=== PATIENT | female | born 1960 | race Caucasian/White ===

== ENCOUNTER 2018-05-13 11:09 | Emergency (ER) | payer MEDICARE, MEDICAID, SELFPAY ==
[2018-05-13 11:11] VITALS: BP 147/84; PULSE 79; RESP 18; TEMP 36.6; O2SAT 98; BMI 27.4
--- NOTE | 2018-05-13 11:33 | NURSING ---
JAMIE, CRISIS, AWARE OF PATIENT
--- NOTE | 2018-05-13 11:34 | ED.VISSUMM ---
- ER Visit Summary Date of Service: 05/13/18 Chief Complaint: Auditory hallucinations and suicidal History of Present Illness: The patient is a 58 F no significant past psychiatric history. Does have a history of anxiety. Per her daughter reportedly over the last month patient has been hearing people that are not there. Believes the police to come and rest her. Believes people are out to get her. This has her concerned and now she is talking about being so suicidal. She has never had a prior psychiatric diagnosis or admission. She has never had a prior suicide attempt. Physical Examination: Well-appearing middle-age female. Vital signs are stable afebrile. No distress. Daughter at bedside. HEENT exam unremarkable atraumatic. Pupils round reactive light. Moist mucous membranes. No facial droop. No trauma to the face or scalp. Neck nontender. Lungs clear to auscultation bilaterally. Heart regular rhythm no murmur. Abdomen soft nontender. Normal bowel sounds. She is moving all 4 extremities. Neurovascularly intact. Normal range of motion. Nontender no deformities. No signs of trauma or track rashid. Back nontender. Neurologically she is awake and alert. She knows month, day and year. She knows where she is in who she has. Currently she is cooperative. She is not violent. She is not verbally aggressive. Test Results: [] Emergency Department Course and Treatment: Patient will undergo ED mental health evaluation Treatment Plan: [] Disposition: [] Impression: Acute auditory hallucinations New onset underlying psychiatric illness Suicidal ideation This note was generated with [employer] dictation software. It may contain incorrect words, spelling, and punctuation that were not noted in review of the chart prior to signing ED Disposition - Plan for ED Patient: Chief Complaint: Suicidal Referrals: Valentin Paige MD [Primary Care Provider] -
[2018-05-13 12:08] LABS: Absolute Neutrophil Count 4.8 X10^3/uL (2.0-7.7); Basophil# 0.01 X10^3/uL; Basophil% 0.1 % (0-1); Eosinophil# 0.04 X10^3/uL; Eosinophils% 0.6 % (0-5); Hematocrit 39.3 % (37-47); Hemoglobin 12.7 g/dl (12.0-15.0); Lymphocyte % 22.5 % (19-41); Mean Corp Hgb Conc 32.3 g/gl (32-36); Mean Corpuscular Hgb 27.7 pg (27.0-32.0); Mean Corpuscular Volume 85.6 fL (81-99); Mean Platelet Vol. 8.9 fl (6.2-12.0); Monocyte# 0.66 X10^3/uL; Monocyte% 9.3 % (0-10); Neutrophil % 67.4 % (47-70); POSITIVE COUNT NO; POSITIVE DIFFERENTIAL NO; POSITIVE MORPHOLOGY NO; Platelet Count 286 K/mm3 (150-450); RBC Distribution Width CV 13.9 % (11.6-14.6); RBC Distribution Width SD 43.1 fl (35.1-43.9); Red Blood Count 4.59 M/mm3 (4.2-5.4); White Blood Count 7.1 K/mm3 (4.4-11.0)
[2018-05-13 12:20] LABS: Anion Gap 8 (5-15); BUN 7 mg/dL (7-18); BUN/Creat Ratio 8.6 RATIO (10-20); Calcium,Total 9.2 mg/dL (8.5-10.1); Chloride 107 mmol/L (98-107); Creatinine, Serum 0.82 mg/dL (0.55-1.02); EST Glomerular Filtration Rate 76 mL/min (>60); Est Glom Filt Rate - Afr Amer 92 mL/min (>60); Estimated Creatinine Clearance 66.47 ml/min; Glucose 99 mg/dL (74-106); Potassium 3.6 mmol/L (3.5-5.1); Sodium Level 141 mmol/L (136-145)
[2018-05-13 12:27] LABS: Pregnancy, Serum, hCG Quali. NEGATIVE Negative (0-9 Nonpreg)
[2018-05-13 12:58] LABS: Alcohol, Blood (Medical)-Serum < 3.0 mg/dL
[2018-05-13 14:14] LABS: Amphetamine Urine VISTA NEGATIVE (<1000 ng/mL); Barbiturate Urine VISTA NEGATIVE (< 200 ng/mL); Benzodiazepine Urine VISTA NEGATIVE (< 200 ng/mL); Cocaine Urine VISTA NEGATIVE (< 300 ng/mL); Ecstacy Urine VISTA NEGATIVE (< 500 ng/mL); Methadone Urine VISTA NEGATIVE (< 300 ng/mL); PCP Urine VISTA NEGATIVE (< 25 ng/mL); THC Urine VISTA NEGATIVE (< 50 ng/mL); Vista UDS pH Range 6
--- NOTE | 2018-05-13 14:20 | ED.RN ---
PT RECEIVED LUNCH TRAY. FAMILY MEMBER AT BEDSIDE, DENIES FURTHER NEEDS AT THIS TIME
--- NOTE | 2018-05-13 15:35 | EKG12_ITS ---
Test Reason : MENTAL HEALTH Blood Pressure : / mmHG Vent. Rate : 071 BPM Atrial Rate : 071 BPM P-R Int : 140 ms QRS Dur : 088 ms QT Int : 460 ms P-R-T Axes : 043 -06 019 degrees QTc Int : 499 ms Normal sinus rhythm Moderate voltage criteria for LVH, may be normal variant Prolonged QT Abnormal ECG Confirmed by LOLIS VÁZQUEZ, VIPUL ([id number]), editor producer JAYDEN SELLERS ([id number]) on 05/16/2018 9:00:14 AM Referred By: RAMIRO Confirmed By:VIPUL DANIELLE MD
[2018-05-13 15:43] LABS: Bacteria 0 SEEN /hpf (None Seen); Mucous, Urine 0 SEEN /hpf (<or=2+); Red Blood Cells-Urine 0 SEEN /hpf (0-5)
[2018-05-13 15:44] VITALS: BP 131/67; PULSE 70; O2SAT 94
[2018-05-13 15:55] LABS: Color, Urine Yellow (Yellow); Glucose, Dipstick Normal (Normal); Ketone-Dipstick Negative (Negative); Leukocyte Esterase-Dipstick Negative /ul (Negative); Nitrite-Dipstick Negative (Negative); Occult Blood-Urine 25 /ul (Negative); Protein-Dipstick Negative (Negative); Specific Gravity, Urine 1.005 (1.002-1.030); Urine Bilirubin Dipstick Negative (Negative); Urine Clarity Clear (Clear); Urine Urobilinogen Normal (Normal)
[2018-05-13 16:05] LABS: Squamous Epithelial Cells - UA 0-5 SEEN /hpf (5-10); White Blood Cells 0-5 SEEN /hpf (0-5)
[2018-05-13 16:09] LABS: AST(SGOT) 16 U/L (15-37); Alanine Aminotransfer ALT/SGPT 38 U/L (13-56); Albumin, Serum 3.6 g/dL (3.2-5.0); Alkaline Phosphatase 96 U/L (45-117); Bilirubin, Direct 0.12 mg/dL (0.00-0.30); Globulin 4.2 g/dL (2.2-4.2); Protein, Total 7.8 g/dL (6.4-8.2)
--- NOTE | 2018-05-13 17:27 | NURSING ---
[facility] 6W ROOM 625B REPORT [phone]
--- NOTE | 2018-05-13 18:00 | NURSING ---
CALLED BRANDI ROMAN IS FROM [place]
[2018-05-13 18:13] VITALS: BP 131/76; PULSE 71; RESP 18; O2SAT 92
== END 2018-05-13 18:47 | disposition short-term general hospital (02) ==
PROVIDERS: Emergency Provider Emergency Medicine; Family Provider Family Medicine; PCP Family Medicine
DX: R44.0 Auditory hallucinations (principal); F99 Mental disorder, not otherwise specified; R45.851 Suicidal ideations; F41.9 Anxiety disorder, unspecified; I10 Essential (primary) hypertension; K21.9 Gastro-esophageal reflux disease without esophagitis; Z79.899 Other long term (current) drug therapy
CPT/HCPCS: 80048; 80076; 80307; 80320; 81001; 84703; 85025; 93005; 99284; G0480

== ENCOUNTER 2018-05-27 22:23 | Observation (INO) | payer MEDICARE, MEDICAID, SELFPAY ==
[2018-05-27 22:24] VITALS: BP 138/92; PULSE 67; RESP 16; TEMP 35.9; O2SAT 99; BMI 25.8
--- NOTE | 2018-05-27 22:27 | RAD_ITS ---
STUDY: X-RAY CHEST REASON FOR EXAM: Female, 58 years old. PT WITH STERNAL CHEST PAIN AND SOB, NAUSEA. RADIATING TO LEFT ARM SINCE 2029 TECHNIQUE: Single AP portable view of the chest. COMPARISON: None. FINDINGS: The lungs are clear and expanded. There is no demonstrated pleural abnormality. Normal size heart. Normal mediastinum and sandrita. Normal visualized pulmonary arteries. Normal visualized aortic arch and descending thoracic aorta. Normal visualized thoracic spine. There is a healed fracture of the right clavicle. There is no demonstrated abnormality of the visualized soft tissue structures of the upper abdomen. RAD/Chest 1 View (Portable) IMPRESSION: Normal x-ray examination of the chest. Electronically Signed: Maik Mujica MD at 23:32 EDT Tel , Service support ,
--- NOTE | 2018-05-27 22:27 | EKG12_ITS ---
Test Reason : CP Blood Pressure : / mmHG Vent. Rate : 064 BPM Atrial Rate : 064 BPM P-R Int : 120 ms QRS Dur : 084 ms QT Int : 420 ms P-R-T Axes : -02 004 053 degrees QTc Int : 433 ms Normal sinus rhythm with sinus arrhythmia Normal ECG Confirmed by LOLIS VÁZQUEZ, VIPUL ([id number]), editor in chief newspaper JAYDEN SELLERS ([id number]) on 05/28/2018 2:20:22 PM Referred By: Ariel Jimenez Confirmed By:VIPUL DANIELLE MD
[2018-05-27 23:00] LABS: Absolute Lymphocyte Count 2.31 X10^3/ul (0.83-4.51); Absolute Neutrophil Count 3.9 X10^3/uL (2.0-7.7); Basophil# 0.02 X10^3/uL; Basophil% 0.3 % (0-1); Eosinophil# 0.04 X10^3/uL; Eosinophils% 0.6 % (0-5); Hematocrit 39.1 % (37-47); Hemoglobin 12.6 g/dl (12.0-15.0); Lymphocyte # 2.31 X10^3/ul (4.0); Lymphocyte % 32.9 % (19-41); Mean Corp Hgb Conc 32.2 g/gl (32-36); Mean Corpuscular Hgb 27.7 pg (27.0-32.0); Mean Corpuscular Volume 85.9 fL (81-99); Mean Platelet Vol. 8.9 fl (6.2-12.0); Monocyte# 0.75 X10^3/uL; Monocyte% 10.7 % (0-10); Neutrophil # 3.89 X10^3/uL (2.7-7.7); Neutrophil % 55.4 % (47-70); Platelet Count 284 K/mm3 (150-450); RBC Distribution Width CV 14.2 % (11.6-14.6); RBC Distribution Width SD 43.8 fl (35.1-43.9); Red Blood Count 4.55 M/mm3 (4.2-5.4)
[2018-05-27 23:01] LABS: POSITIVE COUNT NO; POSITIVE DIFFERENTIAL NO; POSITIVE MORPHOLOGY NO
[2018-05-27 23:07] VITALS: BP 152/72; PULSE 61; RESP 16; O2SAT 98
[2018-05-27 23:16] LABS: Anion Gap 6 (5-15); BUN 9 mg/dL (7-18); Chloride 108 mmol/L (98-107); EST Glomerular Filtration Rate 60 mL/min (>60); Est Glom Filt Rate - Afr Amer 73 mL/min (>60); Estimated Creatinine Clearance 56.71 ml/min; Glucose 95 mg/dL (74-106); Potassium 3.9 mmol/L (3.5-5.1); Sodium Level 142 mmol/L (136-145)
[2018-05-27] MEDS: Aspirin 81 MG TAB.CHEW 324 MG PO (23:31)
[2018-05-27 23:43] VITALS: BP 154/77; PULSE 63
[2018-05-27 23:53] VITALS: BP 121/77; PULSE 69
[2018-05-27 23:58] VITALS: BP 129/76; PULSE 68
[2018-05-28] VITALS (12 sets, daily range): BP systolic 123–154; BP diastolic 70–87; PULSE 55–80; RESP 15–18; TEMP 36.4–36.7; O2SAT 96–100; BMI 24.2
[2018-05-28] MEDS: Mag Hydrox/Al Hydrox/Simeth 30 ML UDC PO (01:04)
--- NOTE | 2018-05-28 01:53 | ED.VISSUMM ---
- ER Visit Summary Date of Service: 05/28/18 Chief Complaint: Mid sternal heaviness with nausea and dyspnea. History of Present Illness: The patient is a 58 F who has history of hypertension, hypercholesterolemia, CVA and was a smoker of 2 packs/day. She quit 4 years ago when she was informed she has COPD. She states discomfort started at 1900. She was on the phone. She does admit she was upset. She has history of reflux and states this is not like her reflux pain. The pain is not positional. She states the pressure radiated to the left upper extremity and down the left upper extremity towards the wrist. She denied diaphoresis. She does report bruising easily. She is presently not on aspirin. She denies fever, chills or night sweats. She denies weight gain or weight loss. She denies visual, ocular auditory symptoms. She denies palpitations. She denies orthopnea or PND. She denies vomiting, diarrhea, black or maroon stool. She denies urologic symptoms. She denies neck or back pain. She denies rash. She denies headache, anesthesia, paresthesia or motor weakness. She denies polyuria, polydipsia or polyphagia. She denies urticaria or angioedema. Physical Examination: Vital signs noted and remarkable for an elevated blood pressure 152/72. Head is atraumatic normocephalic. Pupils are equal round reactive. Extraocular muscles are intact. TMs are pearly white with landmarks noted. Nares patent with no drainage. Posterior pharynx without erythema or exudate. Uvula is midline. There is no dysphonia or dysphasia. Trachea is midline. There is no stridor with auscultation of the neck. Heart is regular without murmur, gallop or rub. S1 and S2 are normal. Lungs are clear to auscultation with good movement of air bilaterally. There is no reproducible chest pain and there are no skin lesions or rash noted. Abdomen is soft and nontender with a negative Barker sign. There is no CVA tenderness noted. There is no asymmetry, swelling, discoloration, leg vein distention, palpable cords or tenderness along the distribution of the deep venous system. Distal pulses are palpable and symmetric. Neuro exam is nonfocal. Test Results: EKG was obtained and interpreted by me as normal with a ventricular rate of 64. OK interval, QRS duration and QT interval are normal. [place] is normal. There is slight respiratory variation. Portal checks x-ray reveals chronic changes unchanged from October 25, 2015. There is orthopedic hardware secondary to open reduction internal fixation of right clavicle fracture. CBC normal basic metabolic panel is unremarkable. First troponin is less than 0.015. Emergency Department Course and Treatment: To evaluate patient's chest pain EKG, chest x-ray and blood work was obtained. She received 4 baby aspirin. She did receive nitroglycerin with improvement but not resolution. Social history of reflux GI cocktail was administered with no effect. Treatment Plan: With her multiple risk factors and the fact that she has had a prior stroke which would indicate that she has atherosclerotic disease the hospitalist was contacted for observation status and further testing to evaluate cardiac versus noncardiac etiology of her chest discomfort Disposition: 23-hour observation status PCU Impression: Midsternal chest pain History of hypertension History of hypercholesterolemia History of CVA History of COPD This note was generated with [employer] dictation software. It may contain incorrect words, spelling, and punctuation that were not noted in review of the chart prior to signing ED Disposition - Plan for ED Patient: Chief Complaint: Chest Pain Referrals: Valentin Paige MD [Primary Care Provider] -
--- NOTE | 2018-05-28 01:58 | ED.DCSUM_ITS ---
- ER Visit Summary Date of Service: 05/28/18 Chief Complaint: Mid sternal heaviness with nausea and dyspnea. History of Present Illness: The patient is a 58 F who has history of hypertension, hypercholesterolemia, CVA and was a smoker of 2 packs/day. She quit 4 years ago when she was informed she has COPD. She states discomfort started at 1900. She was on the phone. She does admit she was upset. She has history of reflux and states this is not like her reflux pain. The pain is not positional. She states the pressure radiated to the left upper extremity and down the left upper extremity towards the wrist. She denied diaphoresis. She does report bruising easily. She is presently not on aspirin. She denies fever, chills or night sweats. She denies weight gain or weight loss. She denies visual, ocular auditory symptoms. She denies palpitations. She denies orthopnea or PND. She denies vomiting, diarrhea, black or maroon stool. She denies urologic symptoms. She denies neck or back pain. She denies rash. She denies headache, anesthesia, paresthesia or motor weakness. She denies polyuria, polydipsia or polyphagia. She denies urticaria or angioedema. Physical Examination: Vital signs noted and remarkable for an elevated blood pressure 152/72. Head is atraumatic normocephalic. Pupils are equal round reactive. Extraocular muscles are intact. TMs are pearly white with landmarks noted. Nares patent with no drainage. Posterior pharynx without erythema or exudate. Uvula is midline. There is no dysphonia or dysphasia. Trachea is midline. There is no stridor with auscultation of the neck. Heart is regular without murmur, gallop or rub. S1 and S2 are normal. Lungs are clear to auscultation with good movement of air bilaterally. There is no reproducible chest pain and there are no skin lesions or rash noted. Abdomen is soft and nontender with a negative Barker sign. There is no CVA tenderness noted. There is no asymmetry, swelling, discoloration, leg vein distention, palpable cords or tenderness along the distribution of the deep venous system. Distal pulses are palpable and symmetric. Neuro exam is nonfocal. Test Results: EKG was obtained and interpreted by me as normal with a ventricular rate of 64. RI interval, QRS duration and QT interval are normal. [place] is normal. There is slight respiratory variation. Portal checks x-ray reveals chronic changes unchanged from October 25, 2015. There is orthopedic hardware secondary to open reduction internal fixation of right clavicle fracture. CBC normal basic metabolic panel is unremarkable. First troponin is less than 0.015. Emergency Department Course and Treatment: To evaluate patient's chest pain EKG, chest x-ray and blood work was obtained. She received 4 baby aspirin. She did receive nitroglycerin with improvement but not resolution. Social history of reflux GI cocktail was administered with no effect. Treatment Plan: With her multiple risk factors and the fact that she has had a prior stroke which would indicate that she has atherosclerotic disease the hospitalist was contacted for observation status and further testing to evaluate cardiac versus noncardiac etiology of her chest discomfort Disposition: 23-hour observation status PCU Impression: Midsternal chest pain History of hypertension History of hypercholesterolemia History of CVA History of COPD This note was generated with [employer] dictation software. It may contain incorrect words, spelling, and punctuation that were not noted in review of the chart prio r to signing ED Disposition - Plan for ED Patient: Chief Complaint: Chest Pain Referrals: Valentin Paige MD [Primary Care Provider] -
--- NOTE | 2018-05-28 02:05 | PCM.HP.STD ---
Problem List (1) Chest pain at rest Status: Acute (2) Dyslipidemia Status: Acute (3) COPD (chronic obstructive pulmonary disease) Status: Chronic Qualifiers: COPD type: unspecified COPD Qualified Code(s): J44.9 - Chronic obstructive pulmonary disease, unspecified (4) HTN (hypertension) Status: Acute Qualifiers: Hypertension type: essential hypertension Qualified Code(s): I10 - Essential (primary) hypertension History of Present Illness Date of Admission: 05/28/18 Chief Complaint: chest Pain The patient is a 58 year old F with a significant history of radiographically identified CVA without symptoms; former smoker( quit 4 years ago after diagnosis of COPD); COPD; hypertension; hyperlipidemia; depression; anxiety; bipolar; nephrectomy (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 He reports being upset an hour before the chest pain started. She rated chest pain at a 7 out of 10. Associated with symptoms is nausea without vomiting. Patient also reports numbness in her left fingers that goes up to her left arm. She reports that her chest pain is different from her symptoms of GERD. At emergency department she was given GI cocktail that did not really help her. She admits some improvement with nitroglycerin brought her pain from a 7 to a 5. In the past patient had a chemical stress test. She reports unable to do a treadmill stress test due to probable arthritis. Patient reports that an echocardiogram at [facility] was that showed a valvular disease. Chest pain Admit to a monitored bed on PCU CXR independently reviewed confirms no acute cardiopulmonary process. EKG independently reviewed confirms sinus rhythm without any T wave or ST abnormalities. Obtain patient records from [facility]. Received aspirin 324 mg at emergency department. ASA 81 mg p.o. daily SL NTG 0.4 mg prn as needed for chest pain Serial cardiac enzymes Stat EKG as needed for chest pain Home beta-michael and lisinopril continued. Statin escalated to high intensity statins. Chemical stress test in the AM if the cardiac enzymes are negative Hypertension Blood pressure fairly controlled at admission Amlodipine and metoprolol continue GERD Protonix continued COPD/Asthma Stable on admission Albuterol and tiotropium continued Anxiety/Depression/Bipolar Effexor and Abilify continued DVT prophylaxis ordered. Past Medical History Past Medical History (Chronic Problems): Chronic Problems (Last Reviewed 05/28/18 @ 03:41 by Ariel Jimenez MD) COPD (chronic obstructive pulmonary disease) (Chronic) Medical History: Medical History (Last Reviewed 05/28/18 @ 03:41 by Ariel Jimenez MD) Anxiety (Acute) F41.9 Cardiac murmur (Acute) R01.1 Asthma (Acute) J45.909 Hemorrhoid (Acute) K64.9 GERD (gastroesophageal reflux disease) (Acute) K21.9 Personal history of colonic polyps (Acute) Z86.010 Dyslipidemia (Acute) E78.5 Bilateral carotid artery stenosis without cerebral infarction (Acute) I65.23 Non-rheumatic aortic sclerosis (Acute) I70.0 Aortic valve stenosis (Acute) I35.0 COPD (chronic obstructive pulmonary disease) (Chronic) J44.9 HTN (hypertension) (Acute) I10 Allergies No Known Allergies Allergy (Verified 05/13/18 11:14) Home Medications: Ambulatory Orders Medication Instructions Recorded amlodipine 10 mg tablet 10 mg PO QDAY 04/03/18 atorvastatin 10 mg tablet 10 mg PO QDAY 04/03/18 benzonatate 100 mg capsule 100 mg PO TID PRN 04/03/18 escitalopram 5 mg tablet 5 mg PO QDAY 04/03/18 lisinopril 20 mg tablet 40 mg PO BID tab 04/03/18 lorazepam 0.5 mg tablet 0.5 mg PO QHS PRN 04/03/18 metoprolol tartrate 25 mg tablet 50 mg PO BID tab 04/03/18 omeprazole 40 mg capsule,delayed 40 mg PO BID cap 04/03/18 release tiotropium bromide 2.5 2 puff INHALATION QDAY 04/03/18 mcg/actuation mist for inhalation Albuterol IH (ProAir) [Proair Hfa 2 puff INHALATION Q4H PRN PRN 05/13/18 (SP)Vent Pts] Fluticasone/Vilanterol [Breo 1 each IH DAILY 05/13/18 Ellipta Inhaler] Loperamide [Imodium] 2 mg PO Q6H PRN PRN 05/13/18 Aripiprazole [Abilify] 10 mg PO DAILY 05/27/18 Venlafaxine XR [Effexor Xr] 37.5 mg PO DAILY 05/27/18 Surgical History: Surgical History (Last Reviewed 05/28/18 @ 03:41 by Ariel Jimenez MD) History of colonoscopy Onset Date: ~2014 Z98.890 History of kidney donation Z90.5 History of tubal ligation Z98.51 Surgical History: angioplasty, - - cardiac catheterization 1 yr ago, L nephrectomy, R shoulder surgery Psychiatric History: Anxiety [employer] WORK[employer] History: 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 Denies: Palpitations Respiratory: Denies: Cough, Shortness of breath at rest, Sputum production Gastrointestinal: Reports: Nausea. Denies: Abdominal Pain, Vomiting Genitourinary: Denies: Dysuria Musculoskeletal: Denies: Joint Pain, Joint Tenderness Skin: Denies: Rash, Wounds Neurological: Reports: Numbness - From left fingers extending to left arm.. Denies: Focal weakness, Tingling Psychiatric: Denies: Anxiety, Depression, Homicidal Ideations, Suicidal Ideations Hematologic/ Lymphatic: Denies: Easy Bruising, Easy Bleeding VTE Information - Inpt Only VTE Present on Admission: No VTE Mechan Device Prophylaxis: None VTE Pharm Prophylaxis ordered?: Yes Patient Problems: Active and Suspected Problems (Last Reviewed 05/28/18 @ 03:41 by Ariel Jimenez MD) Chest pain at rest (Acute) - Physical Exam General: Alert, Oriented x3, Cooperative HEENT: Atraumatic, PERRLA, EOMI, Normocephalic Neck: Supple, No JVD, Negative Carotid Bruits Lungs: Clear to auscultation, Normal air movement Cardiovascular: Regular rate, No murmurs Abdomen: Bowel Sounds Present, Soft, Non Tender Extremities: No edema, Capillary Refill Less than 3 Seconds Skin: No rashes, No breakdown Musculoskeletal: No Tenderness to Palpation of Joints or Extremities Neurological: Cranial nerves II-XII grossly intact Psych/Mental Status: Normal Affect, Appropriate Vital Signs Temp Pulse Resp BP Pulse Ox 96.7 F L 59 L 16 141/74 H 97 05/27/18 22:24 05/28/18 02:04 05/28/18 02:04 05/28/18 02:04 05/28/18 02:04 Oxygen Flow Rate (L/min) 2 Oxygen Delivery Method Nasal Cannula Weight: 72.575 kg Body Mass Index (BMI) 25.8 Laboratory Tests Past 24 Hrs 05/27/18 05/27/18 22:50 22:50 WBC 7.0 RBC 4.55 Hgb 12.6 Hct 39.1 MCV 85.9 MCH 27.7 MCHC 32.2 RDW 14.2 RDW Differential 43.8 Plt Count 284 MPV 8.9 Immature Gran % (Auto) 0.100 Neut % (Auto) 55.4 Lymph % (Auto) 32.9 [place] % (Auto) 10.7 H Eos % (Auto) 0.6 Baso % (Auto) 0.3 Absolute Neuts (auto) 3.9 Absolute Lymphs (auto) 2.31 Total Counted Not Reportable Sodium 142 Potassium 3.9 Chloride 108 H Carbon Dioxide 28.0 Anion Gap 6 BUN 9 Creatinine 1.00 Estim Creat Clear Calc 56.71 Est GFR (MDRD) Af Amer 73 Est GFR (MDRD) Non-Af 60 BUN/Creatinine Ratio 9.0 L Glucose 95 Calcium 9.0 Troponin I < 0.015 Assessment/Plan All Active Problems (Last Reviewed 05/28/18 @ 03:41 by Ariel Jimenez MD) Chest pain at rest (Acute) Anxiety (Acute) Cardiac murmur (Acute) Asthma (Acute) Hemorrhoid (Acute) GERD (gastroesophageal reflux disease) (Acute) Personal history of colonic polyps (Acute) Dyslipidemia (Acute) Bilateral carotid artery stenosis without cerebral infarction (Acute) Non-rheumatic aortic sclerosis (Acute) Aortic valve stenosis (Acute) HTN (hypertension) (Acute) Chest pain in adult (Acute) The patient is a 58 year old F with a significant history of radiographically identified CVA without symptoms; former smoker( quit 4 years ago after diagnosis of COPD);COPD; hypertension; hyperlipidemia; depression; anxiety; bipolar; nephrectomy (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 Chest pain Admit to a monitored bed on PCU CXR independently reviewed confirms no acute cardiopulmonary process. EKG independently reviewed confirms sinus rhythm without any T wave or ST abnormalities. Obtain patient records from [facility]. Received aspirin 324 mg at emergency department. ASA 81 mg p.o. daily SL NTG 0.4 mg prn as needed for chest pain Morphine as needed for chest pain Serial cardiac enzymes. Troponin negative so far. Stat EKG as needed for chest pain Home beta-michael and lisinopril continued. Statin escalated to high intensity statins. Chemical stress test in the AM if the cardiac enzymes are negative. N.p.o. Trend BMP. Hypertension Blood pressure fairly controlled at admission Amlodipine and metoprolol continue GERD Protonix continued COPD/Asthma Stable on admission Albuterol and tiotropium continued Anxiety/Depression/Bipolar Effexor and Abilify continued DVT prophylaxis Subcutaneous Lovenox. Code Visit OBSV E&M: 17100 Initial observation care L3
--- NOTE | 2018-05-28 03:11 | EKG12_ITS ---
Test Reason : ADM EKG Blood Pressure : / mmHG Vent. Rate : 064 BPM Atrial Rate : 064 BPM P-R Int : 128 ms QRS Dur : 090 ms QT Int : 426 ms P-R-T Axes : 013 002 041 degrees QTc Int : 439 ms Normal sinus rhythm Normal ECG When compared with ECG of 27-MAY-2018 22:25, MANUAL COMPARISON REQUIRED, DATA IS UNCONFIRMED Confirmed by LOLIS VÁZQUEZ, VIPUL ([id number]), photo editor JAYDEN SELLERS ([id number]) on 05/30/2018 3:37:04 PM Referred By: Ariel Jimenez Confirmed By:VIPUL DANIELLE MD
[2018-05-28] MEDS: Morphine 2 MG/ML Syringe IV (04:35)
[2018-05-28] MEDS: Atorvastatin Calcium 80 MG Tablet PO (04:36)
[2018-05-28] MEDS: Lisinopril 40 MG Tablet PO (04:36)
[2018-05-28] MEDS: 0.9% NaCl Peripheral Flush Adult/Peds IV (04:39)
[2018-05-28 06:01] LABS: Absolute Lymphocyte Count 1.86 X10^3/ul (0.83-4.51); Absolute Neutrophil Count 2.6 X10^3/uL (2.0-7.7); Basophil# 0.02 X10^3/uL; Basophil% 0.4 % (0-1); Eosinophil# 0.07 X10^3/uL; Eosinophils% 1.4 % (0-5); Hematocrit 36.5 % (37-47); Hemoglobin 11.6 g/dl (12.0-15.0); Lymphocyte # 1.86 X10^3/ul (4.0); Lymphocyte % 37.5 % (19-41); Mean Corp Hgb Conc 31.8 g/gl (32-36); Mean Corpuscular Hgb 27.5 pg (27.0-32.0); Mean Corpuscular Volume 86.5 fL (81-99); Mean Platelet Vol. 8.8 fl (6.2-12.0); Monocyte# 0.41 X10^3/uL; Monocyte% 8.3 % (0-10); Neutrophil % 52.4 % (47-70); Platelet Count 245 K/mm3 (150-450); RBC Distribution Width CV 14.2 % (11.6-14.6); RBC Distribution Width SD 43.9 fl (35.1-43.9); Red Blood Count 4.22 M/mm3 (4.2-5.4)
[2018-05-28 06:08] LABS: International Normalized Ratio 1.1
[2018-05-28 06:09] LABS: POSITIVE COUNT NO; POSITIVE DIFFERENTIAL NO; POSITIVE MORPHOLOGY NO; Partial Thromboplast Time 27.5 Seconds (24.1-36.2)
[2018-05-28 06:25] LABS: Anion Gap 6 (5-15); BUN 9 mg/dL (7-18); BUN/Creat Ratio 10.7 RATIO (10-20); Calcium,Total 8.5 mg/dL (8.5-10.1); Chloride 107 mmol/L (98-107); Creatinine, Serum 0.84 mg/dL (0.55-1.02); EST Glomerular Filtration Rate 73 mL/min (>60); Est Glom Filt Rate - Afr Amer 89 mL/min (>60); Estimated Creatinine Clearance 67.51 ml/min; Glucose 96 mg/dL (74-106); Potassium 3.9 mmol/L (3.5-5.1); Sodium Level 143 mmol/L (136-145)
[2018-05-28] MEDS: Ipratropium/Albuterol Sulfate 3 ML AMPUL.NEB INHALATION (06:52)
[2018-05-28] MEDS: Budesonide Respules 0.5 MG/2 ML AMPUL.NEB. INHALATION (06:53)
[2018-05-28] MEDS: amLODIPine 10 MG Tablet PO (10:29)
[2018-05-28] MEDS: Escitalopram Oxalate 10 MG Tablet 5 MG PO (10:29)
[2018-05-28] MEDS: Aspirin E.C. 81 MG Tablet PO (10:29)
[2018-05-28] MEDS: Venlafaxine XR 37.5 MG Capsule PO (10:29)
[2018-05-28] MEDS: Metoprolol Tartrate 50 MG Tablet PO (10:29)
[2018-05-28] MEDS: Pantoprazole Sodium 40 MG Tablet PO (10:29)
[2018-05-28] MEDS: ARIPiprazole 10 MG Tablet PO (10:29)
--- NOTE | 2018-05-28 10:42 | STRESSREP ---
Stress Test Report Pharmacologic myocardial perfusion stress test. 58-year-old lady with a history of chest pain. Stress protocol: Resting EKG demonstrates normal sinus rhythm with a rate of 60 bpm normal intervals and noted resting blood pressure 136/82 mmHg. 0.4 mg of regadenoson was infused per usual protocol followed by rapid intravenous saline flush injection continuous EKG monitoring was performed. At rest there were no ST or T wave changes noted suggest abnormal flow reserve peak infusion no ST or T wave changes were noted suggest abnormal flow reserve. The maximum heart rate attained was 77 bpm which was 47% of maximum predicted heart rate the maximum workload was 1 metabolic equivalent. Myocardial perfusion protocol. 12.0 mCi of technetium 99m sestamibi was injected at rest. 0.4 mg of regadenoson was infused per usual protocol peak infusion 36.4 mCi of technetium 99m sestamibi was injected stress images were obtained stress and rest images were reconstructed and compared in the short axis vertical long horizontal long axis. Gated images were also obtained Perfusion SPECT analysis: Review of the stress images demonstrate normal uptake of tracer noted in all areas of the myocardium. The resting images similarly demonstrate normal uptake of tracer noted in all areas of the myocardium. There is anterior breast attenuation artifact noted. No obvious ischemia is noted. Gated SPECT analysis: The gated ejection fraction is noted to be 51%. Conclusion: Normal pharmacologic myocardial perfusion stress test. Preserved ejection fraction.
--- NOTE | 2018-05-28 11:59 | DCINST_ITS ---
- Discharge Diagnoses Current Active Problems: Current Active and Chronic Problems (Last Reviewed 05/28/18 @ 03:41 by Ariel Jimenez MD) Chest pain at rest (Acute) You will use the following diet at home:: No restrictions Your food should be the consistency of: Regular Your liquids should be the consistency of: Regular/Thin Discharge Activity: Return to Normal Activity Weight Bearing Status: Full weight bearing Allergies/Adverse Reactions: Allergies No Known Allergies Allergy (Verified 05/13/18 11:14) Medications to take at Discharge amlodipine 10 mg tablet 10 mg PO QDAY 04/03/18 atorvastatin 10 mg tablet 10 mg PO QDAY 04/03/18 benzonatate 100 mg capsule 100 mg PO TID PRN 04/03/18 escitalopram 5 mg tablet 5 mg PO QDAY 04/03/18 lisinopril 20 mg tablet 40 mg PO BID tab 04/03/18 metoprolol tartrate 25 mg tablet 50 mg PO BID tab 04/03/18 omeprazole 40 mg capsule,delayed release 40 mg PO BID cap 04/03/18 tiotropium bromide 2.5 mcg/actuation mist for inhalation 2 puff INHALATION QDAY 04/03/18 Albuterol IH (ProAir) [Proair Hfa] 2 puff INHALATION Q4H PRN PRN 05/13/18 Fluticasone/Vilanterol [Breo Ellipta 100-25 Mcg INH] 1 each IH DAILY 05/13/18 Loperamide [Imodium] 2 mg PO Q6H PRN PRN 05/13/18 Aripiprazole [Abilify] 10 mg PO DAILY 05/27/18 Venlafaxine XR [Effexor Xr] 37.5 mg PO DAILY 05/27/18 Tramadol HCl [Ultram] 50 mg PO 4X/DAY PRN PRN #30 tab 05/28/18 The following prescriptions were given: Tramadol HCl [Ultram] 50 mg PO 4X/DAY PRN PRN #30 tab PRN Reason: Pain Primary Care Physician: Valentin Paige MD [Primary Care Provider] - Please follow up with your Primary Care Physician in: in 7-10 days Test Results: Test results from this visit will be discussed in further detail at your follow- up appointment, if applicable.
--- NOTE | 2018-05-28 12:22 | PHA.DC.MR ---
Pharmacy Service has performed discharge medication reconciliation for this patient. The patient's discharge medication list was reviewed for discrepancies and discrepancies were resolved.
--- NOTE | 2018-05-31 06:44 | DS.PCM_ITS ---
Discharge Date and Diagnosis Date of Admission: 05/28/18 Date of Discharge: 05/28/18 - Primary Discharge Diagnosis #1 musculoskeletal chest pain #2 hypertension #3 cerebrovascular disease #4 COPD - Secondary Discharge Diagnosis Chronic Problems (Last Reviewed 05/28/18 @ 03:41 by Ariel Jimenez MD) COPD (chronic obstructive pulmonary disease) (Chronic) Hospital Course and Treatment Operations: None Procedures: Nuclear stress test Summary of Care Provided: The patient is a 58 year old F who was seen in the emergency room at [facility] with chief complaint of precordial chest pain. Workup in the emergency room included an EKG which showed a normal sinus rhythm at 64 without evidence of ischemic changes. Chest x-ray revealed chronic changes unchanged from October 25, 2015, troponin was less than 0.015, CBC was normal. Patient was given nitroglycerin in the emergency room with improvement of her chest discomfort, reflux GI cocktail was administered with no effect. Hospitalist service was called to place patient in observation status on PCU, enzymes were cycled and remained negative, patient underwent a nuclear stress test on 05/28/18 which was negative for reversible ischemia. On 05/28/18, patient was seen and examined: On examination she appeared in good health and spirits. Vital signs as documented. Skin warm and dry and without overt rashes. Neck without JVD. Lungs clear. Heart exam notable for regular rhythm, normal sounds and absence of murmurs, rubs or gallops. Abdomen unremarkable and without evidence of organomegaly, masses, or abdominal aortic enlargement. Extremities nonedematous. Neuro: Cranial nerves II through XII are intact, no focal neuro deficits were noted. Psych: Patient was alert and oriented x3 and she was appropriate. Patient did not appear anxious or depressed. On 05/28/18, patient was seen and examined felt to be in stable condition for discharge home - Physical Exam Vital Signs Temp Pulse Resp BP Pulse Ox 98.1 F 80 16 143/81 H 98 05/28/18 10:20 05/28/18 11:01 05/28/18 10:20 05/28/18 10:29 05/28/18 10:20 Oxygen Flow Rate (L/min) 4 Oxygen Delivery Method Room Air Weight: 68.4 kg Body Mass Index (BMI) 24.2 Discharge Activity: Return to Normal Activity Weight Bearing Status: Full weight bearing Home Medications: Medications to take at Discharge amlodipine 10 mg tablet 10 mg PO QDAY 04/03/18 atorvastatin 10 mg tablet 10 mg PO QDAY 04/03/18 benzonatate 100 mg capsule 100 mg PO TID PRN 04/03/18 escitalopram 5 mg tablet 5 mg PO QDAY 04/03/18 lisinopril 20 mg tablet 40 mg PO BID tab 04/03/18 metoprolol tartrate 25 mg tablet 50 mg PO BID tab 04/03/18 omeprazole 40 mg capsule,delayed release 40 mg PO BID cap 04/03/18 tiotropium bromide 2.5 mcg/actuation mist for inhalation 2 puff INHALATION QDAY 04/03/18 Albuterol IH (ProAir) [Proair Hfa] 2 puff INHALATION Q4H PRN PRN 05/13/18 Fluticasone/Vilanterol [Breo Ellipta 100-25 Mcg INH] 1 each IH DAILY 05/13/18 Loperamide [Imodium] 2 mg PO Q6H PRN PRN 05/13/18 Aripiprazole [Abilify] 10 mg PO DAILY 05/27/18 Venlafaxine XR [Effexor Xr] 37.5 mg PO DAILY 05/27/18 Tramadol HCl [Ultram] 50 mg PO 4X/DAY PRN PRN #30 tab 05/28/18 Following Prescrptions Were Given to Patient: Tramadol HCl [Ultram] 50 mg PO 4X/DAY PRN PRN #30 tab PRN Reason: Pain Primary Care Physician: Valentin Paige MD [Primary Care Provider] - Please follow up with your Primary Care Physician in: in 7-10 days Disposition: Home Minutes spent on discharge:: 30 Patient Condition:: Stable Medical Necessity - Tobacco Use Smoking Status: Former smoker Meaningful Use Info Meaningful Use Diagnoses (Choose all that apply): None applicable Code Visit OBSV E&M: 51713 Observ/hosp same date L3
== END 2018-05-28 11:59 | disposition home or self-care (01) ==
LOC: ED 23:54 → PCU 05-28 02:20
PROVIDERS: Admitting Provider Hospitalist; Emergency Provider Emergency Medicine; Family Provider Family Medicine; PCP Family Medicine; Referring Provider Hospitalist; Visit Provider Internal Medicine
DX: R07.89 Other chest pain (principal); I10 Essential (primary) hypertension; J44.9 Chronic obstructive pulmonary disease, unspecified; K21.9 Gastro-esophageal reflux disease without esophagitis; E78.5 Hyperlipidemia, unspecified; F41.9 Anxiety disorder, unspecified; F31.9 Bipolar disorder, unspecified; Z86.73 Personal history of transient ischemic attack (TIA), and cerebral infarction without residual deficits; Z87.891 Personal history of nicotine dependence; Z79.51 Long term (current) use of inhaled steroids; Z79.899 Other long term (current) drug therapy; Z90.5 Acquired absence of kidney
CPT/HCPCS: 36415; 71045; 78452; 80048; 84484; 85025; 85610; 85730; 93005; 93017; 94640; 96374; 97162; 97165; 99218; 99284; A9500; A4216; G0378; J2785

== ENCOUNTER 2018-05-31 10:19 | Emergency (ER) | payer MEDICARE, MEDICAID, SELFPAY ==
[2018-05-31] VITALS (9 sets, daily range): BP systolic 131–160; BP diastolic 71–90; PULSE 60–76; RESP 14–16; TEMP 36.6; O2SAT 95–98; BMI 24.5
--- NOTE | 2018-05-31 10:53 | EKG12_ITS ---
Test Reason : [facility] [place] Blood Pressure : / mmHG Vent. Rate : 061 BPM Atrial Rate : 061 BPM P-R Int : 144 ms QRS Dur : 084 ms QT Int : 432 ms P-R-T Axes : 043 -05 028 degrees QTc Int : 434 ms Normal sinus rhythm Voltage criteria for left ventricular hypertrophy Abnormal ECG Confirmed by LOLIS VÁZQUEZ, VIPUL ([id number]), movie editor JAYDEN SELLERS ([id number]) on 06/04/2018 3:04:43 PM Referred By: GUMARO Confirmed By:VIPUL DANIELLE MD
[2018-05-31 11:08] LABS: Amphetamine Urine VISTA NEGATIVE (<1000 ng/mL); Barbiturate Urine VISTA NEGATIVE (< 200 ng/mL); Benzodiazepine Urine VISTA NEGATIVE (< 200 ng/mL); Cocaine Urine VISTA NEGATIVE (< 300 ng/mL); Ecstacy Urine VISTA NEGATIVE (< 500 ng/mL); Methadone Urine VISTA NEGATIVE (< 300 ng/mL); PCP Urine VISTA NEGATIVE (< 25 ng/mL); THC Urine VISTA NEGATIVE (< 50 ng/mL); Vista UDS pH Range 6
[2018-05-31 11:14] LABS: Absolute Lymphocyte Count 1.66 X10^3/ul (0.83-4.51); Absolute Neutrophil Count 3.3 X10^3/uL (2.0-7.7); Basophil# 0.01 X10^3/uL; Basophil% 0.2 % (0-1); Eosinophil# 0.09 X10^3/uL; Eosinophils% 1.6 % (0-5); Hematocrit 38.6 % (37-47); Hemoglobin 12.5 g/dl (12.0-15.0); Lymphocyte # 1.66 X10^3/ul (4.0); Lymphocyte % 29.6 % (19-41); Mean Corp Hgb Conc 32.4 g/gl (32-36); Mean Corpuscular Hgb 27.8 pg (27.0-32.0); Mean Platelet Vol. 9.1 fl (6.2-12.0); Monocyte# 0.57 X10^3/uL; Monocyte% 10.2 % (0-10); Neutrophil # 3.27 X10^3/uL (2.7-7.7); Neutrophil % 58.2 % (47-70); POSITIVE COUNT NO; POSITIVE DIFFERENTIAL NO; POSITIVE MORPHOLOGY NO; Platelet Count 303 K/mm3 (150-450); RBC Distribution Width CV 14.2 % (11.6-14.6); RBC Distribution Width SD 44.2 fl (35.1-43.9); Red Blood Count 4.49 M/mm3 (4.2-5.4); White Blood Count 5.6 K/mm3 (4.4-11.0)
[2018-05-31 11:27] LABS: AST(SGOT) 12 U/L (15-37); Alanine Aminotransfer ALT/SGPT 36 U/L (13-56); Albumin, Serum 3.7 g/dL (3.2-5.0); Alkaline Phosphatase 78 U/L (45-117); Anion Gap 5 (5-15); BUN 10 mg/dL (7-18); BUN/Creat Ratio 11.3 RATIO (10-20); Chloride 110 mmol/L (98-107); Creatinine, Serum 0.89 mg/dL (0.55-1.02); EST Glomerular Filtration Rate 69 mL/min (>60); Est Glom Filt Rate - Afr Amer 84 mL/min (>60); Estimated Creatinine Clearance 63.71 ml/min; Globulin 3.8 g/dL (2.2-4.2); Glucose 85 mg/dL (74-106); Potassium 4.1 mmol/L (3.5-5.1); Protein, Total 7.5 g/dL (6.4-8.2); Sodium Level 142 mmol/L (136-145)
[2018-05-31 11:30] LABS: Pregnancy, Serum, hCG Quali. NEGATIVE Negative (0-9 Nonpreg)
--- NOTE | 2018-05-31 11:56 | ED.DCSUM_ITS ---
- ER Visit Summary Date of Service: 05/31/18 Chief Complaint: Suicidal ideation History of Present Illness: The patient is a 58 F who states she has a history of bipolar disorder. She states that one month ago she was hospitalized in a psychiatric institution for suicidal thoughts. She states that she had followed up with a psychiatrist though she does not remember who and has not yet met her counselor. She states that she has been taking her medications as prescribed. She states that last night she began to hear voices and was crying and feeling rather depressed. This morning she had thoughts about taking all of her medications to kill herself. She states she talked to her daughter who recomm ended she come to the emergency department. She denies any recent ingestion or self-harm. Physical Examination: Afebrile vital signs are stable Gen: Well-nourished well-developed Head: Normocephalic atraumatic Eyes: Perrl EOMI ENT: TMs clear no rhinorrhea moist mucous membranes Neck: Supple no lymphadenopathy no JVD nontender CVS: Regular rate rhythm no murmurs normal S1-S2 Respiratory: No distress clear to auscultation bilaterally chest nontender Abdomen: Soft nontender nondistended normal bowel sounds no masses Back: Nontender Extremity: Nontender no edema Skin: Normal color no rash Neuro: alert orientated ?3 CN II-XII intact normal strength sensation reflexes gait cerebellar Psych: Depressed affect occasionally tearful. Patient at times is smiling laughing and talking on her cell phone. Admits to suicidal thoughts. Test Results: Psychiatric screening labs were obtained and were negative. Emergency Department Course and Treatment: Patient was medically cleared for crisis evaluation. Impression: 1. Bipolar disorder This note was generated with Leyou software dictation software. It may contain incorrect words, spelling, and punctuation that were not noted in review of the chart prior to signing ED Disposition - Plan for ED Patient: Chief Complaint: Suicidal Referrals: Valentin Paige MD [Primary Care Provider] -
--- NOTE | 2018-05-31 12:09 | NURSING ---
MIKHAIL, CRISIS, CALLED. SOMEONE WILL BE HERE TO SEE PATIENT
--- NOTE | 2018-05-31 12:17 | ED.RN ---
CALLED DIETARY FOR MEAL TRAY.
[2018-05-31 13:56] LABS: Bacteria 0 SEEN /hpf (None Seen); Color, Urine Straw (Yellow); Glucose, Dipstick Normal (Normal); Ketone-Dipstick Negative (Negative); Leukocyte Esterase-Dipstick Negative /ul (Negative); Mucous, Urine 0 SEEN /hpf (<or=2+); Nitrite-Dipstick Negative (Negative); Occult Blood-Urine Negative /ul (Negative); Protein-Dipstick Negative (Negative); Red Blood Cells-Urine 0 SEEN /hpf (0-5); Specific Gravity, Urine 1.005 (1.002-1.030); Squamous Epithelial Cells - UA 0 SEEN /hpf (5-10); Urine Bilirubin Dipstick Negative (Negative); Urine Clarity Clear (Clear); Urine Urobilinogen Normal (Normal); White Blood Cells 0 SEEN /hpf (0-5)
--- NOTE | 2018-05-31 18:07 | NURSING ---
CRISIS IN ROOM
[2018-06-01] VITALS (10 sets, daily range): BP systolic 137–160; BP diastolic 71–90; PULSE 62–76; RESP 15–18; O2SAT 96–100
[2018-06-01] MEDS: MELATONIN 10 MG TABLET PO (01:50)
[2018-06-01] MEDS: ARIPiprazole 10 MG Tablet PO (07:35)
[2018-06-01] MEDS: Venlafaxine XR 37.5 MG Capsule PO (07:35)
[2018-06-01] MEDS: amLODIPine 10 MG Tablet PO (07:35)
[2018-06-01] MEDS: Pantoprazole Sodium 40 MG Tablet PO (07:36)
[2018-06-01] MEDS: Metoprolol Tartrate 25 MG Tablet PO (07:36)
[2018-06-01] MEDS: Lisinopril 20 MG Tablet PO (07:36)
--- NOTE | 2018-06-01 08:02 | ED.RN ---
[facility] PRESENT FOR TRANSPORT TO FACILITY.
== END 2018-06-01 08:02 ==
PROVIDERS: Emergency Medicine; Emergency Provider Emergency Medicine; Family Provider Family Medicine; PCP Family Medicine
DX: F31.9 Bipolar disorder, unspecified (principal); J45.909 Unspecified asthma, uncomplicated; K21.9 Gastro-esophageal reflux disease without esophagitis; I35.0 Nonrheumatic aortic (valve) stenosis; I10 Essential (primary) hypertension; E78.00 Pure hypercholesterolemia, unspecified; Z79.899 Other long term (current) drug therapy
CPT/HCPCS: 80053; 80307; 80320; 81001; 84703; 85025; 93005; 99285; G0480

== ENCOUNTER 2019-05-20 15:00 | Inpatient (IN) | payer MEDICARE, MEDICAID, SELFPAY ==
[2019-04-15 10:50] VITALS: BMI 30.2
--- NOTE | 2019-05-14 21:39 | HP.PCM_ITS ---
History and Physical Date of Admission: 05/20/19 HISTORY AND PHYSICAL - COLON RESECTION FOR HEPATIC FLEXURE COLON CANCER Lissette Dubon 1960 May 14, 2019 REFERRING PHYSICIAN: Yisel Solomon MD CHIEF COMPLAINT: Hepatic colon cancer HPI: The patient is a 59 year old female with a previous history of colon polyps. The patient underwent colonoscopy on May 07, 2019 which demonstrated a 1/5 circumference: Mass in the hepatic flexure. Multiple biopsies were obtained this was marked with Judith ink. There were 2 lesions in the left colon one was larger and more polypoid the other smaller. Pathology returned as FINAL DIAGNOSIS: A) COLONIC BIOPSY (HEPATIC FLEXURE) - INVASIVE ADENOCARCINOMA. COMMENT: Specimen A was also reviewed by Dr. Raymon Bailey who agrees with the diagnosis. B) BIOPSY OF PROXIMAL LEFT COLON - VILLOUS ADENOMA. C) BIOPSY OF DISTAL LEFT COLON - SCANT FRAGMENT OF BENIGN COLONIC MUCOSA AND SUBMUCOSA WITH OBSCURING CAUTERY, AND FEATURES SUGGESTIVE OF A HYPERPLASTIC POLYP. The patient was referred for laparoscopic sigmoid resection. The patient underwent a CEA level which returned as elevated at 5.2. She is currently scheduled for CT scan of the abdomen and pelvis. She had a recent abdomen only CAT scan which demonstrates no suspicious liver lesions. She has a history of aortic regurgitation list is 2+. She echocardiogram in 2014 which demonstrated a 59% ejection fraction and no other regurgitant or other valvular abnormalities. She quit smoking in 2011. She donated her left kidney to her brother in the The patient is being seen by me today at the request of Dr. Solomon for my opinion and advice regarding upper scalp and right hemicolectomy. PAST MEDICAL HISTORY PAST SURGICAL HISTORY CURRENT MEDICATIONS ALLERGIES: Norvasc [Amlodipine]; Prozac [Fluoxetine] PERSONAL HISTORY: SOCIAL HISTORY FAMILY HISTORY: FAMILY HISTORY REVIEW OF SYMPTOMS: The review of systems data was entered by the nurse and reviewed by me Nursing Notes: Ariel Crump LPN 05/14/2019 2:04 PM Signed REVIEW OF SYSTEMS: General: The patient denies fatigue, denies weight loss, denies weight gain, denies feeling hot, and denies feelings of cold. Eyes: The patient denies glaucoma, denies eye injury/surgery, wears glasses or contacts. Ear/Nose/Throat: The patient denies allergies, denies hayfever, denies ear infections, and denies bloody noses. Cardiovascular: The patient NOTES chest pain, NOTES heart disease, NOTES high blood pressure,denies cardiac stent, denies prior heart attack, denies irregular heart beat, denies high cholesterol, denies poor circulation, denies heart failure, other cardiac issues, denies claudication, denies cold feet, denies peripheral arterial stent. Respiratory: The patient denies tuberculosis, denies pneumonia, denies frequent cough, denies pulmonary embolism, denies shortness of breath, and denies coughing up blood. Gastrointestinal: The patient denies difficulty swallowing, denies acid reflux, denies ulcers, denies vomiting, denies jaundice/hepatitis, denies gallbladder problems, denies black or tarry stools, denies hemorrhoids, denies bleeding from rectum, denies diverticulitis, denies constipation, denies diarrhea, denies loss of stool control, and denies hernias. Kidney/Bladder: The patient denies kidney stones, denies urine infections, and denies bloody urine. Skin: The patient denies a history of skin cancer, denies bleeding/changing moles, and denies a history of skin rash. Neurologic: The patient denies a history of epilepsy/convulsions, denies headaches, denies head/spinal injuries, and denies stroke/TIA. Psychiatric: The patient denies psychiatric medications, NOTES depression, and NOTES voices, denies substance abuse. Endocrine: The patient denies thyroid disorders, denies diabetes, and denies hormonal problems. Hematologic: The patient denies a history of bruising, denies bleeding, and denies anemia, denies blood clots. Infections: The patient denies a history of measles and mumps, denies rheumatic fever, and denies sexually transmitted diseases. Musculoskeletal: The patient denies back pain/injury, NOTES back problems, denies sciatica, denies knee/foot trouble, denies arthritis, or denies gout. PHYSICAL EXAMINATION: General: The patient is 59 year old female, well nourished, well hydrated in no acute distress. The patient is oriented to time, place, and person. VITALS: BP 118/68 Pulse 86 Temp 36.6 ?C (97.8 ?F) Wt 80.7 kg (178 lb) SpO2 97% BMI 28.73 kg/m? Body mass index is 28.73 kg/m?. HEENT: Normal cephalic, ataumatic, pupils are equally round, sclera are anicteric, mucous membranes are moist, oropharynx is clear. Neck has no masses, asymmetry or lymphadenopathy. Thyroid is unremarkable. Respiratory: Clear to auscultation and percussion. Normal respiratory excursion and pattern. Cardiac: Examination is regular rate and rhythm. Abdominal exam: Soft, nontender, with no palpable masses. No hepatosplenomegaly. No palpable hernias. Well-healed left flank incision Rectal exam: exam deferred Extremities: no clubbing, cyanosis or edema. No adenopathy. LABORATORY VALUES: As Noted RADIOLOGIC STUDIES: As Noted Assessment IMPRESSION: Hepatic flexure colon cancer PLAN: We extensively discussed the diagnosis and discussed the surgical options. The patient has elected to undergo colon resection I plan to perform a Laparoscopic colectomy partial right hemicolectomy- [id number]. The planned surgical procedure was discussed extensively with the patient. The risks, benefits, anticipated outcomes and possible complications and alternatives were discussed. My staff has also explained the procedure in understandable terms and the patient was given the option to take printed material concerning the planned procedure. The patient had the opportunity to ask questions concerning the planned procedure. The patient freely consents to the planned procedure. I will plan for outpatient bowel preparation including mechanical and antibiotic preparation including Neomycin and Flagyl 1gm each at 6,8, and 10pm the night before surgery. Diagnoses: (C18.3) Cancer of hepatic flexure (HCC) (primary encounter diagnosis) My findings have been communicated to Dr. Solomon via shared medical record. This note will be forwarded to Dr. Valentin Paige MD. Return to Clinic: The patient is instructed to follow-up with me 1 week post operatively. Chas Monae MD
[2019-05-15 15:26] VITALS: BP 105/70; PULSE 66; RESP 16; TEMP 36.1; O2SAT 96; BMI 28.9
[2019-05-15 17:09] LABS: Hematocrit 37.9 % (37-47); Hemoglobin 11.8 g/dL (12.0-15.0); Mean Corp Hgb Conc 31.1 g/dL (32-36); Mean Corpuscular Hgb 28.4 pg (27.0-32.0); Mean Corpuscular Volume 91.3 fL (81-99); Mean Platelet Vol. 9.1 fl (6.2-12.0); Platelet Count 297 K/mm3 (150-450); RBC Distribution Width CV 14.3 % (11.6-14.6); RBC Distribution Width SD 47.8 fl (35.1-43.9); Red Blood Count 4.15 M/mm3 (4.2-5.4)
[2019-05-15 17:34] LABS: Prothrombin Time (Protime)PT. 13.1 SECONDS (11.7-14.9)
[2019-05-15 17:35] LABS: Partial Thromboplast Time 27.8 Seconds (24.1-36.2)
[2019-05-15 17:41] LABS: AST(SGOT) 21 U/L (15-37); Alanine Aminotransfer ALT/SGPT 58 U/L (13-56); Albumin, Serum 3.4 g/dL (3.2-5.0); Alkaline Phosphatase 94 U/L (45-117); Anion Gap 6 (5-15); BUN 17 mg/dL (7-18); BUN/Creat Ratio 17.6 RATIO (10-20); Bilirubin, Direct < 0.05 mg/dL (0.00-0.30); Calcium,Total 9.2 mg/dL (8.5-10.1); Chloride 104 mmol/L (98-107); Creatinine, Serum 0.97 mg/dL (0.55-1.02); EST Glomerular Filtration Rate 62 mL/min (>60); Est Glom Filt Rate - Afr Amer 76 mL/min (>60); Estimated Creatinine Clearance 57.74 ml/min; Globulin 4.1 g/dL (2.2-4.2); Glucose 102 mg/dL (74-106); Potassium 3.9 mmol/L (3.5-5.1); Protein, Total 7.5 g/dL (6.4-8.2); Sodium Level 139 mmol/L (136-145)
[2019-05-20] VITALS (23 sets, daily range): BP systolic 85–118; BP diastolic 41–77; PULSE 56–89; RESP 14–18; TEMP 36.1–36.4; O2SAT 93–100; BMI 28.9
--- NOTE | 2019-05-20 | IMM_PTH ---
PATIENT: BETH CARSON LOC: MS3 U#:[id number] AGE/SX: 59/F ROOM: AZ312 RE05/20/[address]: Dr. Chas Monae MD : 1960 BED: 1 DIS: 05/24/2019 SPEC #: [id number] RECD: 05/22/19 12:50 STATUS: MAYA REQ #: [id number] EPHRAIM: 05/20/19 00:[address]: Chas Monae DEPT: IMMUNOHISTOCHEMISTRY RECD BY: Stephanie Mccray ENTERED: 05/22/19 12:52 SP TYPE: IMMUNO OTHR DR: Dr. Valentin Paige MD Tissues: Right colon Procedures: MSH2 (add) MLH-1 (add) MSH6 (add) Anti-PMS2 (add) AGUILAR-2 (add) HER2 JACKSON (add) P53 (add) KI-67 (initial) PHYSICIAN & INSTITUTION [place] [id number] SPECIMEN INFORMATION: Tissue Source: Right colon Clinical Info: Hepatic flexure colon cancer Specimen Number: [id number] #4 CPT code: 06575, 06007 x7 METHODOLOGY: Deparaffinized sections of prefer/formalin-fixed tissue or PAP/DQ stained slides are incubated with monoclonal/polyclonal antibodies/oligonucleotide probes. Localization is made via biotin free immunoperoxidase method. Appropriate controls are performed and reacted as expected. Results on target cell population are indicated in the following table: RESULTS: ANTIBODY / CLONE RESULT Ki-67 (30-9) positive, moderate P53 (DO-7) positive AGUILAR-2 (SP21) positive MLH-1 (M1) positive MSH2 (25D12) positive MSH6 (44) positive PMS2 (NCF3286) positive Her-2neu (CB11) positive These tests were developed and their performance characteristics determined by [facility]. They may not have been cleared or approved by the U.S. Food and Drug Administration. The FDA has determined that such clearance or approval is not necessary. The above immunohistochemical/dualISH markers are ordered and reviewed by the pathologist. INTERPRETATION: Right colon, hemicolectomy: Invasive adenocarcinoma. Result of Microsatellite Instability Study: Negative (no loss of mismatch protein; no microsatellite instability detected). AM:jackson 05/23/19
[2019-05-20 05:56] LABS: Bedside Glucose 141 mg/dL (70-110)
[2019-05-20] MEDS: Lactated Ringers 1,000 ML 40 ML IV ×2 (06:19→08:15)
[2019-05-20] MEDS: Magnesium Sulfate 4gm/100mL 4 GM/100 ML IV.SOLN. IV (06:19)
[2019-05-20] MEDS: Acetaminophen 500 MG Tablet 1000 MG PO ×2 (06:54→17:30)
[2019-05-20] MEDS: Lactated Ringers 1,000 ML 100 ML IV (06:55)
[2019-05-20] MEDS: Gabapentin 300 MG Capsule PO (07:00)
[2019-05-20] MEDS: Lidocaine/D5W 2,000 MG/250 ML IV.SOLN 24.4 MG IV (07:15)
--- NOTE | 2019-05-20 07:15 | COL._PTH ---
PATIENT: BETH CARSON LOC: MS3 U#:[id number] AGE/SX: 59/F ROOM: MS312 RE05/20/[address]: Dr. Chas Monae MD : 1960 BED: 1 DIS: 05/24/2019 SPEC #: [id number] RECD: 05/20/19 10:27 STATUS: MAYA REJessica #: [id number] EPHRAIM: 05/20/19 07:[address]: Chas Monae DEPT: SURGICAL PATHOLOGY RECD BY: Timoteo Palomo ENTERED: 05/20/19 11:42 SP TYPE: COLON OTHR DR: Dr. Valentin Paige MD Tissues: Colon, NOS Procedures: Surgery Specimen Level HEADER OPERATION: ERAS, laparoscopic hemicolectomy PRE-OP DIAGNOSIS: Hepatic flexure colon cancer TISSUE SUBMITTED: Right colon MICROSCOPIC DIAGNOSIS Right colon, hemicolectomy: Invasive adenocarcinoma. See cancer checklist below. AM:jackson 05/22/19 COMMENT COLON CANCER SUMMARY: Specimen - right colon Procedure - right hemicolectomy Tumor site - right colon Tumor size - 2.6 x 2 x 0.7 cm Macroscopic tumor perforation - not identified Histologic type - adenocarcinoma Histologic grade - low grade (well to moderately differentiated) Macroscopic tumor extension - tumor invades the submucosa Margins: Proximal margin (closest mucosal) - uninvolved by invasive carcinoma; 14cms Distal margin - uninvolved by invasive carcinoma Circumferential margin - uninvolved by invasive carcinoma Treatment effect - unknown Lymph-Vascular invasion - not identified Perineural invasion - not identified Tumor deposits - not present Other findings - lipomatous polyp Lymph nodes: Number of lymph nodes examined - 14 Number of lymph nodes involved - 0 Ancillary studies: See microsatellite instability study by IHC ([id number]) for complete details. Negative (no loss of mismatch protein; no microsatellite instability detected). PATHOLOGIC STAGE: pT1 N0 Mx The above summary is in compliance with [employer] (CAP) Cancer Protocols Checklist and [place] Joint Committee on Cancer (AJCC), Staging Manual, 8th Ed. Case has been reviewed in consultation with Dr. Najera who concurs with the above diagnosis. IDC:SJ MICROSCOPIC DESCRIPTION Slides are reviewed. GROSS DESCRIPTION Received in fixative is one container labeled with the patient's name and designated right colon. The specimen consists of an open segment of large bowel measuring 34 cm in length with attached 6 cm of terminal ileum and attached 8 cm of appendix that has an average diameter of 0.6 cm. Located 7 cm distal to the ileocecal valve is a firm, hinkle-white focally ulcerated lesion measuring 2.6 x 2 x 0.7 cm. Located approximately 12.2 cm from the distal margin of resection is a yellow-hinkle elevated polypoid lesion in the bowel measuring 3 x 3 x 1 cm. The small bowel mucosa is thrown into normal folds and is free of mass lesions. The remainder of the large bowel segment is thrown into normal folds and is also free of mass lesions. Also focally attached to the large bowel segment is a fragment of omentum measuring 30 x 17 x 2 cm. The serosa in the area of mass is inked. Serial sections of the omentum do not reveal mass lesions. The specimen is left for additional fixation. / AM:jackson 05/20/19 After fixation, serial sections through the mass does not reveal extension of mass through bowel wall. Serial sections of the yellow-hinkle elevated lesion reveals fatty cut surfaces. The attached fibrofatty tissue contains a number of nodules resembling lymph nodes. Clinical Research Scientist sections are submitted as follows: 1 - mucosal margins of excision, 2 - appendix, 3-6 - tumor, totally submitted, 7 - yellow elevated polypoid lesions, 9-12 - multiple lymph nodes in each cassette. / AM:jackson 05/21/19 TC: 0 CPT: 12656
[2019-05-20] MEDS: Bupivacaine 0.25% 30 ML Vial (07:45)
[2019-05-20] MEDS: Lidocaine/D5W 2,000 MG/250 ML IV.SOLN 2000 MG (07:52)
[2019-05-20] MEDS: BUPIVACAINE LIPOSOME/PF 20 ML VIAL OPERA.SITE (08:45)
--- NOTE | 2019-05-20 10:18 | PCM.OPRPT ---
Report of Operation Date of Procedure: 05/20/19 Pre-Operative Diagnosis: hepatic flexure cancer Post-Operative Diagnosis: hepatic flexure cancer, second judith ink susi - mid transverse colon Surgery/Procedure Performed:: laparoscopic extended right hemicolectomy medical claims examiner: Mekhi Grijalva Type of Anesthesia:: General Anesthesiologist: Adrián Dai - asa3 Specimen's removed: extended right colon Drains: none Estimated Blood Loss (mL): 250 Fluids Replaced: 1300 Description of Procedure: The patient was brought to the operating suite. Sign in was performed verifying patient, site, procedure, position, and DVT prophylaxis with SCDs. Patient 2 g of cefotetan. Preoperative bowel prep of mechanical and antibiotic comprised of GoLYTELY and then neomycin and Flagyl 1 g 3 doses evening before was given. Following induction of general anesthetic. The patient?s abdomen was prepped and draped in the usual fashion. Timeout was performed verifying patient, site, position. Local anesthetic was injected below the umbilicus. Incision made and dissection carried down to the umbilical root fascia. 2 stay sutures were placed. Incision made in the fascia, the peritoneum entered under direct visualization. A 10 mm Pleitez trocar was inserted and secured with the stay sutures. Pneumoperitoneum to 15 mmHg was insufflated. Visual inspection revealed Judith ink tattooing at the hepatic flexure and no liver abnormalities. 2 5mm ports were placed in the standard midline position and an additional foam was placed in the left upper quadrant. A third was placed in the RLQ later in the case for retraction Mobilization the avascular plane was undertaken from the base of the cecum up and around the hepatic flexure. Division of the lesser sac from the midline to the hepatic flexure was undertaken. When this was fully mobilized, the duodenum was visualized from the right flank region. Following this, division of the gastrocolic omentum was undertaken starting to the left of the tumor site and progressing from that left upper quadrant area across the midline, connecting finally to the mobilization at the site of the hepatic flexure. Care was taken to avoid injury of the middle colic vessel, the stomach, and the gastroduodenal vessels Next, the terminal ileum area was brought up and a cleavage point noted in the mesentery. Harmonic Scalpel was used to create a window in the terminal ileal mesentery and division was taken down to the ileocolic root. Next the transverse colon was grasped and the vasculature coming from the middle colic vessel was identified. A window was made in the bare area proximal to the middle colic vessels just overlying the duodenal sweep. This was also fully divided. Dissection was then carried out at the ileal colic vessel root. The artery and vein were identified and doubly clipped proximally and doubly clipped distally with Hem-o-donald clips. A second Judith ink injection was noted in the mid transverse colon was noted to be just beyond the abdominal midline to the left of midline. I spoke with Dr. Solomon and this was felt to be the left sided polypectomy site and the proximal transverse colon was quite redundant. There was noted to be a branch of the middle colic vessel which seemed takeoff directly towards the splenic flexure. This branch was protected. Dissection was continued, dividing the transverse mesocolon at the planned point of colonic transection down to the branches of the middle colic going to the middle transverse colon at the site of the tumor. Again, connecting all the way to the previous dissected area towards the ileocolic branch. Vessels were doubly clipped proximally and singly clipped distally with Hem-o-donald clips. With full dissection of the mesentery and full mobilization the colon, the upper midline incision was extended. There was some venous bleeding deep to the middle colic seeming to communicate to the previously controlled ileocolic root. This was identified and controlled with a figure of 8 suture. following this a wound protector placed. The terminal ileum and cecum ascending colon and extended transverse colon were delivered through the wound protector. Complete division of the mesentery to the bowel was undertaken at both sites. The bowel was transected with an intestinal load echelon stapler. Following this a functional stapled end-to-end anastomosis was performed between the ileum and transverse colon with an echelon stapler. The staple line was checked for hemostasis and following this the anastomosis closed with a TA stapler creating a wide triangle opening that was easily palpable. A 3-0 silk suture was used to take tension off the apex of the staple line and Betadine painted on the TA staple line. At this point, the specimen was opened on the back table. There was noted to be tumor in the expected location. Gown and gloves were changed. Pneumoperitoneum was reestablished. There was good anatomic positioning of the small bowel. It was good hemostasis along the incisions. Pneumoperitoneum was released. The midline/supraumbilical fascial defect was closed with a running 0 PDS suture. field block was performed with Exparil. Pneumoperitoneum was reestablished. The 5mm ports were removed under direct visualization with no signs of bleeding. Pneumoperitoneum was released. Skin was closed with interrupted 4-0 Monocryl subcuticular sutures. Steri-Strips and bandages were applied. The patient was brought to recovery room in stable condition. - Admit VTE Documentation VTE Present on Admission: No VTE Mechan Device Prophylaxis: SCD's VTE Pharm Prophylaxis ordered?: Yes
--- NOTE | 2019-05-20 11:30 | SUR.PHASEI ---
1123: bp 73/52 repostitioned bp cuff, stopped lidocaine, layed bed flat, rechecked bp at 1125 it was 91/46
--- NOTE | 2019-05-20 14:55 | CASEMGMT ---
Case Management Progress Note: To bedside earlier today, Attempted CM assessment and patient was not at bedside, In surgery. Cm to follow for DC Assessment and needs. Thomas Fritz RNCM
[2019-05-20] MEDS: oxyCODONE 5 MG Tablet PO (17:29)
[2019-05-20] MEDS: Ipratropium/Albuterol Sulfate 3 ML AMPUL.NEB INHALATION (19:41)
[2019-05-20] MEDS: Budesonide Respules 0.5 MG/2 ML AMPUL.NEB. INHALATION (19:41)
[2019-05-20] MEDS: Morphine 2 MG/ML Syringe IV (20:37)
[2019-05-20] MEDS: Atorvastatin Calcium 10 MG Tablet PO (21:53)
[2019-05-20] MEDS: OLANZapine 2.5 MG Tablet 7.5 MG PO (21:54)
[2019-05-20] MEDS: Docusate Sodium 100 MG Capsule PO (21:55)
[2019-05-20] MEDS: Metoprolol Tartrate 50 MG Tablet PO (21:55)
[2019-05-21] VITALS (10 sets, daily range): BP systolic 80–104; BP diastolic 42–58; PULSE 63–84; RESP 16–18; TEMP 36.2–36.7; O2SAT 92–95
[2019-05-21] MEDS: Acetaminophen 500 MG Tablet 1000 MG PO ×4 (00:11→19:06)
[2019-05-21] MEDS: oxyCODONE 5 MG Tablet PO ×4 (00:14→21:24)
[2019-05-21] MEDS: Morphine 2 MG/ML Syringe IV (03:25)
[2019-05-21] MEDS: Gabapentin 300 MG Capsule PO (05:55)
[2019-05-21 06:15] LABS: Hematocrit 31.9 % (37-47); Hemoglobin 9.8 g/dL (12.0-15.0); Mean Corp Hgb Conc 30.7 g/dL (32-36); Mean Corpuscular Hgb 28.7 pg (27.0-32.0); Mean Corpuscular Volume 93.5 fL (81-99); Mean Platelet Vol. 9.1 fl (6.2-12.0); Platelet Count 319 K/mm3 (150-450); RBC Distribution Width CV 14.8 % (11.6-14.6); RBC Distribution Width SD 50.7 fl (35.1-43.9); Red Blood Count 3.41 M/mm3 (4.2-5.4); White Blood Count 15.2 K/mm3 (4.4-11.0)
[2019-05-21 06:37] LABS: Anion Gap 7 (5-15); BUN 10 mg/dL (7-18); BUN/Creat Ratio 9.3 RATIO (10-20); Calcium,Total 8.2 mg/dL (8.5-10.1); Chloride 103 mmol/L (98-107); Creatinine, Serum 1.08 mg/dL (0.55-1.02); EST Glomerular Filtration Rate 55 mL/min (>60); Est Glom Filt Rate - Afr Amer 67 mL/min (>60); Estimated Creatinine Clearance 51.86 ml/min; Glucose 137 mg/dL (74-106); Potassium 4.7 mmol/L (3.5-5.1); Sodium Level 140 mmol/L (136-145)
--- NOTE | 2019-05-21 06:56 | PCM.PN.SRG ---
Subjective: POD # 1 - incisional pain significant - Physical Exam General: Alert, Oriented x3, Cooperative Lungs: Clear to auscultation, Normal air movement Cardiovascular: Regular rate, No murmurs Abdomen: Soft, Hypoactive Bowel Sounds, Tender - along incision Vital Signs Temp Pulse Resp BP Pulse Ox 97.1 F L 84 18 103/56 L 95 05/21/19 03:29 05/21/19 03:29 05/21/19 03:29 05/21/19 03:29 05/21/19 03:29 Oxygen Flow Rate (L/min) 2 Oxygen Delivery Method Room Air Weight: 81.4 kg Body Mass Index (BMI) 28.9 Intake and Output for Last 24 Hours 05/19/19 05/20/19 05/21/19 23:59 23:59 23:59 Intake Total 2389.8 / 2389.8 220 / 220 Output Total 0 / 0 600 / 600 Balance 2389.8 / 2389.8 -380 / -380 Laboratory Tests Past 24 Hrs 05/21/19 05/21/19 05:56 05:56 WBC 15.2 H RBC 3.41 L Hgb 9.8 L Hct 31.9 L MCV 93.5 MCH 28.7 MCHC 30.7 L RDW Std Deviation 50.7 H RDW Coeff of Ryan 14.8 H Plt Count 319 MPV 9.1 Sodium 140 Potassium 4.7 Chloride 103 Carbon Dioxide 30.0 Anion Gap 7 BUN 10 Creatinine 1.08 H Estim Creat Clear Calc 51.86 Est GFR (MDRD) Af Amer 67 Est GFR (MDRD) Non-Af 55 L BUN/Creatinine Ratio 9.3 L Glucose 137 H Calcium 8.2 L Medical Necessity - Tobacco Use Smoking Status: Former smoker Assessment/Plan All Active Problems (Last Reviewed 04/15/19 @ 11:50 by Jose Miguel Ann MD) Edema (Acute) Aortic insufficiency (Acute) Dizziness (Acute) Chest pain at rest (Resolved) Chest pain in adult (Resolved) POD # 1 s/p laparoscopic extended right hemicolectomy Hgb slight decreased - as expected given IV Fluids and estimated 250cc blood loss. few bowel sounds - will watch orals, instructed to slow down if distending Encourage ambulation and IS. Lovenox and SCDs
[2019-05-21] MEDS: Budesonide Respules 0.5 MG/2 ML AMPUL.NEB. INHALATION ×2 (07:08→19:33)
[2019-05-21] MEDS: Ipratropium/Albuterol Sulfate 3 ML AMPUL.NEB INHALATION ×2 (07:08→19:33)
[2019-05-21] MEDS: Enoxaparin 40 MG/0.4 ML Syringe SC (10:53)
[2019-05-21] MEDS: Metoprolol Tartrate 50 MG Tablet PO ×2 (10:53→21:22)
[2019-05-21] MEDS: Lactated Ringers 1,000 ML 30 ML IV (13:29)
[2019-05-21] MEDS: Ensure Clear 120 ML Liquid PO ×2 (13:31→19:06)
--- NOTE | 2019-05-21 13:45 | CASEMGMT ---
RN CM CITY COLLECTOR CM to room to meet with patient for initial transition planning/care coordination assessment. RN JYOTSNA introduced self and role at [facility]. Pt voices understanding and consents to assessment at this time. Pt resting in bed in no distress at this time. Pt is A/O at this time and answers all questions appropriately. Care providers, pharmacy, and demographics verified/updated at this time. PCP: [facility]: [facility]. sees a psychiatrist in [place] but does not remember her name Preferred Pharmacy: [facility] Insurance: [employer] Prescription Benefit: Yes Living Will/HPOA: [facility] does not have LW or HCPOA . Interested in more information but does not want to talk with SW at this time to complete paperwork. Provided information on advanced directives and given Social Service rac card with number to call if chooses in the future to utilize [facility] social work for advanced directive completion. Educated patient that, if patient so chooses, can come back to [facility] and meet with a SW as an outpatient to complete health care advanced directives. Patient expresses understanding. LNOK: 2 sons and a daughter: Jeanmarie Gay, Nirmal Dubon, and Irasema Dubon Living Arrangements: Lives alone in a one-story home with one step to enter. is independent with ADL's and home mgmt tasks. States her 3 adult children are supportive. Transportation: Daughter or free transportation through [employer] DME: Denies using any DME and denies needs. States has the following DME: Pt states no need for further DME at this time. HHC/SNF: No history of either, denies needs, and no needs identified. Pt wishes to return home and states has no concerns with going home at time of discharge. PCM to follow for any discharge planning/needs. Pt voices no further concerns/needs at this time. Advised pt to ask for CM if any further questions/concerns/needs arise. Voices understanding. PLAN: Home w/family support and discharge plans in place. Galdino THAKKAR RN, CM
[2019-05-21] MEDS: OLANZapine 2.5 MG Tablet 7.5 MG PO (21:22)
[2019-05-21] MEDS: Atorvastatin Calcium 10 MG Tablet PO (21:22)
[2019-05-22] VITALS (10 sets, daily range): BP systolic 100–109; BP diastolic 49–57; PULSE 69–86; RESP 16–20; TEMP 36.6–37.4; O2SAT 92–99
[2019-05-22] MEDS: Acetaminophen 500 MG Tablet 1000 MG PO ×4 (00:12→20:08)
--- NOTE | 2019-05-22 00:58 | NURSING ---
Minimal red emesis to gown. Pt reports having red jello early during the day. Patient instructed to slow down on liquids and no more red liquids.
[2019-05-22] MEDS: Ipratropium/Albuterol Sulfate 3 ML AMPUL.NEB INHALATION ×3 (05:49→19:24)
[2019-05-22] MEDS: Budesonide Respules 0.5 MG/2 ML AMPUL.NEB. INHALATION ×2 (05:49→19:24)
[2019-05-22 05:53] LABS: Basophil# 0.01 X10^3/uL; Basophil% 0.1 % (0-1); Eosinophil# 0.04 X10^3/uL; Eosinophils% 0.5 % (0-5); Hematocrit 29.6 % (37-47); Hemoglobin 9.4 g/dL (12.0-15.0); Lymphocyte % 19.1 % (19-41); Mean Corp Hgb Conc 31.8 g/dL (32-36); Mean Corpuscular Hgb 28.7 pg (27.0-32.0); Mean Corpuscular Volume 90.5 fL (81-99); Mean Platelet Vol. 8.9 fl (6.2-12.0); Monocyte# 0.64 X10^3/uL; Monocyte% 7.6 % (0-10); NRBC Flagged by Analyzer 0 % (0-5); Neutrophil # 6.04 X10^3/uL (2.7-7.7); Neutrophil % 72.2 % (47-70); Platelet Count 243 K/mm3 (150-450); RBC Distribution Width CV 14.6 % (11.6-14.6); RBC Distribution Width SD 48.1 fl (35.1-43.9); Red Blood Count 3.27 M/mm3 (4.2-5.4); White Blood Count 8.4 K/mm3 (4.4-11.0)
[2019-05-22] MEDS: oxyCODONE 5 MG Tablet PO ×2 (06:03→20:08)
[2019-05-22 06:16] LABS: ALB/GLOB Ratio 0.8 RATIO (0.9-2.4); AST(SGOT) 16 U/L (15-37); Alanine Aminotransfer ALT/SGPT 34 U/L (13-56); Albumin, Serum 2.6 g/dL (3.2-5.0); Alkaline Phosphatase 77 U/L (45-117); Anion Gap 6 (5-15); BUN 9 mg/dL (7-18); BUN/Creat Ratio 10.9 RATIO (10-20); Chloride 98 mmol/L (98-107); Creatinine, Serum 0.82 mg/dL (0.55-1.02); EST Glomerular Filtration Rate 75 mL/min (>60); Est Glom Filt Rate - Afr Amer 91 mL/min (>60); Globulin 3.4 g/dL (2.2-4.2); Glucose 107 mg/dL (74-106); Potassium 4.1 mmol/L (3.5-5.1); Sodium Level 134 mmol/L (136-145)
[2019-05-22] MEDS: Gabapentin 300 MG Capsule PO (10:33)
[2019-05-22] MEDS: Enoxaparin 40 MG/0.4 ML Syringe SC (10:33)
[2019-05-22] MEDS: hydroCHLOROthiazide 12.5mg 12.5 MG PO (10:33)
[2019-05-22] MEDS: Metoprolol Tartrate 50 MG Tablet PO ×2 (10:34→23:26)
[2019-05-22] MEDS: Lisinopril 40 MG Tablet PO (10:34)
[2019-05-22] MEDS: Ensure Clear 120 ML Liquid PO ×2 (10:36→23:26)
--- NOTE | 2019-05-22 11:47 | PCM.PN.SRG ---
Subjective: Patient complaint of abdominal pain, hasn't ambulated much demonstrated to me incentive spirometry which showed a poor effort - Physical Exam General: Alert, Oriented x3 Oral: Moist Mucosa Neck: Supple Lungs: Normal air movement Abdomen: Soft - generalized tenderness, dressings are intact, no seepage noted Vital Signs Temp Pulse Resp BP Pulse Ox 98.1 F 69 16 109/57 L 99 05/22/19 08:34 05/22/19 10:34 05/22/19 08:34 05/22/19 08:34 05/22/19 08:34 Oxygen Flow Rate (L/min) 2 Oxygen Delivery Method Nasal Cannula Weight: 81.4 kg Body Mass Index (BMI) 28.9 Intake and Output for Last 24 Hours 05/20/19 05/21/19 05/22/19 23:59 23:59 23:59 Intake Total 2389.8 / 2389.8 1920 / 1920 Output Total 0 / 0 1000 / 1000 700 / 700 Balance 2389.8 / 2389.8 920 / 920 -700 / -700 Laboratory Tests Past 24 Hrs 05/22/19 05/22/19 05:30 05:30 WBC 8.4 RBC 3.27 L Hgb 9.4 L Hct 29.6 L MCV 90.5 MCH 28.7 MCHC 31.8 L RDW Std Deviation 48.1 H RDW Coeff of Ryan 14.6 Plt Count 243 MPV 8.9 Immature Gran % (Auto) 0.500 Neut % (Auto) 72.2 H Lymph % (Auto) 19.1 [place] % (Auto) 7.6 Eos % (Auto) 0.5 Baso % (Auto) 0.1 Absolute Neuts (auto) 6.0 Absolute Lymphs (auto) 1.60 Nucleated RBC % 0 Sodium 134 L Potassium 4.1 Chloride 98 Carbon Dioxide 30.0 Anion Gap 6 BUN 9 Creatinine 0.82 Estim Creat Clear Calc 68.30 Est GFR (MDRD) Af Amer 91 Est GFR (MDRD) Non-Af 75 BUN/Creatinine Ratio 10.9 Glucose 107 H Calcium 8.0 L Total Bilirubin 0.40 AST 16 ALT 34 Alkaline Phosphatase 77 Total Protein 6.0 L Albumin 2.6 L Globulin 3.4 Albumin/Globulin Ratio 0.8 L Medical Necessity - Tobacco Use Smoking Status: Former smoker Assessment/Plan All Active Problems (Last Reviewed 04/15/19 @ 11:50 by Jose Miguel Ann MD) Edema (Acute) Aortic insufficiency (Acute) Dizziness (Acute) Chest pain at rest (Resolved) Chest pain in adult (Resolved) POD#2 laparoscopic right hemicolectomy Discussion/Plan: I have encouraged patient to ambulated when instructed also encouraged her to do incentive spirometry continue present therapy
[2019-05-22] MEDS: Atorvastatin Calcium 10 MG Tablet PO (23:25)
[2019-05-22] MEDS: OLANZapine 2.5 MG Tablet 7.5 MG PO (23:25)
[2019-05-22] MEDS: Lactated Ringers 1,000 ML 30 ML IV (23:27)
[2019-05-23] VITALS (9 sets, daily range): BP systolic 92–125; BP diastolic 50–72; PULSE 65–100; RESP 16–20; TEMP 36.6–37.3; O2SAT 93–96
[2019-05-23] MEDS: Acetaminophen 500 MG Tablet 1000 MG PO ×3 (00:51→17:04)
[2019-05-23] MEDS: oxyCODONE 5 MG Tablet PO ×3 (03:26→20:53)
[2019-05-23] MEDS: Ipratropium/Albuterol Sulfate 3 ML AMPUL.NEB INHALATION ×2 (07:07→19:47)
[2019-05-23] MEDS: Budesonide Respules 0.5 MG/2 ML AMPUL.NEB. INHALATION ×2 (07:07→19:47)
--- NOTE | 2019-05-23 07:15 | PCM.PN.SRG ---
Subjective: passing flatus and small bowel movement, significant incisional pain - Physical Exam General: Alert, Oriented x3, Cooperative Lungs: Clear to auscultation, Normal air movement Cardiovascular: Regular rate, No murmurs Abdomen: Bowel Sounds Present, Soft, Tender - along upper midline incision, no lateral abdominal tenderness Vital Signs Temp Pulse Resp BP Pulse Ox 98 F 65 18 92/50 L 94 05/23/19 02:16 05/23/19 02:16 05/23/19 02:16 05/23/19 02:16 05/23/19 02:16 Oxygen Flow Rate (L/min) 2 Oxygen Delivery Method Room Air Weight: 81.4 kg Body Mass Index (BMI) 28.9 Intake and Output for Last 24 Hours 05/21/19 05/22/19 05/23/19 23:59 23:59 23:59 Intake Total 1920 / 1920 1000 / 1400 600 / 600 Output Total 1000 / 1000 700 / 1300 900 / 900 Balance 920 / 920 300 / 100 -300 / -300 Medical Necessity - Tobacco Use Smoking Status: Former smoker Assessment/Plan All Active Problems (Last Reviewed 04/15/19 @ 11:50 by Jose Miguel Ann MD) Edema (Acute) Aortic insufficiency (Acute) Dizziness (Acute) Chest pain at rest (Resolved) Chest pain in adult (Resolved) POD # 3 s/p laparoscopic extended right hemicolectomy Hgb slight decreased - as expected given IV Fluids and estimated 250cc blood loss. normoactive bowel sounds, passing flatus and small bowel movement. Will advance to soft diet Encourage ambulation and IS. - will try alternating oxycodone and Motrin Lovenox and SCDs
[2019-05-23] MEDS: Ensure Clear 120 ML Liquid PO ×2 (11:42→14:00)
[2019-05-23] MEDS: Metoprolol Tartrate 50 MG Tablet PO ×2 (11:48→22:13)
[2019-05-23] MEDS: hydroCHLOROthiazide 12.5mg 12.5 MG PO (11:48)
[2019-05-23] MEDS: Enoxaparin 40 MG/0.4 ML Syringe SC (11:49)
[2019-05-23] MEDS: Gabapentin 300 MG Capsule PO (11:50)
[2019-05-23] MEDS: Lisinopril 40 MG Tablet PO (11:51)
[2019-05-23] MEDS: Atorvastatin Calcium 10 MG Tablet PO (22:13)
[2019-05-23] MEDS: OLANZapine 2.5 MG Tablet 7.5 MG PO (22:13)
[2019-05-24] MEDS: Acetaminophen 500 MG Tablet 1000 MG PO ×2 (00:32→05:39)
[2019-05-24 02:59] VITALS: BP 116/41; PULSE 67; RESP 16; TEMP 37; O2SAT 96
[2019-05-24] MEDS: Lactated Ringers 1,000 ML 30 ML IV (05:39)
--- NOTE | 2019-05-24 05:54 | DCINST_ITS ---
Discharge Diet: Light diet - advance as tolerated Discharge Activity: Return to Normal Activity, May Not Drive - while taking narcotic pain medications. Additional Activity Instructions:: Do not drive or work with heavy equipment or sign legal documents for 24 hours. Be aware that pain medications may cause na usea. You should typically eat light foods as you take your pain medications. Pain medications may also cause constipation, if you have difficulty with this please discuss with your doctor. Call your doctor if your incision/area has: Continuous Slow Oozing, Foul Smelling Discharge Call your doctor if you observe: Fever of 101 or Higher, Coldness, Increased Pain, Numbness or Tingling Cleanse incision/area with: Soap & Water Additional Dressing/Incision Instructions:: May remove the operative bandages. Allergies/Adverse Reactions: Allergies amlodipine [From Norvasc] Allergy (Intermediate, Verified 05/20/19 05:55) Swelling fluoxetine [From Prozac] Allergy (Intermediate, Verified 05/20/19 05:55) mental status change aspirin Allergy (Verified 05/20/19 05:55) Other ONLY HAS 1 KIDNEY NSAIDS (Non-Steroidal Anti-Inflamma Allergy (Verified 05/20/19 05:55) Other HAS ONLY 1 KIDNEY Medications to take at Discharge atorvastatin 10 mg tablet 10 mg PO QDAY 04/03/18 omeprazole 40 mg capsule,delayed release 40 mg PO BID cap 04/03/18 tiotropium bromide 2.5 mcg/actuation mist for inhalation 2 puff INHALATION QDAY 04/03/18 albuterol sulfate HFA 90 mcg/actuation aerosol inhaler 2 puff INHALATION Q6H PRN g 04/09/19 fluticasone furoate 200 mcg-vilanterol 25 mcg/dose inhalation powder 1 inh INHALATION DAILY 04/09/19 gabapentin 300 mg capsule 300 mg PO .COMPLEX 04/09/19 lisinopril 40 mg tablet 40 mg PO DAILY tab 04/09/19 metoprolol tartrate 50 mg tablet 50 mg PO BID 04/09/19 furosemide 20 mg tablet 20 mg PO DAILY PRN #30 tab 04/15/19 olanzapine 7.5 mg tablet 7.5 mg PO QHS 04/15/19 Hydrochlorothiazide 12.5 mg PO DAILY 05/15/19 Budesonide Aerosol [Pulmicort Respules] 0.5 mg INHALATION Q12H.RT ampul.neb. 05/24/19 Ibuprofen [Motrin] 400 mg PO Q4H PRN PRN tab 05/24/19 Oxycodone [Oxyir] 5 - 10 mg PO Q4H PRN PRN 4 Days #10 tab 05/24/19 The following prescriptions were given: Oxycodone [Oxyir] 5 - 10 mg PO Q4H PRN PRN 4 Days #10 tab PRN Reason: Pain Score 4-10/10 Prescription Printed Primary Care Physician: Valentin Paige MD [Primary Care Provider] - Test Results: Test results from this visit will be discussed in further detail at your follow- up appointment, if applicable. Please Follow Up With: Chas Monae MD - [phone] When: Plan to have a follow up approximately 7 days.
[2019-05-24 07:47] VITALS: PULSE 80; RESP 18; O2SAT 95
[2019-05-24] MEDS: Budesonide Respules 0.5 MG/2 ML AMPUL.NEB. INHALATION (07:47)
[2019-05-24] MEDS: Ipratropium/Albuterol Sulfate 3 ML AMPUL.NEB INHALATION (07:47)
[2019-05-24 08:12] VITALS: BP 108/58; PULSE 73; RESP 18; TEMP 36.9; O2SAT 93
[2019-05-24 08:20] VITALS: BP 108/58; PULSE 73
[2019-05-24] MEDS: Lisinopril 40 MG Tablet PO (08:20)
[2019-05-24] MEDS: hydroCHLOROthiazide 12.5mg 12.5 MG PO (08:20)
[2019-05-24] MEDS: Metoprolol Tartrate 50 MG Tablet PO (08:20)
[2019-05-24] MEDS: Gabapentin 300 MG Capsule PO (08:21)
[2019-05-24] MEDS: oxyCODONE 5 MG Tablet PO (08:24)
[2019-05-24 10:05] VITALS: BP 108/58; PULSE 73; RESP 18; TEMP 36.9; O2SAT 93
--- NOTE | 2019-05-27 15:54 | CASEMGMT ---
EDOUARD GOYAL Discharge Follow-up Phone Call: CORTES: Adenike Strata: 3 Call Date: 05/27/19 Discharge Date: 05/24/19 Time of Call: 1555 Duration: 3 min Admitting Diagnosis: ERAS Lap Right Hemicolectomy EDOUARD GOYAL completed follow-up phone call after recent hospitalization. Patient states she is doing ok but is still having pain. Patient states that she is out of her pain medication and has follow-up appt with Dov on 05/30. EDOUARD GOYAL instructed patient to call Dr. Monae's office to updated him on her continued pain and to inquire about pain medication. Patient denies further questions at this time.
--- NOTE | 2019-06-02 11:47 | PCM.DC.SUM ---
Discharge Date and Diagnosis Date of Admission: 05/20/19 Date of Discharge: 05/24/19 - Primary Discharge Diagnosis hepatic flexure colon cancer - Secondary Discharge Diagnosis Chronic Problems (Last Reviewed 04/15/19 @ 11:50 by Jose Miguel Ann MD) Non-rheumatic aortic stenosis (Chronic) 2d echo Bicuspid aortic valve (Chronic) Essential hypertension (Chronic) Asthma (Chronic) GERD (gastroesophageal reflux disease) (Chronic) Dyslipidemia (Chronic) Bilateral carotid artery stenosis without cerebral infarction (Chronic) Non-rheumatic aortic sclerosis (Chronic) Hospital Course and Treatment Operations: None, colectomy Summary of Care Provided: The patient is a 59 year old F with a diagnosis of a hepatic flexure colon cancer who presented for laparoscopic standard right hemicolectomy was performed on May 20, 2019. The patient had incisional pain postoperatively but she had return of bowel functions able to be discharged home on postoperative day 4 - Physical Exam General: Alert, Oriented x3, Cooperative Lungs: Clear to auscultation, Normal air movement Cardiovascular: Regular rate, No murmurs Abdomen: Bowel Sounds Present - except the incisions, Soft, Non Tender Vital Signs Temp Pulse Resp BP Pulse Ox 98.5 F 73 18 108/58 L 93 05/24/19 10:05 05/24/19 10:05 05/24/19 10:05 05/24/19 10:05 05/24/19 10:05 Oxygen Flow Rate (L/min) 2 Oxygen Delivery Method Room Air Weight: 81.4 kg Body Mass Index (BMI) 28.9 Discharge Diet: Light diet - advance as tolerated Discharge Activity: Return to Normal Activity, May Not Drive - while taking narcotic pain medications. Additional Activity Instructions:: Do not drive or work with heavy equipment or sign legal documents for 24 hours. Be aware that pain medications may cause nausea. You should typically eat light foods as you take your pain medications. Pain medications may also cause constipation, if you have difficulty with this please discuss with your doctor. Call your doctor if your incision/area has: Continuous Slow Oozing, Foul Smelling Discharge Call your doctor if you observe: Fever of 101 or Higher, Coldness, Increased Pain, Numbness or Tingling Cleanse incision/area with: Soap & Water Additional Dressing/Incision Instructions:: May remove the operative bandages. Home Medications: Medications to take at Discharge atorvastatin 10 mg tablet 10 mg PO QDAY 04/03/18 omeprazole 40 mg capsule,delayed release 40 mg PO BID cap 04/03/18 tiotropium bromide 2.5 mcg/actuation mist for inhalation 2 puff INHALATION QDAY 04/03/18 albuterol sulfate HFA 90 mcg/actuation aerosol inhaler 2 puff INHALATION Q6H PRN g 04/09/19 fluticasone furoate 200 mcg-vilanterol 25 mcg/dose inhalation powder 1 inh INHALATION DAILY 04/09/19 gabapentin 300 mg capsule 300 mg PO .COMPLEX 04/09/19 lisinopril 40 mg tablet 40 mg PO DAILY tab 04/09/19 metoprolol tartrate 50 mg tablet 50 mg PO BID 04/09/19 furosemide 20 mg tablet 20 mg PO DAILY PRN #30 tab 04/15/19 olanzapine 7.5 mg tablet 7.5 mg PO QHS 04/15/19 Hydrochlorothiazide 12.5 mg PO DAILY 05/15/19 Budesonide Aerosol [Pulmicort Respules] 0.5 mg INHALATION Q12H.RT ampul.neb. 05/24/19 Ibuprofen [Motrin] 400 mg PO Q4H PRN PRN tab 05/24/19 Primary Care Physician: Valentin Paige MD [Primary Care Provider] - Please Follow Up With: Chas Monae MD - [phone] When: Plan to have a follow up approximately 7 days. Medical Necessity - Tobacco Use Smoking Status: Former smoker Meaningful Use Info Meaningful Use Diagnoses (Choose all that apply): None applicable
== END 2019-05-24 10:10 | disposition home or self-care (01) | DRG 331 ==
LOC: ACINP 05-21 11:20 → MS3 05-21 11:20
PROVIDERS: Anesthesiology; Admitting Provider Surgery; Family Provider Family Medicine; PCP Family Medicine; Referring Provider Surgery; Visit Provider Surgery
PROC: 0DTF4ZZ Resection of Right Large Intestine, Percutaneous Endoscopic Approach (ICD-10-PCS; CPT 44205; principal; 2019-05-20 06:55)
DX: C18.3 Malignant neoplasm of hepatic flexure (principal); Z86.010 Personal history of colon polyps; Z90.5 Acquired absence of kidney
CPT/HCPCS: 36415; 80048; 80053; 80076; 82962; 85025; 85027; 85610; 85730; 88309; 88341; 88342; 94640; 99406; J7050; J7120; A4216; J2405

== ENCOUNTER 2022-04-08 16:52 | Emergency (ER) | payer MEDICARE, MEDICAID, SELFPAY ==
[2022-04-08] VITALS (7 sets, daily range): BP systolic 122–197; BP diastolic 65–106; PULSE 64–75; RESP 16–22; TEMP 36.8; O2SAT 93–98; BMI 32.1
--- NOTE | 2022-04-08 17:20 | EKG12_ITS ---
Test Reason : Blood Pressure : / mmHG Vent. Rate : 065 BPM Atrial Rate : 065 BPM P-R Int : 138 ms QRS Dur : 084 ms QT Int : 454 ms P-R-T Axes : 035 -06 042 degrees QTc Int : 472 ms Normal sinus rhythm Minimal voltage criteria for LVH, may be normal variant ( R in aVL ) Borderline ECG Confirmed by NE VÁZQUEZ, DAMIEN ([id number]), food expeditor RICK DUNNE ([id number]) on 04/12/2022 11:47:51 AM Referred By: KENDALL Confirmed By:DAMIEN OLIVIA MD
--- NOTE | 2022-04-08 17:20 | RAD_ITS ---
STUDY: XR Chest 1 View 04/08/2022 5:23 PM REASON FOR EXAM: Female, 62 years old. CHEST PAIN chest pain COMPARISON: 05/27/2018 TECHNIQUE: XR Chest 1 View FINDINGS: There is no demonstrated pleural abnormality. There is a metal sideplate transfixing the right clavicle. There are cortical screws holding the plate in place. Normal heart size. Normal mediastinum. Normal sandrita. Prominent appearing increased interstitial lung markings. Normal visualized pulmonary arteries. There is atherosclerotic calcification of the aortic arch with tortuosity. There are diffuse degenerative changes of the visualized thoracic spine. There is degenerative osteoarthritis of the bilateral shoulders. There is no demonstrated abnormality of the visualized soft tissue structures of the upper abdomen. RAD/Chest 1 View (Portable) IMPRESSION: There are no acute findings. Electronically Signed: Alberto Hunt MD at 18:01 EDT ,
[2022-04-08 17:47] LABS: Absolute Lymphocyte Count 2.57 X10^3/uL (0.83-4.51); Absolute Neutrophil Count 2.8 X10^3/uL (2.0-7.7); Basophil# 0.03 X10^3/uL; Basophil% 0.5 % (0-1); Eosinophil# 0.08 X10^3/uL; Eosinophils% 1.3 % (0-5); Hematocrit 41.1 % (37-47); Hemoglobin 13.2 g/dL (12.0-15.0); Lymphocyte # 2.57 X10^3/ul (0.83-4.51); Lymphocyte % 42.2 % (19-41); Mean Corp Hgb Conc 32.1 g/dL (32-36); Mean Corpuscular Hgb 27.9 pg (27.0-32.0); Mean Corpuscular Volume 86.9 fL (81-99); Mean Platelet Vol. 9.4 fl (6.2-12.0); Monocyte# 0.58 X10^3/uL; Monocyte% 9.5 % (0-10); NRBC Flagged by Analyzer 0 % (0-5); Neutrophil # 2.82 X10^3/uL (2.7-7.7); Neutrophil % 46.3 % (47-70); Platelet Count 275 K/mm3 (150-450); RBC Distribution Width CV 13.8 % (11.6-14.6); RBC Distribution Width SD 43.7 fl (35.1-43.9); Red Blood Count 4.73 M/mm3 (4.2-5.4); White Blood Count 6.1 K/mm3 (4.4-11.0)
--- NOTE | 2022-04-08 17:53 | EDS_ITS ---
HPI History of Present Illness Chief Complaint: Chest Pain Informant: patient Onset/Context/Timing Onset: Today Activity at onset: activity on onset, light activity and exertion Timing: Intermittent Quality: Positive for Pressure Location: Substernal (Without radiation) Current Severity: Gone Maximum Severity: Moderate Worsened By: Exertion; Not Worsened By Breathing or Coughing Relieved By: Rest Associated Symptoms: Positive for Dyspnea and Cough; Negative for Nausea, Vomiting, Diaphoresis, Fever, Lightheadedness or Palpitations Narrative Narrative: Patient states she has felt like her COPD is flared up over the last several days, starting this morning over 12 hours ago she started having intermittent episodes of chest pressure that would last for a relatively short period of time, resolving when she ever she would rest, getting them whenever she would walk or get around. No leg pain or swelling. Nothing pleuritic. No palpitations or lightheadedness, near-syncope or syncope. States he has a history of heart disease but cannot member what kind, she appears to have some valvular disorders in her EMR with a history of some palpitations. She denies any contact with ill persons that she knows of recently. No fevers or chills but has felt malaised with some myalgias. [facility] Medical History Anxiety Asthma Bicuspid aortic valve Bilateral carotid artery stenosis without cerebral infarction Bipolar disorder COPD (chronic obstructive pulmonary disease) Dyslipidemia Essential hypertension GERD (gastroesophageal reflux disease) Hemorrhoid Non-rheumatic aortic sclerosis Non-rheumatic aortic stenosis Nonrheumatic aortic (valve) insufficiency Personal history of colonic polyps Home Medications atorvastatin 10 mg tablet (Lipitor) 10 mg PO QDAY CHOLESTEROL 04/03/18 [History Last Taken 05/20/19 03:30] omeprazole 40 mg capsule,delayed release 40 mg PO BID GERD 04/03/18 [History Last Taken 05/20/19 03:30] tiotropium bromide 2.5 mcg/actuation mist for inhalation (Spiriva Respimat) 2 puff inhalation QDAY COPD 04/03/18 [History Last Taken 05/20/19 03:30] albuterol sulfate 90 mcg/actuation aerosol inhaler 2 puff inhalation Q6H PRN Sob &/Or Wheezing 04/09/19 [History Last Taken 05/20/19 03:30] fluticasone furoate 200 mcg-vilanterol 25 mcg/dose inhalation powder 1 inh inhalation DAILY COPD 04/09/19 [History Last Taken 05/20/19 03:30] gabapentin 300 mg capsule 300 mg PO .COMPLEX PAIN 04/09/19 [History Last Taken 05/20/19 03:30] lisinopril 40 mg tablet 40 mg PO DAILY BP 04/09/19 [History Last Taken 05/20/19 03:30] metoprolol tartrate 50 mg tablet 50 mg PO BID BP 04/09/19 [History Last Taken Unknown] olanzapine 7.5 mg tablet 7.5 mg PO QHS BIPOLAR 04/15/19 [History Last Taken Unknown] hydrochlorothiazide 12.5 mg capsule 12.5 mg PO DAILY BP 05/15/19 [History Last Taken Unknown] budesonide 0.5 mg/2 mL suspension for nebulization 0.5 mg (2 mL) inhalation Q12H.RT 05/24/19 [Rx Last Taken Unknown] ibuprofen 400 mg tablet 400 mg PO Q4H PRN PRN Pain Score 1-3/10 05/24/19 [Rx Last Taken Unknown] omega-3 fatty acids 1,000 mg capsule 1,000 mg PO BID 07/08/21 [History Last Taken Unknown] furosemide 20 mg tablet 20 mg PO DAILY PRN edema #30 tabs 01/07/22 [Rx Last Taken Unknown] doxycycline monohydrate 100 mg capsule 100 mg PO BID #14 CAPSULES 04/08/22 [Rx Last Taken Unknown] prednisone 20 mg tablet 40 mg PO DAILY #10 TABLETS 04/08/22 [Rx Last Taken Unknown] Allergy/AdvReac Type Severity Reaction Status Date / Time amlodipine [From Norvasc] Allergy Intermediate Swelling Verified 07/08/21 08:26 fluoxetine [From Prozac] Allergy Intermediate mental Verified 07/08/21 08:26 status change Family History Mother Diabetes Heart disease Hypertension CHF (congestive heart failure) Father Heart disease Diabetes Hypertension Ulcer CHF (congestive heart failure) Brother Kidney disease Sister Cancer Surgical History History of colonoscopy (~2014) History of fracture of clavicle History of kidney donation History of shoulder surgery History of tubal ligation Social History Smoking Status: Former smoker how long ago did patient quit smokin years ago alcohol intake: current alcohol intake frequency: holidays/special occasions only Alcohol type: wine substance use type: does not use caffeine: Yes Type: carbonated beverages Number of servings: 1, coffee Number of servings: 2 and tea Number of servings: 2 ROS ROS ED Constitutional Constitutional ED: Reports body ache(s) and malaise; Denies chills or fever(s) Eyes Eyes: Denies change in vision or diplopia ENT ENT ED: Denies rhinorrhea or sore throat Cardiovascular Cardiovascular: Reports chest pain; Denies orthopnea or palpitations Respiratory/Chest Respiratory/Chest: Reports cough, dyspnea, sputum and wheezing; Denies orthopnea Gastrointestinal Gastrointestinal: Denies abdominal pain, diarrhea, nausea or vomiting Genitourinary Genitourinary ED: Denies dysuria or hematuria Musculoskeletal Musculoskeletal: Reports myalgias; Denies back pain or neck pain Integumentary Denies abscess or rash Neurologic Neurologic: Denies headache(s), paresthesias or weakness Psychiatric Psychiatric: Denies anxiety or suicidal thoughts EXAM Physical Exam Const Vital Signs: 04/08/22 16:53 04/08/22 16:56 04/08/22 17:07 Temperature 98.3 F Temperature Source Oral Pulse Rate 64 Pulse Rate [Lying] Pulse Rate [Sitting (for 1 minute prior to obtaining)] Pulse Rate [Standing (for 1 minute prior to obtaining)] Respiratory Rate 17 Respiratory Effort Normal Blood Pressure 170/93 H Blood Pressure [Lying] Blood Pressure [Sitting (for 1 minute prior to obtaining)] Blood Pressure [Standing (for 1 minute prior to obtaining)] Blood Pressure Mean 118 Blood Pressure Mean [Lying] Blood Pressure Mean [Sitting (for 1 minute prior to obtaining)] Blood Pressure Mean [Standing (for 1 minute prior to obtaining)] Pulse Ox 98 Oxygen Delivery Method Room Air 04/08/22 17:27 04/08/22 18:54 04/08/22 20:30 Temperature Temperature Source Pulse Rate 65 Pulse Rate [Lying] Pulse Rate [Sitting (for 1 minute prior to obtaining)] Pulse Rate [Standing (for 1 minute prior to obtaining)] Respiratory Rate 16 19 H Respiratory Effort Blood Pressure 122/106 H 196/76 H Blood Pressure [Lying] Blood Pressure [Sitting (for 1 minute prior to obtaining)] Blood Pressure [Standing (for 1 minute prior to obtaining)] Blood Pressure Mean 111 116 Blood Pressure Mean [Lying] Blood Pressure Mean [Sitting (for 1 minute prior to obtaining)] Blood Pressure Mean [Standing (for 1 minute prior to obtaining)] Pulse Ox 93 98 96 Oxygen Delivery Method Room Air Room Air Room Air 04/08/22 21:42 Temperature Temperature Source Pulse Rate Pulse Rate [Lying] 65 Pulse Rate [Sitting (for 1 minute prior to obtaining)] 69 Pulse Rate [Standing (for 1 minute prior to obtaining)] 75 Respiratory Rate Respiratory Effort Blood Pressure Blood Pressure [Lying] 178/74 H Blood Pressure [Sitting (for 1 minute prior to obtaining)] 193/80 H Blood Pressure [Standing (for 1 minute prior to obtaining)] 164/91 H Blood Pressure Mean Blood Pressure Mean [Lying] 108 Blood Pressure Mean [Sitting (for 1 minute prior to obtaining)] 117 Blood Pressure Mean [Standing (for 1 minute prior to obtaining)] 115 Pulse Ox Oxygen Delivery Method Positive well nourished, well developed and obese General Appearance ED: well developed and NAD Nutritional Appearance: obese HEENT Reports moist mucous membranes normocephalic and atraumatic Eyes PERRL and EOMs intact bilaterally Neck full ROM, supple and no JVD Resp normal respiratory effort, no retractions, no use of accessory muscles and clear to auscultation bilaterally Effort and Inspection: able to speak in complete sentences Cardio regular rate and regular rhythm Cardio Narrative: Systolic ejection murmur 2/6 right second intercostal space most prominent GI non-tender and non-distended Auscultation: normoactive bowel sounds Palpation: soft Back/Spine no CVA tenderness General Back: other FROM Extremity normal to inspection, no calf tenderness and no pedal edema General Extremety ED: Negative for edema, pulses abnormal or tenderness General Extremity: Negative for edema or pulses abnormal Neuro oriented x3, CN's II-XII intact bilaterally and no sensory deficits noted Sensorium / Orientation: awake and alert Motor Exam: strength 5/5 throughout Psych mental status grossly normal Skin no rashes or lesions noted and no wounds Heart Score History: Moderately Suspicious ECG: Normal Age: >/= 65 years Risk Factors: 1 or 2 Risk Factors Troponin: </= Normal Limit Score: 4 MDM MDM MDM Narrative Medical decision making narrative: Enzymes are negative. Chest x-ray 1 view on my interpretation negative for any acute. Radiology in agreement. Her EKG and troponin are unremarkable, I am doing a 2-hour delta since her symptoms of been intermittent, she prefers to go home. She had a negative stress test in 2018, as well as earlier this year. It was done and is negative (initial troponin 11, second is 12), she is fine with going home. We will treat her with steroids and close outpatient follow-up for her chest discomfort. Her COVID is negative. She was concerned about getting dizzy sometimes when she stood up, so we did orthostatics. They are negative, she did not get dizzy, but her blood pressure has been in the 190s on multiple checks here. She has not taken her nighttime blood pressure medication yet, which is past due. She does not have any ischemic EKG changes or other signs that are dangerous of this, and she is currently having no chest discomfort. I am going to give her a clonidine 0.1 mg prior to discharge, and she can go home and take her usual which appears to be metoprolol tartrate 50 mg. She is comfortable with that plan. Lab Data Attestation: I reviewed the patient's lab results. Labs: Laboratory Results - last 24 hr 04/08/22 04/08/22 04/08/22 17:03 17:03 17:03 WBC 6.1 RBC 4.73 Hgb 13.2 Hct 41.1 MCV 86.9 MCH 27.9 MCHC 32.1 RDW Std Deviation 43.7 RDW Coeff of Ryan 13.8 Plt Count 275 MPV 9.4 Immature Gran % (Auto) 0.200 Neut % (Auto) 46.3 L Lymph % (Auto) 42.2 H Florence % (Auto) 9.5 Eos % (Auto) 1.3 Baso % (Auto) 0.5 Absolute Neuts (auto) 2.8 Absolute Lymphs (auto) 2.57 Nucleated RBC % 0 Sodium 143 Potassium 3.7 Chloride 106 Carbon Dioxide 32.0 Anion Gap 5 BUN 8 Creatinine 0.92 Estim Creat Clear Calc 54.05 Est GFR (MDRD) Af Amer 80 Est GFR (MDRD) Non-Af 66 BUN/Creatinine Ratio 8.7 L Glucose 88 Calcium 9.3 Troponin I High Sens 11 B-Natriuretic Peptide 48.7 04/08/22 20:27 WBC RBC Hgb Hct MCV MCH MCHC RDW Std Deviation RDW Coeff of Ryan Plt Count MPV Immature Gran % (Auto) Neut % (Auto) Lymph % (Auto) Florence % (Auto) Eos % (Auto) Baso % (Auto) Absolute Neuts (auto) Absolute Lymphs (auto) Nucleated RBC % Sodium Potassium Chloride Carbon Dioxide Anion Gap BUN Creatinine Estim Creat Clear Calc Est GFR (MDRD) Af Amer Est GFR (MDRD) Non-Af BUN/Creatinine Ratio Glucose Calcium Troponin I High Sens 12 B-Natriuretic Peptide Radiography Diagnostic Testing: Clinical Impression(s) from Imaging Studies Chest X-Ray 04/08/22 17:20 IMPRESSION: There are no acute findings. Electronically Signed: Alberto Hunt MD at 18:01 EDT , Rhythm Strip Rhythm Strip: Sinus Rhythm Rate: 65 Ectopy: None EKG Initial EKG: Attestation: I personally reviewed and interpreted this EKG as follows: Interpretation: Sinus Rhythm and No Acute Injury Pattern Comments: No ST segment deviations, no inverted T waves Prior EKG tracings: available for review Prior: Unchanged Discharge Plan Triage Chief Complaint: Chest Pain ED Provider: Mars Ordoñez Dx/Rx/DC Orders Clinical Impression: Intermittent chest pain, COPD exacerbation, Accelerated hypertension Instructions: ED COPD Flare, ED Chest Pain, Uncertain Cause Prescriptions: New prednisone 20 mg tablet 40 mg PO DAILY Qty: 10 0RF doxycycline monohydrate 100 mg capsule 100 mg PO BID Qty: 14 0RF No Action atorvastatin [Lipitor] 10 mg tablet 10 mg PO QDAY tiotropium bromide [Spiriva Respimat] 2.5 mcg/actuation mist 2 puff INHALATION QDAY omeprazole 40 mg capsule,delayed release(DR/EC) 40 mg PO BID olanzapine 7.5 mg tablet 7.5 mg PO QHS metoprolol tartrate 50 mg tablet 50 mg PO BID fluticasone furoate-vilanterol 200-25 mcg/dose blister with device 1 inh INHALATION DAILY gabapentin 300 mg capsule 300 mg PO .COMPLEX Rx Instructions: 300 mg PO QAM and 900 mg PO QPM; lisinopril 40 mg tablet 40 mg PO DAILY omega-3 fatty acids 1,000 mg capsule 1,000 mg PO BID albuterol sulfate 90 mcg/actuation HFA aerosol inhaler 2 puff inhalation Q6H PRN (Reason: Sob &/Or Wheezing) hydrochlorothiazide 12.5 MG capsule 12.5 mg PO DAILY Hold Instructions: dizziness ibuprofen 400 MG tablet 400 mg PO Q4H PRN PRN (Reason: Pain Score 1-3/10) 0RF budesonide 0.5 MG/2 ML suspension for nebulization 0.5 mg inhalation Q12H.RT 0RF furosemide 20 mg tablet 20 mg PO DAILY PRN (Reason: edema) Qty: 30 3RF Primary Care Provider: Valentin Paige Referrals: Valentin Paige MD [Primary Care Provider] - (after the weekend -- call for appt) Disposition Disposition: Home, Self Care
[2022-04-08 18:12] LABS: Anion Gap 5 (5-15); BUN 8 mg/dL (7-18); BUN/Creat Ratio 8.7 RATIO (10-20); Calcium,Total 9.3 mg/dL (8.5-10.1); Chloride 106 mmol/L (98-107); Creatinine, Serum 0.92 mg/dL (0.55-1.02); EST Glomerular Filtration Rate 66 mL/min (>60); Est Glom Filt Rate - Afr Amer 80 mL/min (>60); Estimated Creatinine Clearance 54.05 ml/min; Glucose 88 mg/dL (74-106); Potassium 3.7 mmol/L (3.5-5.1); Sodium Level 143 mmol/L (136-145); Troponin-I HS 11 pg/mL (3.0-54.0)
[2022-04-08 18:25] LABS: BNP,B-Type NATRIURETIC PEPTIDE 48.7 pg/mL (0-100)
[2022-04-08] MEDS: MethylPREDNISolone 125 MG/2 ML Vial IV (20:26)
[2022-04-08 20:53] LABS: Troponin-I HS 12 pg/mL (3.0-54.0)
[2022-04-08] MEDS: cloNIDine HCl 0.1 MG Tablet PO (22:03)
== END 2022-04-08 23:01 | disposition home or self-care (01) ==
PROVIDERS: Emergency Medicine; Emergency Provider Emergency Medicine; PCP Family Medicine; Visit Provider Emergency Medicine
DX: J44.1 Chronic obstructive pulmonary disease with (acute) exacerbation (principal); F31.9 Bipolar disorder, unspecified; Z87.891 Personal history of nicotine dependence; I10 Essential (primary) hypertension; E78.5 Hyperlipidemia, unspecified; K21.9 Gastro-esophageal reflux disease without esophagitis; I35.0 Nonrheumatic aortic (valve) stenosis; Z86.010 Personal history of colon polyps; Q23.1 Congenital insufficiency of aortic valve; F41.9 Anxiety disorder, unspecified; Z79.899 Other long term (current) drug therapy; E66.9 Obesity, unspecified; R06.00 Dyspnea, unspecified; Z68.32 Body mass index [BMI] 32.0-32.9, adult
CPT/HCPCS: 71045; 80048; 83880; 84484; 85025; 87428; 93005; 96361; 96374; 99285; J7030; A4216

== ENCOUNTER 2022-04-15 14:38 | Emergency (ER) | payer MEDICARE, MEDICAID, SELFPAY ==
[2022-04-15] VITALS (12 sets, daily range): BP systolic 155–242; BP diastolic 70–160; PULSE 60–82; RESP 18–25; TEMP 37.1–37.3; O2SAT 87–96; BMI 31.7
--- NOTE | 2022-04-15 15:23 | EKG12_ITS ---
Test Reason : CP Blood Pressure : / mmHG Vent. Rate : 066 BPM Atrial Rate : 066 BPM P-R Int : 134 ms QRS Dur : 080 ms QT Int : 402 ms P-R-T Axes : 041 -02 035 degrees QTc Int : 421 ms Normal sinus rhythm Moderate voltage criteria for LVH, may be normal variant ( R in aVL , Sokolow-Soliz ) Borderline ECG Confirmed by COURTNEY VÁZQUEZ, MAR ([id number]), sound editor RICK DUNNE ([id number]) on 04/18/2022 9:40:25 AM Referred By: QUENTIN Confirmed By:MARLON VALDEZ MD
--- NOTE | 2022-04-15 15:40 | RAD_ITS ---
STUDY: X-RAY CHEST REASON FOR EXAM: Female, 62 years old. Dyspnea on exertion, history of COPD TECHNIQUE: PA and lateral COMPARISON: 04/08/2022. FINDINGS: The lungs are clear and expanded. There is no demonstrated pleural abnormality. Normal size heart. Normal mediastinum and sandrita. Normal visualized pulmonary arteries. Mildly calcified aortic arch and descending thoracic aorta. Normal visualized thoracic spine. Normal visualized ribs, and shoulders. Status post open reduction internal fixation right clavicular fracture There is no demonstrated abnormality of the visualized soft tissue structures of the upper abdomen. RAD/Chest PA and Lateral IMPRESSION: No acute cardiopulmonary pathology Electronically Signed: Valentin Patiño MD at 16:54 EDT ,
[2022-04-15 15:49] LABS: Absolute Lymphocyte Count 1.62 X10^3/uL (0.83-4.51); Absolute Neutrophil Count 5.9 X10^3/uL (2.0-7.7); Basophil# 0.03 X10^3/uL; Basophil% 0.4 % (0-1); Eosinophil# 0.01 X10^3/uL; Eosinophils% 0.1 % (0-5); Hematocrit 41.5 % (37-47); Lymphocyte # 1.62 X10^3/ul (0.83-4.51); Lymphocyte % 20.6 % (19-41); Mean Corp Hgb Conc 31.3 g/dL (32-36); Mean Corpuscular Hgb 27.7 pg (27.0-32.0); Mean Corpuscular Volume 88.3 fL (81-99); Mean Platelet Vol. 9.9 fl (6.2-12.0); Monocyte# 0.28 X10^3/uL; Monocyte% 3.6 % (0-10); NRBC Flagged by Analyzer 0 % (0-5); Neutrophil # 5.89 X10^3/uL (2.7-7.7); Neutrophil % 74.7 % (47-70); Platelet Count 303 K/mm3 (150-450); RBC Distribution Width CV 13.9 % (11.6-14.6); RBC Distribution Width SD 45.2 fl (35.1-43.9); White Blood Count 7.9 K/mm3 (4.4-11.0)
[2022-04-15 16:01] LABS: Anion Gap 7 (5-15); BUN 9 mg/dL (7-18); BUN/Creat Ratio 10.1 RATIO (10-20); Calcium,Total 9.6 mg/dL (8.5-10.1); Chloride 109 mmol/L (98-107); Creatinine, Serum 0.89 mg/dL (0.55-1.02); EST Glomerular Filtration Rate 68 mL/min (>60); Est Glom Filt Rate - Afr Amer 83 mL/min (>60); Estimated Creatinine Clearance 55.87 ml/min; Glucose 120 mg/dL (74-106); Sodium Level 145 mmol/L (136-145)
--- NOTE | 2022-04-15 17:45 | EDS_ITS ---
HPI History of Present Illness Chief Complaint: Weakness Informant: patient Onset/Context/Timing Onset: Days (If not longer) Context: Gradual Onset Quality: Generalized weakness, dyspnea on exertion Location: Not applicable and respiratory Current Severity: Mild Maximum Severity: Moderate Worsened by: Dyspnea on exertion and reported hypoxia Relieved by: Rest Associated Symptoms Associated Symptoms: Chronic cough Narrative Narrative: Patient is a 62-year-old woman with history of COPD, hypertension, nonrheumatic valvular heart disease, essential hypertension tension and dyslipidemia who pres ents with dyspnea on exertion. She was sent in for oxygen therapy. She also complains of generalized weakness. She denies fever, chills night sweats. She denies headache, visual, ocular auditory symptoms. Denies trouble speech or swallowing. She denies chest pain or pressure. She denies nausea, vomiting. She had diarrhea this morning x2. There is no blood or mucus. She denies urologic symptoms. She denies paresthesia, anesthesia medics. She denies problems with coordination or balance. She denies difficulty using her arms or legs. Apparently she desaturated when she walked. PCP called prior to arrival. Prior similar symptoms: Yes Recent Illness/Hospitalization: No [facility] Medical History Anxiety Asthma Bicuspid aortic valve Bilateral carotid artery stenosis without cerebral infarction Bipolar disorder COPD (chronic obstructive pulmonary disease) Dyslipidemia Essential hypertension GERD (gastroesophageal reflux disease) Hemorrhoid Non-rheumatic aortic sclerosis Non-rheumatic aortic stenosis Nonrheumatic aortic (valve) insufficiency Personal history of colonic polyps Home Medications atorvastatin 10 mg tablet (Lipitor) 10 mg PO QDAY CHOLESTEROL 04/03/18 [History Last Taken 05/20/19 03:30] omeprazole 40 mg capsule,delayed release 40 mg PO BID GERD 04/03/18 [History Last Taken 05/20/19 03:30] tiotropium bromide 2.5 mcg/actuation mist for inhalation (Spiriva Respimat) 2 puff inhalation QDAY COPD 04/03/18 [History Last Taken 05/20/19 03:30] albuterol sulfate 90 mcg/actuation aerosol inhaler 2 puff inhalation Q6H PRN Sob &/Or Wheezing 04/09/19 [History Last Taken 05/20/19 03:30] fluticasone furoate 200 mcg-vilanterol 25 mcg/dose inhalation powder 1 inh inhalation DAILY COPD 04/09/19 [History Last Taken 05/20/19 03:30] lisinopril 40 mg tablet 40 mg PO DAILY BP 04/09/19 [History Last Taken 05/20/19 03:30] metoprolol tartrate 50 mg tablet 50 mg PO BID BP 04/09/19 [History Last Taken Unknown] olanzapine 7.5 mg tablet 7.5 mg PO QHS BIPOLAR 04/15/19 [History Last Taken Unknown] hydrochlorothiazide 12.5 mg capsule 12.5 mg PO DAILY BP 05/15/19 [History Last Taken Unknown] budesonide 0.5 mg/2 mL suspension for nebulization 0.5 mg (2 mL) inhalation Q12H.RT 05/24/19 [Rx Last Taken Unknown] ibuprofen 400 mg tablet 400 mg PO Q4H PRN PRN Pain Score 1-10/2805/24/19 [Rx Last Taken Unknown] omega-3 fatty acids 1,000 mg capsule 1,000 mg PO BID 07/08/21 [History Last Taken Unknown] doxycycline monohydrate 100 mg capsule 100 mg PO BID #14 CAPSULES 04/08/22 [Rx Last Taken Unknown] prednisone 20 mg tablet 40 mg PO DAILY #10 TABLETS 04/08/22 [Rx Last Taken Unknown] Allergy/AdvReac Type Severity Reaction Status Date / Time amlodipine [From Norvasc] Allergy Intermediate Swelling Verified 07/08/21 08:26 fluoxetine [From Prozac] Allergy Intermediate mental Verified 07/08/21 08:26 status change Family History Mother Diabetes Heart disease Hypertension CHF (congestive heart failure) Father Heart disease Diabetes Hypertension Ulcer CHF (congestive heart failure) Brother Kidney disease Sister Cancer Surgical History History of colonoscopy (~2014) History of fracture of clavicle History of kidney donation History of shoulder surgery History of tubal ligation Social History Smoking Status: Former smoker how long ago did patient quit smokin years ago alcohol intake: current alcohol intake frequency: holidays/special occasions only Alcohol type: wine substance use type: does not use caffeine: Yes Type: carbonated beverages Number of servings: 1, coffee Number of servings: 2 and tea Number of servings: 2 ROS ROS ED Constitutional Constitutional ED: Denies chills, fever(s), subjective, sweats or weight loss Eyes Eyes: Denies blurry vision, change in vision or diplopia ENT ENT ED: Denies ear pain, rhinorrhea or sore throat Cardiovascular Cardiovascular: Denies chest pain, orthopnea, palpitations, paroxysmal nocturnal dyspnea or racing heartbeat Respiratory/Chest Respiratory/Chest: Reports cough, dyspnea and dyspnea on exertion; Denies orthopnea or paroxysmal nocturnal dyspnea Gastrointestinal Gastrointestinal: Reports diarrhea; Denies abdominal pain, melena, nausea or vomiting Genitourinary Genitourinary ED: Denies dysuria, hematuria or urinary frequency Musculoskeletal Musculoskeletal: Denies arthralgias, back pain, myalgias or neck pain Integumentary Denies abscess, Abrasions or rash Neurologic Neurologic: Reports headache(s) and weakness; Denies paresthesias Psychiatric Psychiatric: Denies anxiety or depression Endocrine Endocrinology: Denies cold intolerance Hematologic/Lymphatic Hematologic/Lymphatic: Reports systems reviewed and no addt'l complaints, except as documented Allergic/Immunologic Allergic/Immunologic ED: Denies mouth swelling, tongue swelling or urticaria EXAM Physical Exam Const Vital Signs: 04/15/22 14:39 04/15/22 14:44 04/15/22 14:51 Temperature 99.1 F 99.1 F Temperature Source Oral Oral Pulse Rate 67 67 Respiratory Rate 25 H 22 H Respiratory Effort Normal Non-Labored Respiratory Pattern Blood Pressure 169/132 H 169/132 H Blood Pressure Mean 144 144 Pulse Ox 94 94 Oxygen Delivery Method Room Air Room Air 04/15/22 14:51 04/15/22 15:54 04/15/22 16:46 Temperature 98.8 F 98.9 F Temperature Source Oral Oral Pulse Rate 77 66 Respiratory Rate 25 H 20 H Respiratory Effort Normal Non-Labored Respiratory Pattern Normal Blood Pressure 188/85 H 186/78 H Blood Pressure Mean 119 114 Pulse Ox 92 93 Oxygen Delivery Method Room Air Room Air 04/15/22 16:46 04/15/22 17:25 04/15/22 18:16 Temperature 98.9 F 98.9 F 99.1 F Temperature Source Oral Oral Oral Pulse Rate 62 60 66 Respiratory Rate 21 H 21 H 24 H Respiratory Effort Respiratory Pattern Blood Pressure 186/78 H 191/70 H 193/80 H Blood Pressure Mean 114 110 117 Pulse Ox 94 94 93 Oxygen Delivery Method Room Air Room Air Room Air 04/15/22 18:16 04/15/22 19:21 Temperature 99.1 F Temperature Source Oral Pulse Rate 66 Respiratory Rate 22 H Respiratory Effort Respiratory Pattern Blood Pressure 193/80 H 205/92 H Blood Pressure Mean 117 129 Pulse Ox 94 Oxygen Delivery Method Room Air Positive well nourished, well developed, obese and unkempt General Appearance ED: unkempt, well developed and NAD; Negative for cyanotic, diaphoretic or pallor Nutritional Appearance: obese HEENT Reports moist mucous membranes HEENT Narrative: Ears normal. TMs normal. Nares patent. Uvula midline. No deviation of tongue or protrusion. No erythema to the posterior pharynx. No evidence of angioedema. Eyes PERRL and EOMs intact bilaterally General Eye ED: Negative for pale conjunctiva or scleral icterus Neck no lymphadenopathy, supple and no JVD Chest Wall inspection of chest normal and palpation of chest normal Resp normal respiratory effort and clear to auscultation bilaterally Auscultation: diminished lung sounds bilateral Cardio regular rate, regular rhythm, S1 normal heart sound, S2 normal heart sound and no murmurs GI normal to inspection, nondistended, normoactive bowel sounds, non-tender, non- distended and no masses; Negative for hepatosplenomegaly Auscultation: hypoactive bowel sounds Palpation: soft Back/Spine no CVA tenderness Cervical Spine: Negative for cervical spine tenderness Thoracic Spine / Upper Back: Negative for thoracic spinal tenderness Lumbar Spine / Lower Back: Negative for lumbar spinal tenderness Extremity normal to inspection General Extremety ED: Negative for edema or tenderness General Extremity: Negative for edema Neuro oriented x3, CN's II-XII intact bilaterally and no sensory deficits noted Sensorium / Orientation: alert Motor Exam: strength 5/5 throughout Psych Appearance: unkempt Skin no rashes or lesions noted, no wounds and skin turgor normal General Skin Exam: Negative for jaundice or pallor MDM MDM MDM Narrative Medical decision making narrative: In light of patient consolation symptoms will rule out pneumonia, COPD, congestive heart failure, and perform amatory pulse ox. Patient did desaturate. Patient will qualify for outpatient oxygen. Case management, Jazmín is helping with paperwork to facilitate discharge to home with oxygen since she desaturated 86% with walking. Patient has no end organ injury. Therefore blood pressure will be lowered slowly. She is to follow-up with her doctor with regards to her hypertension. Lab Data Attestation: I reviewed the patient's lab results. Lab results narrative: CBC, basic metabolic panel and UA are unremarkable. Labs: Laboratory Results - last 24 hr 04/15/22 04/15/22 04/15/22 14:30 14:30 18:29 WBC 7.9 RBC 4.70 Hgb 13.0 Hct 41.5 MCV 88.3 MCH 27.7 MCHC 31.3 L RDW Std Deviation 45.2 H RDW Coeff of Ryan 13.9 Plt Count 303 MPV 9.9 Immature Gran % (Auto) 0.600 Neut % (Auto) 74.7 H Lymph % (Auto) 20.6 [place] % (Auto) 3.6 Eos % (Auto) 0.1 Baso % (Auto) 0.4 Absolute Neuts (auto) 5.9 Absolute Lymphs (auto) 1.62 Nucleated RBC % 0 Sodium 145 Potassium 4.0 Chloride 109 H Carbon Dioxide 29.0 Anion Gap 7 BUN 9 Creatinine 0.89 Estim Creat Clear Calc 55.87 Est GFR (MDRD) Af Amer 83 Est GFR (MDRD) Non-Af 68 BUN/Creatinine Ratio 10.1 Glucose 120 H Calcium 9.6 Urine Color Straw Urine Clarity Clear Urine pH 6.5 Ur Specific [place] 1.005 Urine Protein Negative Urine Glucose (UA) Normal Urine Ketones Negative Urine Occult Blood Negative Urine Nitrite Negative Urine Bilirubin Negative Urine Urobilinogen Normal Ur Leukocyte Esterase Negative Urine RBC 0 SEEN Urine WBC 0 SEEN Ur Squamous Epith Cells 0 SEEN Urine Bacteria 0 SEEN Urine Mucus 0 SEEN Radiography Chest X-Ray - ED: Read by ED Physician (Chest x-ray reveals no acute process. There is chronic changes noted. Cardiac silhouette and size unremarkable. Perihilar region unremarkable. Osseous trucks unremarkable. Independently reviewed by me at [id number].) Diagnostic Testing: Clinical Impression(s) from Imaging Studies Chest X-Ray 04/15/22 15:40 IMPRESSION: No acute cardiopulmonary pathology Electronically Signed: Valentin Patiño MD at 16:54 EDT Reading Location ID and State: [facility]– [place] / [place] , Service support , EKG Initial EKG: Attestation: I personally reviewed and interpreted this EKG as follows: Interpretation: Sinus Rhythm (Rate is 96. VT interval 216 ms per cures duration 110 ms. QT durations are 74 ms. [place] the left. There is evidence of LVH. 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.) Discharge Plan Triage Chief Complaint: Weakness Other Complaint: Shortness of Breath ED Provider: Marlo Knapp Dx/Rx/DC Orders Clinical Impression: Hypoxia, Non-rheumatic aortic stenosis, History of COPD, Accelerated essential hypertension Instructions: Diagnosing COPD, ED Hypertension, Established Prescriptions: No Action atorvastatin [Lipitor] 10 mg tablet 10 mg PO QDAY tiotropium bromide [Spiriva Respimat] 2.5 mcg/actuation mist 2 puff INHALATION QDAY omeprazole 40 mg capsule,delayed release(DR/EC) 40 mg PO BID olanzapine 7.5 mg tablet 7.5 mg PO QHS metoprolol tartrate 50 mg tablet 50 mg PO BID fluticasone furoate-vilanterol 200-25 mcg/dose blister with device 1 inh INHALATION DAILY lisinopril 40 mg tablet 40 mg PO DAILY omega-3 fatty acids 1,000 mg capsule 1,000 mg PO BID albuterol sulfate 90 mcg/actuation HFA aerosol inhaler 2 puff inhalation Q6H PRN (Reason: Sob &/Or Wheezing) hydrochlorothiazide 12.5 MG capsule 12.5 mg PO DAILY Hold Instructions: dizziness ibuprofen 400 MG tablet 400 mg PO Q4H PRN PRN (Reason: Pain Score 1-3/10) 0RF budesonide 0.5 MG/2 ML suspension for nebulization 0.5 mg inhalation Q12H.RT 0RF prednisone 20 mg tablet 40 mg PO DAILY Qty: 10 0RF doxycycline monohydrate 100 mg capsule 100 mg PO BID Qty: 14 0RF Primary Care Provider: Valentin Paige Referrals: Valentin Paige MD [Primary Care Provider] - 5-7 Days Activity Restrictions/Additional Instructions: 1. You will need to follow-up with Dr. Paige for blood pressure check in 1 to 2 weeks. 2. You will need to follow-up with physician assistant Jones for oxygen therapy at home. Disposition Disposition: Home, Self Care
[2022-04-15 18:33] LABS: Bacteria 0 SEEN /hpf (None Seen); Mucous, Urine 0 SEEN /hpf (<or=2+); Red Blood Cells-Urine 0 SEEN /hpf (0-5); Squamous Epithelial Cells - UA 0 SEEN /hpf (5-10); White Blood Cells 0 SEEN /hpf (0-5)
[2022-04-15 18:34] LABS: Color, Urine Straw (Yellow); Glucose, Dipstick Normal (Normal); Ketone-Dipstick Negative (Negative); Leukocyte Esterase-Dipstick Negative /ul (Negative); Nitrite-Dipstick Negative (Negative); Occult Blood-Urine Negative /ul (Negative); Protein-Dipstick Negative (Negative); Specific Gravity, Urine 1.005 (1.002-1.030); Urine Bilirubin Dipstick Negative (Negative); Urine Clarity Clear (Clear); Urine Urobilinogen Normal (Normal); Urine pH 6.5 (5.0 - 8.0)
--- NOTE | 2022-04-15 19:58 | CM.ED ---
Social Work Note Reason for Referral: MD Knapp states pt needs home Oxygen. SW entered Home Qualification test. SW updated RN that test needs completed for pt to qualify for home Oxygen. SW in to speak with pt. SW spoke with pt about Home Oxygen. Pt agreeable to using [facility]. SW explained that if pt qualifies, pt can get tank from ED and then can discharge home. SW informed pt that once she is home she will need to call number on [facility]'s tank and let them know pt is home. Pt states understanding. SW to complete Oxygen script. Jazmín Brennan [employer], APPLIANCE ADJUSTER
[2022-04-15] MEDS: Enalaprilat 1.25 MG/ML Vial 0.625 MG IV (20:07)
[2022-04-15] MEDS: cloNIDine HCl 0.2 MG Tablet PO (20:45)
--- NOTE | 2022-04-15 22:37 | CM.ED ---
Addendum entered by Jazmín Brennan 04/15/22 22:43: Faxed confirmation received that [facility] received fax. Original Note: Social Work Note Home Oxygen qualification test completed. [place] [facility] [place] [facility] 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
== END 2022-04-15 23:00 | disposition home or self-care (01) ==
PROVIDERS: Emergency Provider Emergency Medicine; PCP Family Medicine; Visit Provider Emergency Medicine
DX: R09.02 Hypoxemia (principal); J44.9 Chronic obstructive pulmonary disease, unspecified; F31.9 Bipolar disorder, unspecified; I10 Essential (primary) hypertension; E78.5 Hyperlipidemia, unspecified; F41.9 Anxiety disorder, unspecified; K21.9 Gastro-esophageal reflux disease without esophagitis; I35.0 Nonrheumatic aortic (valve) stenosis; I35.1 Nonrheumatic aortic (valve) insufficiency; Q23.1 Congenital insufficiency of aortic valve; Z79.899 Other long term (current) drug therapy; Z87.891 Personal history of nicotine dependence; E66.9 Obesity, unspecified; Z68.31 Body mass index [BMI] 31.0-31.9, adult
CPT/HCPCS: 71046; 80048; 81001; 85025; 87086; 93005; 96374; 99285; A4216

== ENCOUNTER 2023-12-19 14:19 | Inpatient (IN) | payer MEDICARE, SELFPAY ==
[2023-12-19] VITALS (12 sets, daily range): BP systolic 121–145; BP diastolic 53–68; PULSE 62–87; RESP 16–27; TEMP 36.1–36.9; O2SAT 93–98; BMI 25.0; BMI 24.8
--- NOTE | 2023-12-19 14:54 | EKG12_ITS ---
Test Reason : SOB Blood Pressure : / mmHG Vent. Rate : 061 BPM Atrial Rate : 061 BPM P-R Int : 130 ms QRS Dur : 086 ms QT Int : 480 ms P-R-T Axes : 003 -05 -09 degrees QTc Int : 483 ms Normal sinus rhythm Minimal voltage criteria for LVH, may be normal variant ( R in aVL ) Borderline ECG Confirmed by LOLIS VÁZQUEZ, VIPUL ([id number]), subeditor RICK DUNNE ([id number]) on 12/21/2023 11:39:35 AM Referred By: Confirmed By:VIPUL DANIELLE MD
[2023-12-19] MEDS: Ipratropium/Albuterol Sulfate 3 ML AMPUL.NEB INHALATION (15:03)
[2023-12-19 15:11] LABS: Absolute Neutrophil Count 5.9 X10^3/uL (2.0-7.7); Basophil# 0.04 X10^3/uL; Basophil% 0.4 % (0-1); Eosinophil# 0.06 X10^3/uL; Eosinophils% 0.6 % (0-5); Hematocrit 38.2 % (37-47); Hemoglobin 13.3 g/dL (12.0-15.0); Lymphocyte % 27.5 % (19-41); Mean Corp Hgb Conc 34.8 g/dL (32-36); Mean Corpuscular Hgb 28.2 pg (27.0-32.0); Mean Corpuscular Volume 80.9 fL (81-99); Mean Platelet Vol. 8.7 fl (6.2-12.0); Monocyte# 1.05 X10^3/uL; Monocyte% 10.7 % (0-10); NRBC Flagged by Analyzer 0 % (0-5); Neutrophil % 60.1 % (47-70); Platelet Count 473 K/mm3 (150-450); RBC Distribution Width CV 13.1 % (11.6-14.6); RBC Distribution Width SD 38.5 fl (35.1-43.9); Red Blood Count 4.72 M/mm3 (4.2-5.4); White Blood Count 9.8 K/mm3 (4.4-11.0)
[2023-12-19 15:12] LABS: POSITIVE COUNT NO; POSITIVE DIFFERENTIAL NO; POSITIVE MORPHOLOGY NO
[2023-12-19] MEDS: Albuterol 2.5 MG/3 ML VIAL.NEB. INHALATION ×3 (15:13→18:39)
--- NOTE | 2023-12-19 15:40 | RAD_ITS ---
STUDY: X-RAY CHEST REASON FOR EXAM: Female, 63 years old. Cough, wheezing, history of COPD TECHNIQUE: PA and lateral COMPARISON: April 15, 2022 FINDINGS: The lungs are clear and expanded. Chronic pleural-parenchymal scarring in the right apex Normal size heart. Normal mediastinum and sandrita. Normal visualized pulmonary arteries. Normal visualized aortic arch and descending thoracic aorta. Normal visualized thoracic spine. Normal visualized ribs, left clavicle and shoulders. Postsurgical changes of the right shoulder Postsurgical changes of the upper abdomen. No significant change since prior study RAD/Chest PA and Lateral IMPRESSION: No acute cardiopulmonary pathology Electronically Signed: Valentin Patiño MD at 16:53 EDT ,
[2023-12-19 15:41] LABS: Anion Gap 7 (5-15); BUN 10 mg/dL (7-18); BUN/Creat Ratio 10.5 RATIO (10-20); Calcium,Total 9.6 mg/dL (8.5-10.1); Chloride 83 mmol/L (98-107); Creatinine, Serum 0.96 mg/dL (0.55-1.02); EST Glomerular Filtration Rate 62 mL/min (>60); Est Glom Filt Rate - Afr Amer 76 mL/min (>60); Estimated Creatinine Clearance 53.27 ml/min; Glucose 124 mg/dL (74-106); Potassium 2.6 mmol/L (3.5-5.1); Sodium Level 126 mmol/L (136-145); Troponin-I HS 10 pg/mL (3.0-54.0)
[2023-12-19 15:43] LABS: Lactic Acid 1.3 mmol/L (0.4-1.9)
--- NOTE | 2023-12-19 16:01 | EDS_ITS ---
HPI History of Present Illness Chief Complaint: Shortness of Breath Detail of Chief Complaint: Shortness of breath without oxygen Informant: patient Onset/Context/Timing Onset: Days Context: - (Unable to determine because patient and son are poor informant) Timing: Continuous Quality: Positive for Dyspnea on exertion Current Severity: Mild Maximum Severity: Severe Worsened by: Exertion, Coughing and - (Not wearing her oxygen) Relieved by: Nothing Associated Symptoms cough and rhinorrhea; Negative for post nasal drip, ear pain, fever, sore throat, subjective, chills or sweats Chest Pain: Positive for None Narrative Narrative: Patient is a 63-year-old woman. She is a former smoker. She has history of COPD. She has been on oxygen in the past. Has not been on oxygen recently. She has recently started to use her oxygen machine 2-1/2 days ago. When she went into see her doctor without oxygen her pulse ox is 83%. She denies fever, chills night sweats. Denies headache, visual, ocular auditory symptoms. She denies ear pain. She does endorse nasal congestion. She has a cough. She states unable to cough up the sputum. She does endorse wheezing, dyspnea with activity compared to normal. She denies orthopnea or PND. She was unaware that her legs are slightly swollen. She denies history of congestive heart failure. Will need to review old records since she is a poor informant. There was no call from the PCP even though her pulse ox was 83% on room air. PE Risk Factors: Negative for Cancer, OCP + Smoking + > 35, Prior DVT or PE, Recent immobilization, Recent surgery or Recent travel Prior similar symptoms: Yes Recent Illness/Hospitalization: No PFSH PFSH Medical History Anxiety Asthma Bicuspid aortic valve Bilateral carotid artery stenosis without cerebral infarction Bipolar disorder COPD (chronic obstructive pulmonary disease) Dyslipidemia Essential hypertension GERD (gastroesophageal reflux disease) Hemorrhoid Non-rheumatic aortic sclerosis Nonrheumatic aortic (valve) insufficiency Personal history of colonic polyps Home Medications atorvastatin 10 mg tablet (Lipitor) 10 mg PO QDAY CHOLESTEROL 04/03/18 [History Last Taken 12/19/23] omeprazole 40 mg capsule,delayed release 40 mg PO BID GERD 04/03/18 [History Last Taken 12/19/23] tiotropium bromide 2.5 mcg/actuation mist for inhalation (Spiriva Respimat) 2 puff inhalation QDAY COPD 04/03/18 [History Last Taken 12/19/23] albuterol sulfate 90 mcg/actuation aerosol inhaler 2 puff inhalation Q6H PRN Sob &/Or Wheezing 04/09/19 [History Last Taken 05/20/19 03:30] fluticasone furoate 200 mcg-vilanterol 25 mcg/dose inhalation powder 1 inh inhalation DAILY COPD 04/09/19 [History Last Taken 12/19/23] lisinopril 40 mg tablet 40 mg PO DAILY BP 04/09/19 [History Last Taken 12/19/23] metoprolol tartrate 50 mg tablet 50 mg PO BID BP 04/09/19 [History Last Taken 12/19/23] olanzapine 7.5 mg tablet 7.5 mg PO QHS BIPOLAR 04/15/19 [History Last Taken 12/19/23] budesonide 0.5 mg/2 mL suspension for nebulization 0.5 mg (2 mL) inhalation Q12H.RT 05/24/19 [Rx Last Taken 12/19/23] omega-3 fatty acids 1,000 mg capsule 1,000 mg PO BID 07/08/21 [History Last Taken 12/19/23] doxycycline monohydrate 100 mg capsule 100 mg PO BID #14 CAPSULES 04/08/22 [Rx Last Taken 12/19/23] furosemide 20 mg tablet 20 mg PO DAILY PRN swelling in legs, shortness of breath #30 tabs 03/28/23 [Rx Last Taken 12/19/23] azithromycin 250 mg tablet 250 mg PO DAILY 12/19/23 [History Last Taken Unknown] buspirone 10 mg tablet 10 mg PO BID 12/19/23 [History Last Taken 12/19/23] hydrochlorothiazide 12.5 mg capsule 12.5 mg PO DAILY 12/19/23 [History Last Taken 12/19/23] prednisone 10 mg tablet 10 mg PO DAILY 12/19/23 [History Last Taken 12/19/23] valbenazine 80 mg capsule (Ingrezza) 80 mg PO DAILY 12/19/23 [History Last Taken 12/19/23] Allergy/AdvReac Type Severity Reaction Status Date / Time amlodipine [From Norvasc] Allergy Intermediate Swelling Verified 07/12/22 15:13 fluoxetine [From Prozac] Allergy Intermediate mental Verified 07/12/22 15:13 status change Family History Mother Diabetes Heart disease Hypertension CHF (congestive heart failure) Father Heart disease Diabetes Hypertension Ulcer CHF (congestive heart failure) Brother Kidney disease Sister Cancer Surgical History History of colonoscopy (~2014) History of fracture of clavicle History of kidney donation History of shoulder surgery History of tubal ligation Social History (Updated 12/19/23 @ 16:[address] Marlo Knapp MD) household members: family Smoking Status: Former smoker how long ago did patient quit smokin years ago alcohol intake: current alcohol intake frequency: holidays/special occasions only Alcohol type: wine substance use type: does not use caffeine: Yes Type: carbonated beverages Number of servings: 1, coffee Number of servings: 2 and tea Number of servings: 2 ROS ROS ED Constitutional Constitutional ED: Denies chills, fever(s), sweats or weight loss Eyes Eyes: Denies blurry vision or change in vision ENT ENT ED: Reports rhinorrhea; Denies ear pain or sore throat Cardiovascular Cardiovascular: Denies chest pain, orthopnea, palpitations or paroxysmal nocturnal dyspnea Respiratory/Chest Respiratory/Chest: Reports cough, dyspnea and dyspnea on exertion; Denies orthopnea, paroxysmal nocturnal dyspnea or sputum Gastrointestinal Gastrointestinal: Denies abdominal pain, diarrhea, nausea or vomiting Genitourinary Genitourinary ED: Denies dysuria, hematuria or urinary frequency Musculoskeletal Musculoskeletal: Denies arthralgias or myalgias Integumentary Denies rash Neurologic Neurologic: Reports weakness; Denies headache(s) or paresthesias Endocrine Endocrinology: Denies cold intolerance or heat intolerance Hematologic/Lymphatic Hematologic/Lymphatic: Denies easy bleeding or easy bruising EXAM Physical Exam Const Vital Signs: 12/19/23 14:20 12/19/23 14:26 12/19/23 14:31 Temperature 97 F L 97.4 F L Temperature Source Temporal Temporal Pulse Rate 64 62 Respiratory Rate 24 H 18 Respiratory Effort Short of Breath Respiratory Depth Normal Respiratory Pattern Hyperpnea Blood Pressure 142/62 H 142/62 H Blood Pressure Mean 88 88 Pulse Ox 93 95 Oxygen Delivery Method Nasal Cannula Nasal Cannula Nasal Cannula Oxygen Flow Rate (L/min) 2 2 2 12/19/23 15:14 12/19/23 15:14 12/19/23 16:17 Temperature Temperature Source Pulse Rate 65 71 Respiratory Rate 23 H 16 Respiratory Effort Respiratory Depth Respiratory Pattern Blood Pressure Blood Pressure Mean Pulse Ox 95 Oxygen Delivery Method Nasal Cannula Oxygen Flow Rate (L/min) 2 12/19/23 16:57 12/19/23 17:50 12/19/23 18:25 Temperature 98.4 F Temperature Source Oral Pulse Rate 67 77 78 Respiratory Rate 20 H 27 H 20 H Respiratory Effort Respiratory Depth Respiratory Pattern Normal Blood Pressure 127/53 H Blood Pressure Mean 77 Pulse Ox 95 95 Oxygen Delivery Method Nasal Cannula Nasal Cannula Oxygen Flow Rate (L/min) 2 2 Positive well nourished and well developed Constitutional Narrative: Patient is tachypneic. There is no use of accessory muscles. Patient is not hypoxic on 2 L which she is been on for the last 2-1/2 days. General Appearance ED: well developed and pallor HEENT Reports dry mucous membranes HEENT Narrative: Ears normal. TMs normal. Nares patent with slight clear drainage. Posterior pharynx is normal. atraumatic and trauma Mouth ED: Yes dry mucous membranes Mouth: dry mucous membranes Eyes PERRL and EOMs intact bilaterally General Eye ED: Negative for pale conjunctiva or scleral icterus Neck no lymphadenopathy, supple, no meningeal signs and no JVD Neck Narrative: Trachea is midline. There is no stridor. Resp normal respiratory effort and No clear to auscultation bilaterally Resp Narrative: There is high pitched wheezes no did with forced expiration. There is increased expiratory phase. There are rales at both bases. Effort and Inspection: Negative for pain with movement Auscultation: diminished lung sounds diffuse Cardio regular rate, regular rhythm, S1 normal heart sound, S2 normal heart sound and no murmurs GI non-tender, non-distended and no masses Auscultation: normoactive bowel sounds Palpation: soft Back/Spine no CVA tenderness Extremity normal to inspection General Extremety ED: Yes edema; Negative for tenderness General Extremity: edema Neuro oriented x3 and CN's II-XII intact bilaterally [place] Coma Scale: document GCS findings Spontaneous Obeys Commands Oriented 15 Sensorium / Orientation: alert Psych mental status grossly normal Skin no wounds and No skin turgor normal General Skin Exam: pallor; Negative for jaundice Rashes: no rashes MDM MDM MDM Narrative Medical decision making narrative: Patient is tachypneic. She is not hypoxic on oxygen. Since she is wheezing has history of COPD with abnormal auscultative findings will obtain chest x-ray to assess for pneumonia. Doubt pneumothorax. Clinically there is no concern for heart failure. EKG was obtained to assess for ischemia since she was hypoxic with 83% saturation. CBC to assess white count and rule out anemia since she appears pale even though her conjunctive is not pale. BMP to assess renal function as well as look for endorgan dysfunction if she has pneumonia on the x- ray. Since patient has gastric COPD prednisone was ordered as well as Atrovent and albuterol aerosol treatments. History & Record Review Additional record(s) reviewed:: Prior ED visit and Prior labs Lab Data Attestation: I reviewed the patient's lab results. Lab results narrative: CBC is unremarkable. Electrolyte panel however is abnormal with evidence of hyponatremia sodium 126 and chloride 83. If patient is not on diuretic will obtain urine and serum osmolarity. Potassium is 2.6 which would suggest she is on a diuretic. Glucose is 124 with an elevated CO2 and normal anion gap. CO2 is elevated compared to a year and a half ago. Lactate is normal. Labs: Laboratory Results - last 24 hr 12/19/23 12/19/23 12/19/23 14:12 14:50 15:09 WBC 9.8 RBC 4.72 Hgb 13.3 Hct 38.2 MCV 80.9 L MCH 28.2 MCHC 34.8 RDW Std Deviation 38.5 RDW Coeff of Ryan 13.1 Plt Count 473 H MPV 8.7 Immature Gran % (Auto) 0.700 Neut % (Auto) 60.1 Lymph % (Auto) 27.5 [place] % (Auto) 10.7 H Eos % (Auto) 0.6 Baso % (Auto) 0.4 Absolute Neuts (auto) 5.9 Absolute Lymphs (auto) 2.70 Nucleated RBC % 0 Sodium 126 L Potassium 2.6 L* Chloride 83 L Carbon Dioxide 36.0 H Anion Gap 7 BUN 10 Creatinine 0.96 Estim Creat Clear Calc 53.27 Est GFR (MDRD) Af Amer 76 Est GFR (MDRD) Non-Af 62 BUN/Creatinine Ratio 10.5 Glucose 124 H Lactic Acid 1.3 Calcium 9.6 Troponin I High Sens 10 ABG Data Attestation: I personally reviewed and interpreted this ABG as follows: Interpretation: VBG reveals alkalemia consistent with her tachypnea. She has an elevated bicarb and CO2. This is chronic. ABG results: ABG 12/19/23 17:23 Specimen Type RACHEL Sample Site Not entered O2 % 2.0 VBG pH 7.53 H VBG pO2 30 VBG HCO3 35 H VBG Total CO2 36 H VBG O2 Sat (Calc) 64 VBG Base Excess 12 H POC Mix VBG pCO2 Pt Tmp 41.9 O2 Delivery Device Not entered Radiography Chest X-Ray - ED: 2 View and Read by ED Physician (Hyperaeration with chronic changes. Cardiac silhouette size normal. [place] is normal. Osseous trucks unremarkable. There is instantly reviewed interpreted by me at 1610.) Diagnostic Testing: Clinical Impression(s) from Imaging Studies Chest X-Ray 12/19/23 15:40 IMPRESSION: No acute cardiopulmonary pathology Electronically Signed: Valentin Patiño MD at 16:53 EDT , EKG Initial EKG: Attestation: I personally reviewed and interpreted this EKG as follows: Interpretation: Sinus Rhythm (Rate is 61. There is LVH by voltage criteria. OR interval is 130 ms. Cures duration 86 ms. QT duration 480 ms. [place] is normal.) Management Discussion w/another healthcare provider: Hospitalist (Hospitalist was paged for admission.) Treatment and Re-Evaluation :: Patient is on a loop diuretic. Suspect this is the cause of her hyponatremia and hypochloremia as well as hypokalemia. Will treat hypokalemia with p.o. potassium. Patient was reassessed at 1809. Patient is still wheezing. She still has decreased air movement with increased expiratory phase. She is still tachypneic . Will call hospitalist for admission since she failed outpatient therapy i.e. p.o. steroids and antibiotics. Discharge Plan Dx/Rx/DC Orders Clinical Impression: Acute exacerbation of chronic obstructive pulmonary disease, Essential hypertension, Dyslipidemia, Acute bronchospasm, Acute hypoxic respiratory fail ure, Failure of outpatient treatment, Hyponatremia, Acute hypokalemia Disposition Disposition: Acute Care Hospital [facility]
[2023-12-19] MEDS: Potassium Chloride Oral Soln 20 MEQ/15 ML UDC 40 MEQ PO ×2 (17:07→17:09)
[2023-12-19 17:27] LABS: Blood Gas Specimen Type VEN; O2 Delivery Device Not entered; SITE Not entered; VBG BASE EXCESS 12 mmol/L (-1.0-3.5); VBG Bicarbonate 35 mmol/L (22-26); VBG PO2 30 mmHg (25-40); VBG SO2 64 % (50-70); VBG TCO2 36 mmol/L (23-33); VBG pCO2 41.9 mmHg (41-51); VBG pH 7.53 (7.32-7.42)
--- NOTE | 2023-12-19 19:22 | HP.PCM.HOS_ITS ---
HPI - General General Date of Admission: 12/19/23 Date of Service: 12/19/23 Chief Complaint: Dyspnea, wheezing, cough, congestion/rhinorrhea. HPI Narrative The patient is a 63 y/o F w/ PMHx: Anxiety and Depression/Bipolar disorder, Asthma/COPD, Former tobacco use, Valvular Heart Disease, HTN, HLD, GERD, Carotid disease who presents to the [facility] ED on 12/09/23 with history of dyspnea, worse with exertion with recent dry nonproductive cough, congestion and rhinorrhea with no fevers or chills with notable wheezing ongoing for 4-5 days prior with history of being on oxygen in the past but not recently but given her worsening dyspnea recently she started using her machine approximately 2 and half days prior with evaluation per PCP with administration of azithromycin/prednisone however upon re-evaluation off oxygen with noted 83% on room air prompting ED referral. She denies any recent ill contacts. She does notes stopping smoking 10 years prior but smoked 2 ppd since she was a teen until she quit. Patient in the ED denies any orthopnea or PND but does have very mild lower extremity swelling with no history of heart failure. Workup in the ED included T97, heart rate 64, BP 142/62, respiratory 24, initially 93% on 2 L nasal cannula with most recent repeat vital signs heart rate 78, BP 127/53, respiratory rate 27, 95% on 2 L, CBC with WC 9.8, human 13.3, MCV 80.9, platelet 473 without marked shift, VBG with pH 7.53, bicarb 35, pO2 30, VBG O2 64%, BMP with sodium 126, potassium 2.6, chloride 83, carbon oxide 36, glucose 124, lactic acid 1.3, troponin 10, chest x-ray with no acute cardiopulmonary finding, EKG with sinus rhythm with no acute evidence of ischemia. In the ED patient ministered potassium chloride 40 mill equivalent p.o. x 2, DuoNeb therapy as well as prednisone 60 mg p.o. x 1. [facility]LY [facility] Medical History (Updated 12/19/23 @ 19:[address] Shayla Dubon MD) Anxiety and depression Asthma Bicuspid aortic valve Bilateral carotid artery stenosis without cerebral infarction Bipolar disorder COPD (chronic obstructive pulmonary disease) Dyslipidemia Essential hypertension GERD (gastroesophageal reflux disease) Hemorrhoid Non-rheumatic aortic sclerosis Nonrheumatic aortic (valve) insufficiency Personal history of colonic polyps Home Medications atorvastatin 10 mg tablet (Lipitor) 10 mg PO QDAY CHOLESTEROL 04/03/18 [History Last Taken 12/19/23] omeprazole 40 mg capsule,delayed release 40 mg PO BID GERD 04/03/18 [History Last Taken 12/19/23] tiotropium bromide 2.5 mcg/actuation mist for inhalation (Spiriva Respimat) 2 puff inhalation QDAY COPD 04/03/18 [History Last Taken 12/19/23] albuterol sulfate 90 mcg/actuation aerosol inhaler 2 puff inhalation Q6H PRN Sob &/Or Wheezing 04/09/19 [History Last Taken 05/20/19 03:30] fluticasone furoate 200 mcg-vilanterol 25 mcg/dose inhalation powder 1 inh inhalation DAILY COPD 04/09/19 [History Last Taken 12/19/23] lisinopril 40 mg tablet 40 mg PO DAILY BP 04/09/19 [History Last Taken 12/19/23] metoprolol tartrate 50 mg tablet 50 mg PO BID BP 04/09/19 [History Last Taken 12/19/23] olanzapine 7.5 mg tablet 7.5 mg PO QHS BIPOLAR 04/15/19 [History Last Taken 0 12/19/23] budesonide 0.5 mg/2 mL suspension for nebulization 0.5 mg (2 mL) inhalation Q12H.RT 05/24/19 [Rx Last Taken 12/19/23] omega-3 fatty acids 1,000 mg capsule 1,000 mg PO BID 07/08/21 [History Last Taken 12/19/23] doxycycline monohydrate 100 mg capsule 100 mg PO BID #14 CAPSULES 04/08/22 [Rx Last Taken 12/19/23] furosemide 20 mg tablet 20 mg PO DAILY PRN swelling in legs, shortness of breath #30 tabs 03/28/23 [Rx Last Taken 12/19/23] azithromycin 250 mg tablet 250 mg PO DAILY 12/19/23 [History Last Taken Unknown] buspirone 10 mg tablet 10 mg PO BID 12/19/23 [History Last Taken 12/19/23] hydrochlorothiazide 12.5 mg capsule 12.5 mg PO DAILY 12/19/23 [History Last Taken 12/19/23] prednisone 10 mg tablet 10 mg PO DAILY 12/19/23 [History Last Taken 12/19/23] valbenazine 80 mg capsule (Ingrezza) 80 mg PO DAILY 12/19/23 [History Last Taken 12/19/23] Allergy/AdvReac Type Severity Reaction Status Date / Time amlodipine [From Norvasc] Allergy Intermediate Swelling Verified 07/12/22 15:13 fluoxetine [From Prozac] Allergy Intermediate mental Verified 07/12/22 15:13 status change Family History Mother Diabetes Heart disease Hypertension CHF (congestive heart failure) Father Heart disease Diabetes Hypertension Ulcer CHF (congestive heart failure) Brother Kidney disease Sister Cancer Surgical History History of colonoscopy (~2014) History of fracture of clavicle History of kidney donation History of shoulder surgery History of tubal ligation Social History (Updated 12/19/23 @ 19:[address] Shayla Dubon MD) household members: family Smoking Status: Former smoker how long ago did patient quit smoking: Quit 10 yrs prior, smoked 2 ppd since teen until quit. alcohol intake: current alcohol intake frequency: holidays/special occasions only Alcohol type: wine substance use type: does not use caffeine: Yes Type: carbonated beverages Number of servings: 1, coffee Number of servings: 2 and tea Number of servings: 2 ROS ROS Narrative Admission Review of Systems: CONSTITUTIONAL: No weight loss, fever, chills, + weakness or fatigue. HEENT: + Congestion, rhinorrhea. Eyes: No visual loss, blurred vision, double vision or yellow sclerae. Ears, Nose, Throat: No hearing loss. SKIN: No rash or itching, lesions, wounds. CARDIOVASCULAR: No chest pain, chest pressure or chest discomfort, palpitations, edema, orthopnea, syncopal events. RESPIRATORY: + Dyspnea, cough without marked sputum production, wheezing. No hemoptysis. GASTROINTESTINAL: No anorexia, nausea, vomiting or diarrhea, abdominal pain, melena, BRBPR. GENITOURINARY: No dysuria, frequency, urgency or retention. NEUROLOGICAL: No headache, dizziness, syncope, paralysis, ataxia, numbness or tingling in the extremities, focal weakness, change in bowel or bladder control, seizure. MUSCULOSKELETAL: + muscle, back pain, joint pain or stiffness. HEMATOLOGIC: No anemia, bleeding or bruising. LYMPHATICS: No enlarged nodes. No history of splenectomy. PSYCHIATRIC: + History of anxiety depression/bipolar disorder. ENDOCRINOLOGIC: No reports of sweating, cold or heat intolerance. No polyuria or polydipsia. ALLERGIES: + History of asthma, allergic rhinitis. Vital Signs Vital Signs Vital Signs: 12/19/23 14:20 12/19/23 14:26 12/19/23 14:31 Temperature 97 F L 97.4 F L Temperature Source Temporal Temporal Pulse Rate 64 62 Respiratory Rate 24 H 18 Respiratory Effort Short of Breath Respiratory Depth Normal Respiratory Pattern Hyperpnea Blood Pressure 142/62 H 142/62 H Blood Pressure Mean 88 88 Pulse Ox 93 95 Oxygen Delivery Method Nasal Cannula Nasal Cannula Nasal Cannula Oxygen Flow Rate (L/min) 2 2 2 12/19/23 15:14 12/19/23 15:14 12/19/23 16:17 Temperature Temperature Source Pulse Rate 65 71 Respiratory Rate 23 H 16 Respiratory Effort Respiratory Depth Respiratory Pattern Blood Pressure Blood Pressure Mean Pulse Ox 95 Oxygen Delivery Method Nasal Cannula Oxygen Flow Rate (L/min) 2 12/19/23 16:57 12/19/23 17:50 12/19/23 18:25 Temperature 98.4 F Temperature Source Oral Pulse Rate 67 77 78 Respiratory Rate 20 H 27 H 20 H Respiratory Effort Respiratory Depth Respiratory Pattern Normal Blood Pressure 127/53 H Blood Pressure Mean 77 Pulse Ox 95 95 Oxygen Delivery Method Nasal Cannula Nasal Cannula Oxygen Flow Rate (L/min) 2 2 Weight Weight: 150 lb 9.211 oz Body Mass Index (BMI) 25.0 Physical Exam Narrative Physical Examination: General: Awake, alert, oriented x 3 and cooperative, seated upright in the ED bed, fatigued but no acute distress, notes only mildly improved since initial ED arrival. Skin: Normal color, normal turgor, no icterus, no cyanosis. HEENT: AT/NC, EOMI, PERRLA, mildly dry MM, no carotid bruits or JVD noted. Lungs: Significantly diminished, distant, end expiratory wheezing, mildly increased respiratory rate but no distress, no marked accessory muscle usage, no rales or rhonchi. Heart: Regular rate and rhythm; no gallop, rub audible. Abdomen: Soft, NTTP, ND, normal BS, no HSM. Extremities: No cyanosis, no clubbing, no marked peripheral edema noted. Neurological: Patient awake, alert, oriented as noted, cognitive function intact; pupils equally reactive to light and accommodation, cranial nerves grossly normal, moving all 4 extremities, no focal deficits, strength moderately to severely globally decreased secondary to acute presentation. Psychiatric: Affect appears fatigued otherwise normal, no acute evidence of depressive or anxiety feelings but does have underlying history. Results Lab / Micro Data 12/19/23 14:50 12/19/23 14:12 Labs: Laboratory Results - last 24 hr 12/19/23 14:12: Sodium 126 L, Potassium 2.6 L*, Chloride 83 L, Carbon Dioxide 36.0 H, Anion Gap 7, BUN 10, Creatinine 0.96, Estim Creat Clear Calc 53.27, Est GFR (MDRD) Af Amer 76, Est GFR (MDRD) Non-Af 62, BUN/Creatinine Ratio 10.5, Glucose 124 H, Calcium 9.6, Troponin I High Sens 10 12/19/23 14:50: WBC 9.8, RBC 4.72, Hgb 13.3, Hct 38.2, MCV 80.9 L, MCH 28.2, MCHC 34.8, RDW Std Deviation 38.5, RDW Coeff of Ryan 13.1, Plt Count 473 H, MPV 8.7, Immature Gran % (Auto) 0.700, Neut % (Auto) 60.1, Lymph % (Auto) 27.5, Maries % (Auto) 10.7 H, Eos % (Auto) 0.6, Baso % (Auto) 0.4, Absolute Neuts (auto) 5.9, Absolute Lymphs (auto) 2.70, Nucleated RBC % 0 12/19/23 15:09: Lactic Acid 1.3 ABG Data ABG results: ABG 12/19/23 17:23 Specimen Type RACHEL Sample Site Not entered O2 % 2.0 VBG pH 7.53 H VBG pO2 30 VBG HCO3 35 H VBG Total CO2 36 H VBG O2 Sat (Calc) 64 VBG Base Excess 12 H POC Mix VBG pCO2 Pt Tmp 41.9 O2 Delivery Device Not entered Imaging Radiology Impression Chest X-Ray 12/19/23 15:40 IMPRESSION: No acute cardiopulmonary pathology Electronically Signed: Valentin Patiño MD at 16:53 EDT , Assessment & Plan Assessment/Plan (1) Acute exacerbation of chronic obstructive pulmonary disease: PLAN: Plan The patient is a 63 y/o F w/ PMHx: Anxiety and Depression/Bipolar disorder, Asthma/COPD, Former tobacco use, Valvular Heart Disease, HTN, HLD, GERD, Carotid disease who presents to the [facility] ED on 12/09/23 with history of dyspnea, worse with exertion with recent dry nonproductive cough, congestion and rhinorrhea with no fevers or chills with notable wheezing ongoing for 4-5 days prior with history of being on oxygen in the past but not recently but given her worsening dyspnea recently she started using her machine approximately 2 and half days prior with evaluation per PCP with administration of azithromycin/prednisone however upon re-evaluation off oxygen with noted 83% on room air prompting ED referral. #1. Acute Hypoxia (not consistent with acute hypoxia respiratory failure) secondary to Acute on Chronic COPD/Asthma exacerbation possible Secondary to Acute Viral Syndrome, Failed outpatient treatment: Will admit to [facility] telemetry given electrolyte disturbances as noted, maintain on oxygen with wean as t olerated to room air, will hold home inhalers and transition in the interim to ATC duonebs, PRN albuterol, IV methylprednisolone, HOB, IS parameters, will obtain sputum Cx, urine antigens, respiratory viral panel, procalcitonin, will continue patient recently added oral doxycycline but adjust/de-escalate if no evidence of bacterial component. #2. Acute hyponatremia, hypochloremia: Admission BMP with sodium 126, chloride 83, possibly related to patient diuretic therapy with hypovolemic component, will hold diuretics, judiciously hydrate and repeat CMP in AM. #3. Hypokalemia: Admission K+ 2.6, magnesium level requested, supplementation given, repeat level in AM. #4. Anxiety and depression/bipolar disorder: Clarifying, currently listed as being on valbenazine as well as olanzapine, BuSpar, encourage continued outpatient follow-up as previously arranged. #5. Valvular heart disease: [facility] echocardiogram from 05/16/2019 with LV normal size, LV systolic function normal, EF 64? percent, grade 1 LV diastolic dysfunction, RV normal size, RV systolic function normal, moderate AV regurgita tion with reported no significant change since 2018 echocardiogram. #6. Hypertension: Continue home regimen including lisinopril, metoprolol, temporarily holding diuretics as noted, PRN hydralazine. #7. Hyperlipidemia: Continue patient on statin therapy. #8. Carotid disease: Noted history: We will continue patient aspirin, statin, hypertensive regimen as noted. #9. Former tobacco use: Encourage continued tobacco cessation. #10. GERD: We will continue patient on PPI. #11. DVT prophylaxis: Lovenox. #12. CODE status: Patient HCPOA and living will are not in place but she notes that her son and daughter would be her decision makers if necessary. Discussed CODE status at length including difference between FULL code, DNR-CCA and DNR-CC status. Following discussions about the differences in these status, requested Full Code. Advanced Care Planning Face to Face Time: 16 minutes. Charges/Coding Visit Charges Inpatient E&M: 38132 Init Hosp L3 Procedures Hospitalists Procedures: 35807 Advncd Care Plan 30 Min
[2023-12-19 20:00] LABS: Magnesium 2.1 mg/dL (1.6-2.6)
[2023-12-19 20:38] LABS: Procalcitonin < 0.04 ng/mL (0.00-0.09)
[2023-12-19] MEDS: 0.9% Normal Saline (1000mL) 1,000 ML 100 ML IV (21:40)
[2023-12-19] MEDS: 0.9% Saline Lock 10 ML Syringe IV (23:41)
[2023-12-19] MEDS: Metoprolol Tartrate 50 MG Tablet PO (23:41)
[2023-12-19] MEDS: Atorvastatin Calcium 10 MG Tablet PO (23:42)
[2023-12-19] MEDS: Doxycycline 100 MG CAPSULE PO (23:42)
[2023-12-19] MEDS: busPIRone 5 MG Tablet 10 MG PO (23:43)
[2023-12-19] MEDS: Pantoprazole Sodium 40 MG Tablet PO (23:44)
[2023-12-19] MEDS: MELATONIN 3 MG TABLET PO (23:46)
[2023-12-20] VITALS (12 sets, daily range): BP systolic 150–179; BP diastolic 63–78; PULSE 66–83; RESP 16–22; TEMP 36.1–36.8; O2SAT 94–100; BMI 24.7
[2023-12-20] MEDS: OLANZapine 2.5 MG Tablet 7.5 MG PO ×2 (00:36→22:57)
[2023-12-20] MEDS: Albuterol 2.5 MG/3 ML VIAL.NEB. INHALATION (01:21)
[2023-12-20] MEDS: 0.9% Saline Lock 10 ML Syringe IV ×3 (05:57→22:57)
[2023-12-20] MEDS: 0.9% Normal Saline (1000mL) 1,000 ML 100 ML IV (05:59)
[2023-12-20 06:24] LABS: Absolute Lymphocyte Count 0.91 X10^3/uL (0.83-4.51); Absolute Neutrophil Count 5.4 X10^3/uL (2.0-7.7); Basophil# 0.02 X10^3/uL; Basophil% 0.3 % (0-1); Hematocrit 37.8 % (37-47); Hemoglobin 12.6 g/dL (12.0-15.0); Lymphocyte # 0.91 X10^3/ul (0.83-4.51); Lymphocyte % 13.7 % (19-41); Mean Corp Hgb Conc 33.3 g/dL (32-36); Mean Corpuscular Hgb 28.3 pg (27.0-32.0); Mean Corpuscular Volume 84.8 fL (81-99); Mean Platelet Vol. 8.6 fl (6.2-12.0); Monocyte# 0.27 X10^3/uL; Monocyte% 4.1 % (0-10); NRBC Flagged by Analyzer 0 % (0-5); Neutrophil # 5.36 X10^3/uL (2.7-7.7); Neutrophil % 80.4 % (47-70); Platelet Count 355 K/mm3 (150-450); RBC Distribution Width CV 13.3 % (11.6-14.6); RBC Distribution Width SD 41.3 fl (35.1-43.9); Red Blood Count 4.46 M/mm3 (4.2-5.4); White Blood Count 6.7 K/mm3 (4.4-11.0)
[2023-12-20 07:03] LABS: ALB/GLOB Ratio 0.9 RATIO (0.9-2.4); AST(SGOT) 12 U/L (15-37); Alanine Aminotransfer ALT/SGPT 26 U/L (13-56); Albumin, Serum 3.2 g/dL (3.2-5.0); Alkaline Phosphatase 50 U/L (45-117); Anion Gap 3 (5-15); BUN 10 mg/dL (7-18); BUN/Creat Ratio 12.1 RATIO (10-20); Calcium,Total 8.8 mg/dL (8.5-10.1); Chloride 98 mmol/L (98-107); Creatinine, Serum 0.83 mg/dL (0.55-1.02); EST Glomerular Filtration Rate 74 mL/min (>60); Est Glom Filt Rate - Afr Amer 89 mL/min (>60); Estimated Creatinine Clearance 63.89 ml/min; Globulin 3.4 g/dL (2.2-4.2); Glucose 150 mg/dL (74-106); Potassium 3.6 mmol/L (3.5-5.1); Protein, Total 6.6 g/dL (6.4-8.2); Sodium Level 134 mmol/L (136-145)
[2023-12-20] MEDS: Aspirin 81 MG TAB.CHEW PO (07:51)
[2023-12-20] MEDS: Ipratropium/Albuterol Sulfate 3 ML AMPUL.NEB INHALATION ×3 (08:43→19:34)
--- NOTE | 2023-12-20 10:08 | PN.HOSP_ITS ---
Reason for Visit Reason for Visit: Diagnoses Chronic obstructive pulmonary disease with (acute) exacerbation (12/19/23) Objective Data Objective Data Vital Signs: Vital Signs Temp Pulse Resp BP Pulse Ox O2 Del Method O2 Flow Rate 97.2 F L 77 19 H 159/71 H 94 Nasal Cannula 2 12/20/23 05:00 12/20/23 08:57 12/20/23 08:57 12/20/23 05:00 12/20/23 08:22 12/20/23 08:22 12/20/23 08:22 Oxygen Flow Rate (L/min) 2 Oxygen Delivery Method Nasal Cannula Weight: 144 lb 13.499 oz Body Mass Index (BMI) 24.7 Intake & Output: Intake and Output for Last 24 Hours 12/18/23 12/19/23 12/20/23 23:59 23:59 23:59 Intake Total 831.67 / 831.67 Balance 831.67 / 831.67 Lab / Micro Data 12/20/23 05:45 12/20/23 05:45 Labs: Laboratory Results - last 24 hr 12/19/23 14:12: Sodium 126 L, Potassium 2.6 L*, Chloride 83 L, Carbon Dioxide 36.0 H, Anion Gap 7, BUN 10, Creatinine 0.96, Estim Creat Clear Calc 53.27, Est GFR (MDRD) Af Amer 76, Est GFR (MDRD) Non-Af 62, BUN/Creatinine Ratio 10.5, Glucose 124 H, Calcium 9.6, Magnesium 2.1, Troponin I High Sens 10 12/19/23 14:50: WBC 9.8, RBC 4.72, Hgb 13.3, Hct 38.2, MCV 80.9 L, MCH 28.2, MCHC 34.8, RDW Std Deviation 38.5, RDW Coeff of Ryan 13.1, Plt Count 473 H, MPV 8.7, Immature Gran % (Auto) 0.700, Neut % (Auto) 60.1, Lymph % (Auto) 27.5, Harris % (Auto) 10.7 H, Eos % (Auto) 0.6, Baso % (Auto) 0.4, Absolute Neuts (auto) 5.9, Absolute Lymphs (auto) 2.70, Nucleated RBC % 0 12/19/23 15:09: Lactic Acid 1.3 12/19/23 19:57: Procalcitonin < 0.04 12/20/23 05:45: WBC 6.7, RBC 4.46, Hgb 12.6, Hct 37.8, MCV 84.8, MCH 28.3, MCHC 33.3, RDW Std Deviation 41.3, RDW Coeff of Ryan 13.3, Plt Count 355, MPV 8.6, Immature Gran % (Auto) 1.500 H, Neut % (Auto) 80.4 H, Lymph % (Auto) 13.7 L, Harris % (Auto) 4.1, Eos % (Auto) 0.0, Baso % (Auto) 0.3, Absolute Neuts (auto) 5 .4, Absolute Lymphs (auto) 0.91, Nucleated RBC % 0, Sodium 134 L, Potassium 3.6, Chloride 98, Carbon Dioxide 33.0 H, Anion Gap 3 L, BUN 10, Creatinine 0.83, Estim Creat Clear Calc 63.89, Est GFR (MDRD) Af Amer 89, Est GFR (MDRD) Non-Af 74, BUN/Creatinine Ratio 12.1, Glucose 150 H, Calcium 8.8, Total Bilirubin 0.40, AST 12 L, ALT 26, Alkaline Phosphatase 50, Total Protein 6.6, Albumin 3.2, Globulin 3.4, Albumin/Globulin Ratio 0.9 Micro: Microbiology 12/19/23 22:55 Mucosa - Nasopharyngeal Respiratory Panel (PCR) - Final 12/19/23 23:00 Urine, Clean Catch Legionella Antigen - Final 12/19/23 23:00 Urine, Clean Catch Streptococcus pneumoniae Antigen (M - Final ABG Data ABG results: ABG 12/19/23 17:23 Specimen Type RACHEL Sample Site Not entered O2 % 2.0 VBG pH 7.53 H VBG pO2 30 VBG HCO3 35 H VBG Total CO2 36 H VBG O2 Sat (Calc) 64 VBG Base Excess 12 H POC Mix VBG pCO2 Pt Tmp 41.9 O2 Delivery Device Not entered Radiography Diagnostic Testing: Radiology Impression Chest X-Ray 12/19/23 15:40 IMPRESSION: No acute cardiopulmonary pathology Electronically Signed: Valentin Patiño MD at 16:53 EDT Reading Location ID and State: [facility] / [place] Tel , Service support , Physical Exam Narrative Seen and examined. General: Alert, Oriented x3, Cooperative HEENT: Atraumatic, PERRLA, EOMI, Normocephalic Oral: No Gingival or Mucosal Lesions/ Ulcerations Neck: Supple, No JVD, Negative Carotid Bruits Chest wall/Lungs: Air entry severely diminished bilaterally. Dyspnea at rest. Mild respiratory distress, bilateral coarse crepitations and wheezing Cardiovascular: Regular rate, Regular Rhythm, Normal S1, Normal S2, No M/G/R Abdomen: Bowel Sounds Present, Soft, Non Tender, Non-Distended : No dysuria. No renal angle tenderness. No suprapubic tenderness. Extremities: No edema, Capillary Refill Less than 3 Seconds Skin: No rashes, No breakdown Musculoskeletal: No Tenderness to Palpation of Joints or Extremities. Restless legs. ROM full Neurological: Cranial nerves II-XII grossly intact, DTR 2+/4. No acute focal neurological deficit. Psych/Mental Status: Flat affect. Assessment & Plan Assessment/Plan (1) Acute exacerbation of chronic obstructive pulmonary disease: PLAN: Plan The patient is a 63 y/o F brought to ED by EMS for shortness of breath, worsening dyspnea on exertion, recent dry nonproductive cough, congestion and rhinorrhea, wheezing for 4 to 5 days. Pulse ox was found 83% on room air. Rec ently started on oxygen 2 and half days ago on 2 L of oxygen #1. Acute Hypoxia (not consistent with acute hypoxia respiratory failure) secondary to Acute on Chronic COPD/Asthma exacerbation possible Secondary to Acute Viral Syndrome, Failed outpatient treatment: Will admit to [facility] telemetry given electrolyte disturbances as noted, maintain on oxygen with wean as tolerated to room air, will hold home inhalers and transition in the interim to ATC duonebs, PRN albuterol, IV methylprednisolone, HOB, IS parameters, will obtain sputum Cx, urine antigens, respiratory viral panel, procalcitonin, will continue patient recently added oral doxycycline but adjust/de-escalate if no evidence of bacterial component. 5/: Patient is still short of breath, wheezing and dyspnea at rest. Respiratory panel negative. Urinary antigens are negative. Continue ceftriaxone and azithromycin. Patient is being managed on scheduled bronchodilator, IV Solu-Medrol, Mucinex, incentive spirometry and Pep. #2. Acute hyponatremia, hypochloremia: Admission BMP with sodium 126, chloride 83, probably due to diuretic 12/19: Repeat sodium 134. Bicarb 33 improved from 36 consistent with metabolic alkalosis. Patient also has mild respiratory alkalosis on VBG though not ideal. pH 7.5 3/mixed pCO2 42/36 #3. Hypokalemia: Admission K+ 2.6, magnesium level requested, supplementation given, repeat level in AM. 12/19: Hypokalemia resolved. Repeat potassium 3.6. #4. Anxiety and depression/bipolar disorder: Clarifying, currently listed as being on valbenazine as well as olanzapine, BuSpar, encourage continued outpatient follow-up as previously arranged. #5. Valvular heart disease: [facility] echocardiogram from 05/16/2019 with LV normal size, LV systolic function normal, EF 64? percent, grade 1 LV diastolic dysfunction, RV normal size, RV systolic function normal, moderate AV regurgitat ion with reported no significant change since 2018 echocardiogram. #6. Hypertension: Continue home regimen including lisinopril, metoprolol, temporarily holding diuretics as noted, PRN hydralazine. #7. Hyperlipidemia: Continue patient on statin therapy. #8. Carotid disease: Noted history: We will continue patient aspirin, statin, hypertensive regimen as noted. #9. Former tobacco use: Encourage continued tobacco cessation. #10. GERD: We will continue patient on PPI. #11. DVT prophylaxis: Lovenox. #12. CODE status: Patient HCPOA and living will are not in place but she notes that her son and daughter would be her decision makers if necessary. Discussed CODE status at length including difference between FULL code, DNR-CCA and DNR-CC status. Following discussions about the differences in these status, requested Full Code. Plan of management discussed with the patient's son and daughter present in the room. Microbiology Past 72 Hours 12/19/23 22:55 Mucosa - Nasopharyngeal Respiratory Panel (PCR) - Final 12/19/23 23:00 Urine, Clean Catch Legionella Antigen - Final 12/19/23 23:00 Urine, Clean Catch Streptococcus pneumoniae Antigen (M - Final Laboratory Results 12/19/23 14:12: Sodium 126 L, Potassium 2.6 L*, Chloride 83 L, Carbon Dioxide 36.0 H, Anion Gap 7, BUN 10, Creatinine 0.96, Estim Creat Clear Calc 53.27, Est GFR (MDRD) Af Amer 76, Est GFR (MDRD) Non-Af 62, BUN/Creatinine Ratio 10.5, Glucose 124 H, Calcium 9.6, Magnesium 2.1, Troponin I High Sens 10 12/19/23 14:50: WBC 9.8, RBC 4.72, Hgb 13.3, Hct 38.2, MCV 80.9 L, MCH 28.2, MCHC 34.8, RDW Std Deviation 38.5, RDW Coeff of Ryan 13.1, Plt Count 473 H, MPV 8.7, Immature Gran % (Auto) 0.700, Neut % (Auto) 60.1, Lymph % (Auto) 27.5, Harris % (Auto) 10.7 H, Eos % (Auto) 0.6, Baso % (Auto) 0.4, Absolute Neuts (auto) 5.9, Absolute Lymphs (auto) 2.70, Nucleated RBC % 0 12/19/23 15:09: Lactic Acid 1.3 12/19/23 17:23: Specimen Type RACHEL, Sample Site Not entered, O2 % 2.0, VBG pH 7.53 H, VBG pO2 30, VBG HCO3 35 H, VBG Total CO2 36 H, VBG O2 Sat (Calc) 64, VBG Base Excess 12 H, POC Mix VBG pCO2 Pt Tmp 41.9, O2 Delivery Device Not entered 12/19/23 19:57: Procalcitonin < 0.04 12/20/23 05:45: WBC 6.7, RBC 4.46, Hgb 12.6, Hct 37.8, MCV 84.8, MCH 28.3, MCHC 33.3, RDW Std Deviation 41.3, RDW Coeff of Ryan 13.3, Plt Count 355, MPV 8.6, Imm ature Gran % (Auto) 1.500 H, Neut % (Auto) 80.4 H, Lymph % (Auto) 13.7 L, Harris % (Auto) 4.1, Eos % (Auto) 0.0, Baso % (Auto) 0.3, Absolute Neuts (auto) 5.4, Absolute Lymphs (auto) 0.91, Nucleated RBC % 0, Sodium 134 L, Potassium 3.6, Chloride 98, Carbon Dioxide 33.0 H, Anion Gap 3 L, BUN 10, Creatinine 0.83, Estim Creat Clear Calc 63.89, Est GFR (MDRD) Af Amer 89, Est GFR (MDRD) Non-Af 74, BUN/Creatinine Ratio 12.1, Glucose 150 H, Calcium 8.8, Total Bilirubin 0.40, AST 12 L, ALT 26, Alkaline Phosphatase 50, Total Protein 6.6, Albumin 3.2, Globulin 3.4, Albumin/Globulin Ratio 0.9 Charges/Coding Visit Charges Inpatient E&M: 83156 Subs Hosp L2
[2023-12-20] MEDS: Lisinopril 40 MG Tablet PO (11:05)
[2023-12-20] MEDS: busPIRone 5 MG Tablet 10 MG PO ×2 (11:05→22:56)
[2023-12-20] MEDS: Metoprolol Tartrate 50 MG Tablet PO ×2 (11:06→22:56)
[2023-12-20] MEDS: Pantoprazole Sodium 40 MG Tablet PO ×2 (11:06→22:57)
[2023-12-20] MEDS: guaiFENesin/D-Methorphan TAB.SR.12H 2 TABLET PO ×2 (11:06→22:56)
[2023-12-20] MEDS: VALBENAZINE TOSYLATE 80 MG CAPSULE PO (11:07)
[2023-12-20] MEDS: Enoxaparin 40 MG/0.4 ML Syringe SC (11:07)
--- NOTE | 2023-12-20 11:46 | CASEMGMT ---
EDOUARD GOYAL Assessment Face to Face with patient for initial transition planning/care coordination assessment. EDOUARD GOYAL introduced self and role at [facility], pt voices understanding. Pt is A&Ox4 and is resting comfortably in bed and is calm. Pt son at bedside. Care providers, pharmacy, and demographics verified. Admitting dx: Acute Hypoxia, Acute COPD Exacerbation, Hypokalemia PCP: María Elena Paige Specialists: Neuro and Pulmonary through [facility] Preferred Pharmacy: [facility] Insurance: [employer] [facility] HMO Prescription Benefit: Yes LNOK: Jeanmarie Gay(SON) Living Arrangements: Pt lives alone in a ground level apartment with a flat entrance ADLs/IADLs: Normally ind but has been requiring more help lately. Pt son and daughter help the pt currently. Transportation: Son, Daughter. Pt does not drive DME: O2 through [employer]. Pt states that she wears 2L continuous. Order verified through Nick and Nick states the current order is 2L with exertion. Pt has 2 portable tanks and a concentrator. Pt does not have a Pulse Ox but can afford one. Pt is also requesting a tank amezquita for her tanks at home. Otherwise, pt denies all DME uses or needs (including [facility]) HHC/SNF: denies history Pt?s goal: Return to [place] and return home Plan: TBD. 6-click is 24 and no therapy is currently ordered on this pt. The pt son states that he would like [facility] set up for this pt for PT. Pt and pt son educated that the pt would need to be considered home bound to qualify for this. Pt son states understanding. The plan is to see how the pt does during her stay here to see if she would qualify for this. If not, the pt may want OP PT set up. Pt son also inquired about Private Duty aides. EDOUARD Cortez CM updated with this information and to follow. Krystal Valencia RN, CM
--- NOTE | 2023-12-20 15:10 | CASEMGMT ---
Addendum entered by Diego Dewey 12/20/23 16:10: Discussed Pt Link w/pt and she is interested in consult. Order placed. Pt states she does not have a pulse ox, but she is able to afford to purchase one on her own. Pt provided w/[facility] van transp contact info. Original Note: RN JYOTSNA note: RN CM to room. Introduced self and role. While RN JYOTSNA talking w/pt, son, Jeanmarie called pt and then spoke w/this RN CM. Jeanmarie and pt both interested in pt getting therapy @ discharge. Pt confirms she is not homebound and can get in/out of vehicles w/out difficulty and uses no AD to ambulate. They are both aware of [facility]'s homebound criteria for HHC. They are interested in OP therapy, made aware of locations in [place]. They would like pt to go to [facility] and utilize [facility] van transp. They were made aware a script can be provided for OP therapy @ ut. They decline having RN CM schedule appt @ [facility] and Jeanmarie states they will schedule it along w/[facility] van transp. Pt states she will be able to get in/out of van w/out assistance. Call placed to Judy @ [employer] and she was informed pt has lost the amezquita to turn portable O2 tank on/off. She states if someone is able to stop @ the local branch, they can give them a couple keys free of charge. Call placed to Jeanmarie's # and his answered. She was made aware, states she knows where the local branch is, and states someone would be available to garbage pick up worker a new amezquita. Jeanmarie did inform this RN CM earlier that he will be able to bring in pt's portable o2 tank @ discharge. Galdino THAKKAR RN CM
[2023-12-20] MEDS: Atorvastatin Calcium 10 MG Tablet PO (22:57)
[2023-12-20] MEDS: Doxycycline 100 MG CAPSULE PO (22:57)
[2023-12-21] VITALS (18 sets, daily range): BP systolic 135–204; BP diastolic 64–100; PULSE 50–82; RESP 16–20; TEMP 36.1–36.7; O2SAT 92–99; BMI 24.7
[2023-12-21] MEDS: 0.9% Saline Lock 10 ML Syringe IV ×2 (05:13→06:36)
[2023-12-21] MEDS: hydrALAZINE 20 MG/ML Vial 10 MG IV (05:13)
[2023-12-21 06:39] LABS: Absolute Lymphocyte Count 1.84 X10^3/uL (0.83-4.51); Absolute Neutrophil Count 13.4 X10^3/uL (2.0-7.7); Basophil# 0.03 X10^3/uL; Basophil% 0.2 % (0-1); Eosinophil# 0.03 X10^3/uL; Eosinophils% 0.2 % (0-5); Hematocrit 39.3 % (37-47); Lymphocyte # 1.84 X10^3/ul (0.83-4.51); Lymphocyte % 11.1 % (19-41); Mean Corp Hgb Conc 33.1 g/dL (32-36); Mean Corpuscular Hgb 28.4 pg (27.0-32.0); Mean Corpuscular Volume 85.8 fL (81-99); Mean Platelet Vol. 8.5 fl (6.2-12.0); Monocyte# 0.88 X10^3/uL; Monocyte% 5.3 % (0-10); NRBC Flagged by Analyzer 0 % (0-5); Neutrophil # 13.35 X10^3/uL (2.7-7.7); Neutrophil % 80.6 % (47-70); Platelet Count 465 K/mm3 (150-450); RBC Distribution Width SD 43.6 fl (35.1-43.9); Red Blood Count 4.58 M/mm3 (4.2-5.4); White Blood Count 16.6 K/mm3 (4.4-11.0)
[2023-12-21 07:07] LABS: Anion Gap 6 (5-15); BUN 14 mg/dL (7-18); Calcium,Total 9.3 mg/dL (8.5-10.1); Chloride 103 mmol/L (98-107); Creatinine, Serum 0.82 mg/dL (0.55-1.02); EST Glomerular Filtration Rate 74 mL/min (>60); Est Glom Filt Rate - Afr Amer 90 mL/min (>60); Estimated Creatinine Clearance 59.85 ml/min; Glucose 142 mg/dL (74-106); Potassium 4.1 mmol/L (3.5-5.1); Sodium Level 139 mmol/L (136-145)
[2023-12-21] MEDS: Ipratropium/Albuterol Sulfate 3 ML AMPUL.NEB INHALATION ×4 (07:39→19:37)
[2023-12-21] MEDS: Aspirin 81 MG TAB.CHEW PO (08:01)
[2023-12-21] MEDS: Doxycycline 100 MG CAPSULE PO ×2 (09:23→20:59)
[2023-12-21] MEDS: VALBENAZINE TOSYLATE 80 MG CAPSULE PO (09:23)
[2023-12-21] MEDS: Pantoprazole Sodium 40 MG Tablet PO ×2 (09:24→21:04)
[2023-12-21] MEDS: busPIRone 5 MG Tablet 10 MG PO ×2 (09:24→21:04)
[2023-12-21] MEDS: Metoprolol Tartrate 50 MG Tablet PO ×2 (09:25→20:59)
[2023-12-21] MEDS: Lisinopril 40 MG Tablet PO (09:26)
[2023-12-21] MEDS: Enoxaparin 40 MG/0.4 ML Syringe SC (09:27)
[2023-12-21] MEDS: guaiFENesin/D-Methorphan TAB.SR.12H 2 TABLET PO ×2 (09:28→21:04)
[2023-12-21] MEDS: Polyethylene Glycol 3350 17 GM PACKET PO (09:28)
[2023-12-21] MEDS: hydroCHLOROthiazide 12.5mg 12.5 MG PO (09:35)
--- NOTE | 2023-12-21 11:11 | CT_ITS ---
STUDY: CT BRAIN WITHOUT CONTRAST REASON FOR EXAM: Female, 63 years old. New altered mentation w/ persistent high BP RADIATION DOSAGE (If Supplied By Facility): CTDIvol = ( 44.99 ) mGy, DLP = ( 796.11 ) mGycm TECHNIQUE: Transaxial CT imaging of the brain was performed without administration of intravenous contrast material. Individualized dose optimization techniques were used for this CT. COMPARISON: Comparison is made with prior study dated September 09, 2015. FINDINGS: Normal soft tissue structures. There is hyperostosis frontalis internus. There is mild cerebral atrophy with widening of the extra-axial spaces and ventricular dilatation. Normal white matter tracts of the cerebral hemispheres. Normal basal ganglia and thalami. Normal brainstem. Normal cerebellum. There is no intracranial hemorrhage. There are no findings of an acute ischemic infarction. Atherosclerotic calcification of the cavernous portions of the internal carotid arteries bilaterally. Mild degree of mucosal thickening of the left ethmoid sinus. CT/Brain/Head without Contrast IMPRESSION: Chronic involutional changes of the brain. Electronically Signed: Cristopher Barragan MD at 12:00 EDT ,
[2023-12-21 11:27] LABS: Allen Test Positive; Base Excess 7 mmol/L (-2 to +2); Blood Gas Specimen Type ART; Mode Not entered; O2 Delivery Device Cannula; PO2 80 mmHG (75-100); SITE R Radial; SO2 96 % (95-99); Total Carbon Dioxide 32 mmol/L; pH 7.46 (7.35-7.45)
--- NOTE | 2023-12-21 11:52 | NURSING ---
report called to [facility]
--- NOTE | 2023-12-21 13:47 | PN.HOSP_ITS ---
Reason for Visit Reason for Visit: Diagnoses Chronic obstructive pulmonary disease with (acute) exacerbation (12/19/23) Subjective Subjective No acute events overnight. Patient seen at bedside this morning, multiple family numbers present. Patient was sitting up in bed but fairly lethargic appearing. Per family, she did not appear to be at her baseline mental status like she was yesterday. Patient was able to tell me her name, current date and where she was but did not provide much insight into her medical condition. She was also noted to have persistently elevated blood pressures this morning. Obtained a CT head without contrast and ABG for further evaluation. CT head was nonacute, and ABG was normal. Per nursing staff, patient worked well with therapy earlier this afternoon and her mental status seemed much improved. No overt sedating medications were given overnight or this morning. Patient was on IV Solu-Medrol 40 mg every 8 hours for COPD exacerbation and I de-escalated to prednisone 40 mg daily to start tomorrow. Seems most likely that patient was having altered mentation secondary to high steroid dosing. Objective Data Objective Data Vital Signs: Vital Signs Temp Pulse Resp BP Pulse Ox O2 Del Method O2 Flow Rate 97 F L 60 18 148/78 H 99 Nasal Cannula 2 12/21/23 13:32 12/21/23 13:32 12/21/23 13:32 12/21/23 13:32 12/21/23 13:32 12/21/23 13:32 12/21/23 13:32 Oxygen Flow Rate (L/min) 2 Oxygen Delivery Method Nasal Cannula Weight: 65.6 kg Body Mass Index (BMI) 24.7 Intake & Output: Intake and Output for Last 24 Hours 12/19/23 12/20/23 12/21/23 23:59 23:59 23:59 Intake Total 2126.67 / 2126.67 400 / 400 Balance 2126.67 / 2126.67 400 / 400 Medical Nutrition Assessment Dietitian: Malnutrition Criteria Met Start: 12/20/23 10:52 Freq: Status: Active Protocol: Document 12/20/23 10:52 [place] (Rec: 12/20/23 10:53 LO [id number]) Nutrition Malnutrition Evidence of Malnutrition Exists Yes Malnutrition (severe): Acute Illness/Injury Evidenced By Suboptimal Energy Intake ( Severe),Weight Loss (Severe) Clinical Problem Acute Disease or Injury Related Malnutrition Etiology severe related to suboptimal appetite and increased nutrition needs due to COPD exacerbation Signs/Symptoms as evidenced by PO intakes <50 % of estimated nutrition needs for >5 days and 3.4% weight loss in 1 week Status Active Problem Recommendation Dietitian Recommendations/Changes Continue Cardiac diet to manage medical conditions. Recommend liberalizing diet to Regular -LAURA if PO intakes remain poor. RD will order 120mL Ensure Plus High Protein chocolate 4x daily with medpass to provide supplemental energy and to promote weight maintenance. Lab / Micro Data 12/21/23 06:16 12/21/23 06:16 Labs: Laboratory Results - last 24 hr 12/21/23 06:16: WBC 16.6 H, RBC 4.58, Hgb 13.0, Hct 39.3, MCV 85.8, MCH 28.4, MCHC 33.1, RDW Std Deviation 43.6, RDW Coeff of Ryan 14.0, Plt Count 465 H, MPV 8.5, Immature Gran % (Auto) 2.600 H, Neut % (Auto) 80.6 H, Lymph % (Auto) 11.1 L , [facility] % (Auto) 5.3, Eos % (Auto) 0.2, Baso % (Auto) 0.2, Absolute Neuts (auto) 13.4 H, Absolute Lymphs (auto) 1.84, Nucleated RBC % 0, Sodium 139, Potassium 4.1, Chloride 103, Carbon Dioxide 30.0, Anion Gap 6, BUN 14, Creatinine 0.82, Estim Creat Clear Calc 59.85, Est GFR (MDRD) Af Amer 90, Est GFR (MDRD) Non-Af 74, BUN/Creatinine Ratio 17.0, Glucose 142 H, Calcium 9.3 Micro: Microbiology 12/19/23 22:55 Mucosa - Nasopharyngeal Respiratory Panel (PCR) - Final 12/19/23 23:00 Urine, Clean Catch Legionella Antigen - Final 12/19/23 23:00 Urine, Clean Catch Streptococcus pneumoniae Antigen (M - Final ABG Data ABG results: ABG 12/21/23 11:25 Specimen Type ART Sample Site R Radial pH 7.46 H Bicarbonate Actual 31.0 H Total CO2 32 Base Excess 7 H O2 Saturation 96 O2 % 2.0 ABG pCO2 44.0 ABG pO2 80 Brian Test Positive O2 Delivery Device Cannula Vent Mode Not entered Radiography Diagnostic Testing: Radiology Impression Brain CT 12/21/23 11:11 IMPRESSION: Chronic involutional changes of the brain. Electronically Signed: Cristopher Barragan MD at 12:00 EDT , Physical Exam Const alert and no apparent distress Constitutional Narrative: Elderly female, sitting up in bed, moderately lethargic and fatigued appearing, otherwise in no acute distress. General Appearance: cooperative and comfortable HEENT normocephalic, head/scalp atraumatic, hearing grossly normal bilaterally and nasal mucous membranes and turbinates normal Eyes PERRL, EOMs intact bilaterally and conjunctivae normal Neck full ROM Chest inspection of chest normal Resp normal respiratory effort and no use of accessory muscles Resp Narrative: Mild wheezing noted in upper airways bilaterally. Otherwise good air movement throughout bilaterally. Breathing comfortably on 2 L nasal cannula with good oxygen saturations. Cardio regular rate, regular rhythm, no murmurs and peripheral pulses 2+ throughout GI normal to inspection, nondistended, normoactive bowel sounds, soft to palpation, non-tender and non-distended Back/Spine normal ROM Extremity normal to inspection, full ROM and no pedal edema Skin no rashes or lesions noted Neuro moves all extremities and no focal motor deficits Speech: speech normal Assessment & Plan Assessment/Plan (1) Acute exacerbation of chronic obstructive pulmonary disease: (2) Hypoxia: (3) HTN (hypertension): PLAN: Plan Patient is a 63-year-old female who presented [facility] ED on 12/19/2023 with worsening shortness of breath with wheezing and productive cough. 1. Acute exacerbation of COPD; acute hypoxia on chronic hypoxic respiratory failure, improved Wears 2 L nasal cannula at baseline at home. Chest x-ray on admit nonacute. Respiratory PCR panel negative. Urine antigens negative. Was requiring up to 4 L nasal cannula on admission to maintain appropriate oxygen saturations. ? Currently satting in mid to high 90s at rest on home 2 L nasal cannula. De- escalated from IV Solu-Medrol to p.o. prednisone 40 mg daily on 12/20. Continue p.o. doxycycline. Will plan for 5-day courses of antibiotics and steroids total. Continue scheduled DuoNebs for now. Continue home long-acting inhalers. Will plan for O2 ambulatory test tomorrow in anticipation for discharge to ensure patient does not have increased oxygen needs on discharge. 2. Acute toxic encephalopathy, improving ? Noted to be more lethargic and confused on morning of 12/20. CT head nonacute. ABG normal. Vitals remained stable. Seems most likely secondary to high-dose IV steroids started on admission, as patient improved over the course of the day on 12/20 once steroids were discontinued. Continue to monitor. 3. Acute on chronic debility ? PT/OT/case management following. Patient lives at home alone but patient's son noted she has seemed more debilitated recently. Likely planning for home on discharge with outpatient physical therapy services. 4. Hyponatremia, hypochloremia, hypokalemia, all resolved ? Sodium 126, chloride 83, potassium 2.6 on admit. Suspect secondary to dehydration and recent poor p.o. intake. Resolved with IV fluid resuscitation and potassium replacement. Monitoring BMP daily. 5. Hypertension ? Home regimen of lisinopril 40 mg twice daily, hydrochlorothiazide 12.5 mg daily, Lopressor 50 mg twice daily. Unclear on why patient is on very high lisinopril dose as max recommended dose is 40 mg daily. Hydrochlorothiazide was held on admission given hyponatremia. Patient's BP has been persistently elevated to the 150s to 170s during hospitalization. Treating with lisinopril 40 mg daily and Lopressor 50 mg twice daily. Added nifedipine 60 mg daily on 12/20; patient notably had allergy of apparent lower extremity swelling to amlodipine, will monitor for any side effects to nifedipine. Chronic medical conditions: ? Anxiety/depression/bipolar disorder: Stable. Continue home BuSpar, valbenazine, olanzapine at night. ? GERD: Continue home PPI. ? Hyperlipidemia: Continue home statin. ? Former tobacco use: Encouraged continued cessation. ? Carotid artery disease: Continue home aspirin. DVT prophylaxis: Lovenox CODE STATUS: Full code, verified Expected disposition: Home, 1 to 2 days Total clinical time spent by myself addressing the patient's medical issues, reviewing all the data, and collaborating with patient's care team: 35 minutes. Charges/Coding Visit Charges Inpatient E&M: 85616 Subs Hosp L2
[2023-12-21] MEDS: NIFEdipine 60 MG Tablet PO (18:58)
[2023-12-21] MEDS: Budesonide Respules 0.5 MG/2 ML AMPUL.NEB. INHALATION (19:37)
[2023-12-21] MEDS: Atorvastatin Calcium 10 MG Tablet PO (20:59)
[2023-12-21] MEDS: OLANZapine 2.5 MG Tablet 7.5 MG PO (21:05)
[2023-12-22] VITALS (7 sets, daily range): BP systolic 97–126; BP diastolic 53–72; PULSE 51–78; RESP 16–18; TEMP 36.6–37.2; O2SAT 42–99; BMI 24.5
[2023-12-22] MEDS: Ipratropium/Albuterol Sulfate 3 ML AMPUL.NEB INHALATION ×2 (06:46→12:35)
[2023-12-22] MEDS: Budesonide Respules 0.5 MG/2 ML AMPUL.NEB. INHALATION (06:46)
[2023-12-22] MEDS: predniSONE 20 MG Tablet 40 MG PO (08:03)
[2023-12-22] MEDS: Aspirin 81 MG TAB.CHEW PO (08:04)
[2023-12-22 08:19] LABS: Hematocrit 39.7 % (37-47); Hemoglobin 12.6 g/dL (12.0-15.0); Mean Corp Hgb Conc 31.7 g/dL (32-36); Mean Corpuscular Hgb 27.8 pg (27.0-32.0); Mean Corpuscular Volume 87.6 fL (81-99); Mean Platelet Vol. 8.4 fl (6.2-12.0); Platelet Count 399 K/mm3 (150-450); RBC Distribution Width CV 14.4 % (11.6-14.6); RBC Distribution Width SD 46.5 fl (35.1-43.9); Red Blood Count 4.53 M/mm3 (4.2-5.4); White Blood Count 11.6 K/mm3 (4.4-11.0)
[2023-12-22 08:39] LABS: Anion Gap 5 (5-15); BUN 21 mg/dL (7-18); BUN/Creat Ratio 22.6 RATIO (10-20); Calcium,Total 9.5 mg/dL (8.5-10.1); Chloride 102 mmol/L (98-107); Creatinine, Serum 0.93 mg/dL (0.55-1.02); EST Glomerular Filtration Rate 64 mL/min (>60); Est Glom Filt Rate - Afr Amer 78 mL/min (>60); Estimated Creatinine Clearance 52.77 ml/min; Glucose 94 mg/dL (74-106); Potassium 3.6 mmol/L (3.5-5.1); Sodium Level 140 mmol/L (136-145)
[2023-12-22] MEDS: VALBENAZINE TOSYLATE 80 MG CAPSULE PO (10:45)
[2023-12-22] MEDS: Doxycycline 100 MG CAPSULE PO (10:45)
[2023-12-22] MEDS: busPIRone 5 MG Tablet 10 MG PO (10:45)
[2023-12-22] MEDS: hydroCHLOROthiazide 25 MG Tablet PO (10:51)
[2023-12-22] MEDS: Lisinopril 40 MG Tablet PO (10:51)
[2023-12-22] MEDS: Furosemide 20 MG/2 ML VIAL IV (10:51)
[2023-12-22] MEDS: Enoxaparin 40 MG/0.4 ML Syringe SC (10:51)
[2023-12-22] MEDS: guaiFENesin/D-Methorphan TAB.SR.12H 2 TABLET PO (10:51)
[2023-12-22] MEDS: Metoprolol Tartrate 50 MG Tablet PO (10:52)
[2023-12-22] MEDS: Pantoprazole Sodium 40 MG Tablet PO (10:52)
[2023-12-22] MEDS: NIFEdipine 30 MG Tablet PO (10:52)
--- NOTE | 2023-12-22 14:12 | CASEMGMT ---
EDOUARD CM into pt room, pt is aware that she will need to wear 2 liters of oxygen continuously now. Pt states her son will bring in a portable tank to dc home on. Provided pt with a rx for outpt therapy as she is not sure where she will go for this. Provided her options, she states wherever my son says. She states he will assist her in setting this up. Pt denies any further homegoing needs.
--- NOTE | 2023-12-22 14:44 | DCINST_ITS ---
Discharge Instructions Diet Discharge Diet: No restrictions Activity Discharge Activity: No Restrictions Follow Up Care Test Results: Test results from this visit will be discussed in further detail at your follow-up appointment, if applicable. Discharge Plan Admission Admit Date/Time: 12/19/23 19:23 Primary Reason for Your Visit: shortness of breath, congestion Attending Provider: Quentin Alvarez Primary Care Provider: Valentin Paige Consulting Providers: Shayla Dubon; Salvador Simmons Discharge Orders/Prescriptions Prescriptions: No Action atorvastatin [Lipitor] 10 mg tablet 10 mg PO QDAY tiotropium bromide [Spiriva Respimat] 2.5 mcg/actuation mist 2 puff INHALATION QDAY omeprazole 40 mg capsule,delayed release(DR/EC) 40 mg PO BID olanzapine 7.5 mg tablet 7.5 mg PO QHS metoprolol tartrate 50 mg tablet 50 mg PO BID fluticasone furoate-vilanterol 200-25 mcg/dose blister with device 1 inh INHALATION DAILY lisinopril 40 mg tablet 40 mg PO BID Patient Comments: NOTIFIED THAT PT TAKES BID NOT DAILY omega-3 fatty acids 1,000 mg capsule 1,000 mg PO BID albuterol sulfate 90 mcg/actuation HFA aerosol inhaler 2 puff inhalation Q6H PRN (Reason: Sob &/Or Wheezing) budesonide 0.5 MG/2 ML suspension for nebulization 0.5 mg inhalation Q12H.RT 0RF doxycycline monohydrate 100 mg capsule 100 mg PO BID Qty: 14 0RF prednisone 10 mg tablet 10 mg PO DAILY Patient Comments: pt doesnt know dosage Rx Instructions: taper Ingrezza 80 mg capsule 80 mg PO DAILY azithromycin 250 mg tablet 250 mg PO DAILY Patient Comments: PT STATES SHE PROBABLY STARTED MED WHEN IT WAS FILLED ON 12/14/23, DOESNT REMEMBER buspirone 10 mg tablet 10 mg PO BID hydrochlorothiazide 12.5 mg capsule 12.5 mg PO DAILY furosemide 20 mg tablet 20 mg PO DAILY PRN (Reason: swelling in legs, shortness of breath) Qty: 30 11RF Referrals / Follow Up: Valentin Paige MD [Primary Care Provider] -
--- NOTE | 2023-12-22 14:44 | PCM.DC ---
Discharge Instructions Diet Discharge Diet: No restrictions Activity Discharge Activity: No Restrictions Follow Up Care Test Results: Test results from this visit will be discussed in further detail at your follow-up appointment, if applicable. Discharge Plan Admission Admit Date/Time: 12/19/23 19:23 Primary Reason for Your Visit: shortness of breath, congestion Attending Provider: Quentin Alvarez Primary Care Provider: Valentin Paige Consulting Providers: Shayla Dubon; Salvador Simmons Instructions Additional Instructions / Restrictions: Please start taking aspirin and nifedipine daily as noted below. Stop taking hydrochlorothiazide daily. Please take 4 more days of doxycycline to complete a 7-day course of antibiotics total. Please take the steroids with the taper as noted below. Use Mucinex as needed for congestion. Discharge Orders/Prescriptions Prescriptions: New aspirin 81 mg Tablet,Chewable 81 mg PO BREAKFAST 30 Days Qty: 30 2RF nifedipine 30 mg Tablet Extended Release 24hr 30 mg PO DAILY 30 Days Qty: 30 2RF Mucinex DM 30-600 mg Tablet Extended Release 12 Hr 2 tab PO BID 10 Days Qty: 40 0RF prednisone 10 mg tablet 10 mg PO DAILY Qty: 26 0RF Rx Instructions: Please take as follows: 40 mg x 2 days, 30 mg x 3 days, 20 mg x 3 days, 10 mg x 3 days, then off. doxycycline hyclate 100 mg capsule 100 mg PO BID 4 Days Qty: 8 0RF Continued atorvastatin [Lipitor] 10 mg tablet 10 mg PO QDAY tiotropium bromide [Spiriva Respimat] 2.5 mcg/actuation mist 2 puff INHALATION QDAY omeprazole 40 mg capsule,delayed release(DR/EC) 40 mg PO BID olanzapine 7.5 mg tablet 7.5 mg PO QHS metoprolol tartrate 50 mg tablet 50 mg PO BID fluticasone furoate-vilanterol 200-25 mcg/dose blister with device 1 inh INHALATION DAILY omega-3 fatty acids 1,000 mg capsule 1,000 mg PO BID albuterol sulfate 90 mcg/actuation HFA aerosol inhaler 2 puff inhalation Q6H PRN (Reason: Sob &/Or Wheezing) budesonide 0.5 MG/2 ML suspension for nebulization 0.5 mg inhalation Q12H.RT 0RF Ingrezza 80 mg capsule 80 mg PO DAILY azithromycin 250 mg tablet 250 mg PO DAILY Patient Comments: PT STATES SHE PROBABLY STARTED MED WHEN IT WAS FILLED ON 4/25/24, DOESNT REMEMBER buspirone 10 mg tablet 10 mg PO BID furosemide 20 mg tablet 20 mg PO DAILY PRN (Reason: swelling in legs, shortness of breath) Qty: 30 11RF Changed lisinopril 40 mg tablet 40 mg PO DAILY 30 Days Qty: 30 0RF Patient Comments: DR NOTIFIED THAT PT TAKES BID NOT DAILY Discontinued doxycycline monohydrate 100 mg capsule 100 mg PO BID Qty: 14 0RF prednisone 10 mg tablet 10 mg PO DAILY Patient Comments: pt doesnt know dosage Rx Instructions: taper hydrochlorothiazide 12.5 mg capsule 12.5 mg PO DAILY Referrals / Follow Up: Valentin Paige MD [Primary Care Provider] - Disposition Disposition (needs filled in before D/C Order can be placed): Home, Self Care
--- NOTE | 2023-12-22 14:53 | PCM.DC.SUM ---
Providers Date of Admission: 12/19/23 Date of Discharge: 12/22/23 Primary Care Physician: Dr. Valentin Paige MD Reason For Visit: ACUTE HYPOXIA, ACUTE COPD EXACERBATION, HYPOKALEMI Diagnosis Discharge Diagnosis (1) Acute exacerbation of chronic obstructive pulmonary disease: Status: Chronic Code(s): J44.1 - Chronic obstructive pulmonary disease with (acute) exacerbation (2) Hypoxia: Status: Inactive Code(s): R09.02 - Hypoxemia (3) HTN (hypertension): Status: Chronic Code(s): I10 - Essential (primary) hypertension Medications at Discharge Home Medications atorvastatin 10 mg tablet (Lipitor) 10 mg PO QDAY CHOLESTEROL 04/03/18 omeprazole 40 mg capsule,delayed release 40 mg PO BID GERD 04/03/18 tiotropium bromide 2.5 mcg/actuation mist for inhalation (Spiriva Respimat) 2 puff inhalation QDAY COPD 04/03/18 albuterol sulfate 90 mcg/actuation aerosol inhaler 2 puff inhalation Q6H PRN Sob &/Or Wheezing 04/09/19 fluticasone furoate 200 mcg-vilanterol 25 mcg/dose inhalation powder 1 inh inhalation DAILY COPD 04/09/19 metoprolol tartrate 50 mg tablet 50 mg PO BID BP 04/09/19 olanzapine 7.5 mg tablet 7.5 mg PO QHS BIPOLAR 04/15/19 budesonide 0.5 mg/2 mL suspension for nebulization 0.5 mg (2 mL) inhalation Q12H.RT 05/24/19 omega-3 fatty acids 1,000 mg capsule 1,000 mg PO BID 07/08/21 furosemide 20 mg tablet 20 mg PO DAILY PRN swelling in legs, shortness of breath #30 tabs 03/28/23 azithromycin 250 mg tablet 250 mg PO DAILY 12/19/23 buspirone 10 mg tablet 10 mg PO BID 12/19/23 valbenazine 80 mg capsule (Ingrezza) 80 mg PO DAILY 12/19/23 aspirin 81 mg chewable tablet 81 mg PO BREAKFAST 30 days #30 tabs 12/22/23 dextromethorphan-guaifenesin 30 mg-600 mg tablet extended [id number] hr (Mucinex DM) 2 tab PO BID 10 days #40 tabs 12/22/23 doxycycline hyclate 100 mg capsule 100 mg PO BID 4 days #8 caps 12/22/23 lisinopril 40 mg tablet 40 mg PO DAILY BP 30 days #30 tabs 12/22/23 nifedipine 30 mg tablet,extended release 24 hr 30 mg PO DAILY 30 days #30 tabs 12/22/23 prednisone 10 mg tablet 10 mg PO DAILY #26 tabs 12/22/23 Hospital Course Operations None Procedures EKG and - (Chest x-ray, CT brain without contrast) Summary of Care Provided Minutes Spent on Discharge: 35 Hospital Course: Patient is a 63-year-old female who presented [facility] ED on 12/19/2023 with worsening shortness of breath with wheezing and productive cough. Hospital course as noted below. Patient discharged home with no therapy needs in stable condition on 12/21. 1. Acute exacerbation of COPD; acute hypoxia on chronic hypoxic respiratory failure, resolved Wears 2 L nasal cannula at baseline at home. Chest x-ray on admit nonacute. Respiratory PCR panel negative. Urine antigens negative. Was requiring up to 4 L nasal cannula on admission to maintain appropriate oxygen saturations. ?Patient had good improvement in symptoms on IV steroids, antibiotics and scheduled DuoNebs. Returned to baseline 2 L nasal cannula by 12/20. O2 ambulatory test done on 12/21, stable on home oxygen requirements. Continue doxycycline on discharge to complete 7-day course of antibiotics total. Prednisone taper prescribed on discharge; plan is for 40 mg x 2 more days, then 30 mg x 3 days, 20 mg x 3 days, 10 mg x 3 days and then off steroids. Continue home long-acting inhalers. Outpatient follow-up with pulmonology as needed. 2. Acute toxic encephalopathy, resolved ? Noted to be more lethargic and confused on morning of 12/20. CT head nonacute. ABG normal. Vitals remained stable. Most likely secondary to high-dose IV steroids started on admission, as patient improved over the course of the day on 12/20 once steroids were discontinued. Back to baseline on 12/21. 3. Mild acute on chronic debility ? PT/OT/case management following. Patient lives at home alone but patient's son noted she has seemed more debilitated recently. Patient initially with borderline therapy scores, however did well on day of discharge and okay for home on 12/21 with plan for outpatient physical therapy. 4. Hyponatremia, hypochloremia, hypokalemia, all resolved ? Sodium 126, chloride 83, potassium 2.6 on admit. Suspect secondary to dehydration and recent poor p.o. intake. Resolved with IV fluid resuscitation and potassium replacement. Monitoring BMP daily. 5. Hypertension ? Reported home regimen of lisinopril 40 mg twice daily, hydrochlorothiazide 12.5 mg daily, Lopressor 50 mg twice daily. Unclear on reason for lisinopril twice daily as max recommended dose is 40 mg daily. Hydrochlorothiazide held on admit due to hyponatremia. Added nifedipine 30 mg daily with good blood pressure control. Notably has allergy listed to amlodipine of lower extremity swelling, no issues with taking had been going forward. Continue home Lopressor and lisinopril on discharge, along with nifedipine started during this admission. Hold hydrochlorothiazide on discharge. Chronic medical conditions: ? Anxiety/depression/bipolar disorder: Stable. Continue home BuSpar, valbenazine, olanzapine at night. ? GERD: Continue home PPI. ? Hyperlipidemia: Continue home statin. ? Former tobacco use: Encouraged continued cessation. ? Carotid artery disease: Continue home aspirin. Total clinical time spent by myself addressing the patient's medical issues, reviewing all the data, and collaborating with patient's care team: 35 minutes. Physical Exam Const alert and no apparent distress Constitutional Narrative: Elderly female, sitting up in bed, moderately lethargic and fatigued appearing, otherwise in no acute distress. General Appearance: cooperative and comfortable HEENT normocephalic, head/scalp atraumatic, hearing grossly normal bilaterally and nasal mucous membranes and turbinates normal Eyes PERRL, EOMs intact bilaterally and conjunctivae normal Neck full ROM Chest inspection of chest normal Resp normal respiratory effort and no use of accessory muscles Resp Narrative: Very mild wheezing noted in upper airways bilaterally, improved. Otherwise good air movement throughout bilaterally. Breathing comfortably on 2 L nasal cannula with good oxygen saturations. Cardio regular rate, regular rhythm, no murmurs and peripheral pulses 2+ throughout GI normal to inspection, nondistended, normoactive bowel sounds, soft to palpation, non-tender and non-distended Back/Spine normal ROM Extremity normal to inspection, full ROM and no pedal edema Skin no rashes or lesions noted Neuro moves all extremities and no focal motor deficits Speech: speech normal Medical Records Data Medical Nutrition Assessment Dietitian: Malnutrition Criteria Met Start: 12/20/23 10:52 Freq: Status: Active Protocol: Document 12/20/23 10:52 LO (Rec: 12/20/23 10:53 LO [id number]) Nutrition Malnutrition Evidence of Malnutrition Exists Yes Malnutrition (severe): Acute Illness/Injury Evidenced By Suboptimal Energy Intake ( Severe),Weight Loss (Severe) Clinical Problem Acute Disease or Injury Related Malnutrition Etiology severe related to suboptimal appetite and increased nutrition needs due to COPD exacerbation Signs/Symptoms as evidenced by PO intakes <50 % of estimated nutrition needs for >5 days and 3.4% weight loss in 1 week Status Active Problem Recommendation Dietitian Recommendations/Changes Continue Cardiac diet to manage medical conditions. Recommend liberalizing diet to Regular -LAURA if PO intakes remain poor. RD will order 120mL Ensure Plus High Protein chocolate 4x daily with medpass to provide supplemental energy and to promote weight maintenance. Weight / BMI Weight Weight: 65.1 kg Body Mass Index (BMI) 24.5 ABG / Lab / Microbiology Data 12/22/23 08:05 12/22/23 08:05 Laboratory: Laboratory Results - last 24 hr 12/22/23 08:05: WBC 11.6 H, RBC 4.53, Hgb 12.6, Hct 39.7, MCV 87.6, MCH 27.8, MCHC 31.7 L, RDW Std Deviation 46.5 H, RDW Coeff of Ryan 14.4, Plt Count 399, MPV 8.4, Sodium 140, Potassium 3.6, Chloride 102, Carbon Dioxide 33.0 H, Anion Gap 5, BUN 21 H, Creatinine 0.93, Estim Creat Clear Calc 52.77, Est GFR (MDRD) Af Amer 78, Est GFR (MDRD) Non-Af 64, BUN/Creatinine Ratio 22.6 H, Glucose 94, Calcium 9.5 Microbiology: Microbiology 12/19/23 22:55 Mucosa - Nasopharyngeal Respiratory Panel (PCR) - Final 12/19/23 23:00 Urine, Clean Catch Legionella Antigen - Final 12/19/23 23:00 Urine, Clean Catch Streptococcus pneumoniae Antigen (M - Final D/C Instructions Discharge Diet: No restrictions Meaningful Use Info Meaningful Use Meaningful Use Diagnoses (Choose all that apply): None applicable Ischemic Stroke Statin Dosing Therapy Reference: STATIN DOSE THERAPY REFERENCE: * Patients > 75 years receive moderate or high dose statin therapy. * Patients 75 years or YOUNGER should receive HIGH intensity statin dose unless contraindicated. You will be required to document reason for non-treatment if statin daily dose does not meet guidelines. HIGH DOSE STATIN THERAPY DAILY Atorvastatin > than or = to 40 mg Rosuvastatin > than or = to 20 mg Amlodipine + Atorvastatin > than or = to 2.5/40 mg Ezetimibe + Simvastatin 10/80 mg Simvastatin 80mg Discharge Plan Admission Admit Date/Time: 12/19/23 19:23 Primary Reason for Your Visit: shortness of breath, congestion Attending Provider: Quentin Alvarez Primary Care Provider: Valentin Paige Consulting Providers: Shayla Dubon; Salvador Simmons Instructions Additional Instructions / Restrictions: Please start taking aspirin and nifedipine daily as noted below. Stop taking hydrochlorothiazide daily. Please take 4 more days of doxycycline to complete a 7-day course of antibiotics total. Please take the steroids with the taper as noted below. Use Mucinex as needed for congestion. Discharge Orders/Prescriptions Prescriptions: New aspirin 81 mg Tablet,Chewable 81 mg PO BREAKFAST 30 Days Qty: 30 2RF nifedipine 30 mg Tablet Extended Release 24hr 30 mg PO DAILY 30 Days Qty: 30 2RF Mucinex DM 30-600 mg Tablet Extended Release 12 Hr 2 tab PO BID 10 Days Qty: 40 0RF prednisone 10 mg tablet 10 mg PO DAILY Qty: 26 0RF Rx Instructions: Please take as follows: 40 mg x 2 days, 30 mg x 3 days, 20 mg x 3 days, 10 mg x 3 days, then off. doxycycline hyclate 100 mg capsule 100 mg PO BID 4 Days Qty: 8 0RF Continued atorvastatin [Lipitor] 10 mg tablet 10 mg PO QDAY tiotropium bromide [Spiriva Respimat] 2.5 mcg/actuation mist 2 puff INHALATION QDAY omeprazole 40 mg capsule,delayed release(DR/EC) 40 mg PO BID olanzapine 7.5 mg tablet 7.5 mg PO QHS metoprolol tartrate 50 mg tablet 50 mg PO BID fluticasone furoate-vilanterol 200-25 mcg/dose blister with device 1 inh INHALATION DAILY omega-3 fatty acids 1,000 mg capsule 1,000 mg PO BID albuterol sulfate 90 mcg/actuation HFA aerosol inhaler 2 puff inhalation Q6H PRN (Reason: Sob &/Or Wheezing) budesonide 0.5 MG/2 ML suspension for nebulization 0.5 mg inhalation Q12H.RT 0RF Ingrezza 80 mg capsule 80 mg PO DAILY azithromycin 250 mg tablet 250 mg PO DAILY Patient Comments: PT STATES SHE PROBABLY STARTED MED WHEN IT WAS FILLED ON 12/14/23, DOESNT REMEMBER buspirone 10 mg tablet 10 mg PO BID furosemide 20 mg tablet 20 mg PO DAILY PRN (Reason: swelling in legs, shortness of breath) Qty: 30 11RF Changed lisinopril 40 mg tablet 40 mg PO DAILY 30 Days Qty: 30 0RF Patient Comments: DR NOTIFIED THAT PT TAKES BID NOT DAILY Discontinued doxycycline monohydrate 100 mg capsule 100 mg PO BID Qty: 14 0RF prednisone 10 mg tablet 10 mg PO DAILY Patient Comments: pt doesnt know dosage Rx Instructions: taper hydrochlorothiazide 12.5 mg capsule 12.5 mg PO DAILY Referrals / Follow Up: Valentin Paige MD [Primary Care Provider] - Disposition Disposition (needs filled in before D/C Order can be placed): Home, Self Care Charges/Coding Visit Charges Inpatient E&M: 07413 Disch Hosp >30min
--- NOTE | 2023-12-22 14:59 | CHAPLAIN ---
Type of Pastoral Visit _x__ Initial Visit ___ Follow-up Visit ___ On-call Visit ___ General Patient Visit ___ Spiritual Assessment ___ Family Conference ___ Bereavement ___ Rapid Response ___ Code Blue ___ Other (describe below) Pastoral Care Referral From _x__ Patient ___ Family ___ Nurse ___ Physician ___ Manager Publishing ___ Ply Cutter ___ Other (describe below) Sacrament/Intervention ___ Active listening ___ Anointing ___ Oriental Orthodox ___ Bereavement ___ Communion ___ Christianne exploration ___ ___ Life review ___ Prayer ___ Reconciliation ___ Sacrament of Sick x__ Supportive presence ___ Wedding ___ Other (describe below) Pastoral Comments first attempt the patient was sleeping; the second attempt the patient was sleeping but awoke easily; pt is offered support but she states that she is fine and is going home today; pt says she has no needs, lives alone but can call someone if I need it, and gives assurances that she will be fine
--- NOTE | 2023-12-22 15:36 | PHA.DC_ITS ---
Pharmacy [facility] Pharmacy Service has performed discharge medication reconciliation and counseling for this patient. The patient's discharge medication list was reviewed for discrepancies and discrepancies were resolved. The patient was counseled on the following discharge medications and changes in medications for homegoing were reviewed. The Reason for Use, instructions for use, and potential side effects were reviewed for all new medications. The patient's questions regarding all of their medications were answered. 1. Doxycycline 100 mg PO BID x 4 days 2. Dextromethorphan/guaifenesin 30-600 2 tabs PO BID 3. Nifedipine 30 mg PO daily 4. Prednisone taper The patient was able to verbally demonstrate an understanding of their discharge medications. Medications at Discharge Home Medications atorvastatin 10 mg tablet (Lipitor) 10 mg PO QDAY CHOLESTEROL 04/03/18 omeprazole 40 mg capsule,delayed release 40 mg PO BID GERD 04/03/18 tiotropium bromide 2.5 mcg/actuation mist for inhalation (Spiriva Respimat) 2 puff inhalation QDAY COPD 04/03/18 albuterol sulfate 90 mcg/actuation aerosol inhaler 2 puff inhalation Q6H PRN Sob &/Or Wheezing 04/09/19 fluticasone furoate 200 mcg-vilanterol 25 mcg/dose inhalation powder 1 inh inhalation DAILY COPD 04/09/19 metoprolol tartrate 50 mg tablet 50 mg PO BID BP 04/09/19 olanzapine 7.5 mg tablet 7.5 mg PO QHS BIPOLAR 04/15/19 budesonide 0.5 mg/2 mL suspension for nebulization 0.5 mg (2 mL) inhalation Q12H.RT 05/24/19 omega-3 fatty acids 1,000 mg capsule 1,000 mg PO BID 07/08/21 furosemide 20 mg tablet 20 mg PO DAILY PRN swelling in legs, shortness of breath #30 tabs 03/28/23 azithromycin 250 mg tablet 250 mg PO DAILY 12/19/23 buspirone 10 mg tablet 10 mg PO BID 12/19/23 valbenazine 80 mg capsule (Ingrezza) 80 mg PO DAILY 12/19/23 aspirin 81 mg chewable tablet 81 mg PO BREAKFAST 30 days #30 tabs 12/22/23 dextromethorphan-guaifenesin 30 mg-600 mg tablet extended [id number] hr (Mucinex DM) 2 tab PO BID 10 days #40 tabs 12/22/23 doxycycline hyclate 100 mg capsule 100 mg PO BID 4 days #8 caps 12/22/23 lisinopril 40 mg tablet 40 mg PO DAILY BP 30 days #30 tabs 12/22/23 nifedipine 30 mg tablet,extended release 24 hr 30 mg PO DAILY 30 days #30 tabs 12/22/23 prednisone 10 mg tablet 10 mg PO DAILY #26 tabs 12/22/23
--- NOTE | 2024-01-02 11:04 | CCN.REFER ---
PATIENT NOT RETURNING ANY CALLS TO ARRANGE TIME TO SET UP PATIENT LINK DEVICE. MULTIPLE VM LEFT SINCE 12/24.
== END 2023-12-22 15:38 | disposition home or self-care (01) | DRG 190 ==
LOC: ED 19:07 → MS3 20:38
PROVIDERS: Internal Medicine; Admitting Provider Family Medicine; Emergency Provider Emergency Medicine; PCP Family Medicine; Visit Provider Hospitalist
DX: J44.1 Chronic obstructive pulmonary disease with (acute) exacerbation (principal); E43 Unspecified severe protein-calorie malnutrition; G92.8 Other toxic encephalopathy; J96.11 Chronic respiratory failure with hypoxia; E87.3 Alkalosis; E87.1 Hypo-osmolality and hyponatremia; E87.8 Other disorders of electrolyte and fluid balance, not elsewhere classified; F31.9 Bipolar disorder, unspecified; I10 Essential (primary) hypertension; I77.9 Disorder of arteries and arterioles, unspecified; E78.5 Hyperlipidemia, unspecified; K21.9 Gastro-esophageal reflux disease without esophagitis; E87.6 Hypokalemia; J98.01 Acute bronchospasm; F41.9 Anxiety disorder, unspecified; E86.0 Dehydration; Z87.891 Personal history of nicotine dependence; Z79.82 Long term (current) use of aspirin; Z79.51 Long term (current) use of inhaled steroids; T50.3X5A Adverse effect of electrolytic, caloric and water-balance agents, initial encounter; Z68.24 Body mass index [BMI] 24.0-24.9, adult
CPT/HCPCS: 36415; 36600; 70450; 71046; 80048; 80053; 82803; 83605; 83735; 84145; 84484; 85025; 85027; 87449; 87633; 93005; 94640; 94668; 97162; 97166; 97535; 99285; 99406; J7030; A4216; J1940

== ENCOUNTER → 2024-04-18 | Outpatient (CLI) | payer MEDICARE, SELFPAY ==
--- NOTE | 2024-04-18 09:51 | ECHOD_ITS ---
Reason For Study: BICUSPID AORTIC VALVE Procedure This was a 2D Doppler, Color Flow transthoracic echocardiogram. Exam performed in department. Left Ventricle Normal LV size. The left ventricular ejection fraction is 65 %. Stage 1 diastolic dysfunction. No regional wall motion abnormalities noted. Right Ventricle Normal RV size. Normal systolic function. Atria Normal left atrium. Normal right atrium. Mitral Valve Normal mitral valve. Tricuspid Valve Normal tricuspid valve. Aortic Valve Bicuspid aortic valve. Mild focal aortic valve calcification. Peak aortic valve gradient 26 mmHg. Mean aortic valve gradient 14 mmHg. Mild (1+) aortic valve insufficiency. Pulmonic Valve Normal pulmonic valve. Great Vessels Normal aortic root. The pulmonary artery is normal size. Normal inferior vena cava. Pericardium/Pleural No pericardial effusion. MMode/2D Measurements & Calculations LVIDd: 3.7 cm IVSd: 1.5 cm LVOT diam: 1.9 cm LVIDs: 2.5 cm LVPWd: 1.0 cm LVOT area: 2.9 cm2 RVDd: 3.9 cm FS: 32.8 % Ao root diam: 2.6 cm LAV(MOD-bp): 49.5 ml LVAd ap4: 27.2 cm2 LAV(MOD-bp) Indexed: 29.2 ml/m2 LVLd ap4: 8.2 cm LAV(MOD-sp2): 51.7 ml EDV(MOD-sp4): 74.9 ml LAV(MOD-sp4): 41.3 ml EDV(sp4-el): 76.5 ml LVAs ap4: 12.2 cm2 LVLs ap4: 6.8 cm ESV(MOD-sp4): 19.5 ml ESV(sp4-el): 18.6 ml EF(MOD-sp4): 73.9 % EF(sp4-el): 75.7 % LVAd ap2: 25.0 cm2 SV(MOD-sp4): 55.4 ml SV(MOD-sp2): 42.9 ml LVLd ap2: 8.3 cm EDV(MOD-sp2): 62.9 ml EDV(sp2-el): 64.0 ml LVAs ap2: 12.9 cm2 LVLs ap2: 7.0 cm ESV(MOD-sp2): 20.0 ml ESV(sp2-el): 20.3 ml EF(MOD-sp2): 68.2 % SV(sp4-el): 57.9 ml LA dimension(2D): 3.9 cm LA A4 area: 15.7 cm2 RA A4 area: 12.2 cm2 TAPSE: 1.9 cm Time Measurements MV dec time: 0.17 sec Doppler Measurements & Calculations MV E max ilir: 47.1 cm/sec Lat Peak E' Ilir: 8.1 cm/sec Med Peak E' Ilir: 7.8 cm/sec MV A max ilir: 59.8 cm/sec E/E' lat: 5.8 E/E' med: 6.0 MV E/A: 0.79 Ao V2 max: 255.0 cm/sec AI max ilir: 458.3 cm/sec MV dec slope: 278.5 cm/sec2 Ao max P.0 mmHg AI max P.1 mmHg Ao V2 mean: 175.2 cm/sec Ao mean P.6 mmHg AI dec slope: 271.2 cm/sec2 Ao V2 VTI: 52.8 cm AI P1/2t: 495.0 msec AV (velocity ratio): 0.50 JOANN(I,D): 1.4 cm2 JOANN(V,D): 1.5 cm2 LV V1 max: 133.6 cm/sec SV(LVOT): 75.9 ml PA V2 max: 74.9 cm/sec LV V1 max P.1 mmHg PA max PG (full): 0.41 mmHg LV V1 mean P.6 mmHg LV V1 mean: 90.4 cm/sec LV V1 VTI: 26.5 cm TR max ilir: 179.2 cm/sec TR max P.8 mmHg ECHO/Echo Complete Interpretation Summary The left ventricular ejection fraction is 65 %. Normal LV size. Stage 1 diastolic dysfunction. Mild focal aortic valve calcification. Bicuspid aortic valve. Mean aortic valve gradient 14 mmHg. Mild (1+) aortic valve insufficiency. Ordering Physician: Rebeka Ragland Referring Physician: Rebeka Ragland Performed By: Tracy Crockett RDCS
== END | disposition home or self-care (01) ==
LOC: CVS 09:46
PROVIDERS: PCP Family Medicine; Referring Provider Nurse Practitioner Gerontology; Visit Provider Nurse Practitioner Gerontology
DX: Q23.1 Congenital insufficiency of aortic valve (principal)
CPT/HCPCS: 93306

== ENCOUNTER 2025-01-27 15:33 | Emergency (ER) | payer MEDICARE, MEDICAID, SELFPAY ==
[2025-01-27 15:34] VITALS: BP 133/73; PULSE 78; RESP 16; TEMP 36.4; O2SAT 99
--- NOTE | 2025-01-27 17:21 | CT_ITS ---
PROCEDURE: SPINE LUMBAR WITHOUT CONTRAST 01/27/2025 REASON FOR EXAM: LOW BACK PAIN and urinary incontinence x3 weeks. TECHNIQUE: Lumbar spine CT without contrast. Coronal and Sagittal reconstruction series were provided. One or more dose reduction techniques were used (e.g., Automated exposure control, adjustment of the mA and/or kV according to patient size, use of iterative reconstruction technique COMPARISON: None. RADIATION DOSE SUMMARY: CTDlvol: 15 mGy DLP: 530 mGycm FINDINGS: Vertebrae: No acute osseous fracture. The vertebral body heights are maintained. Bone island within the anterior S1 vertebral body. Alignment: No traumatic listhesis. Discs: Mild multilevel degenerative disc disease at L2-3. Sacrum: Mild arthrosis. The left kidney is surgically absent. Moderate calcific plaque of the aortoiliac vessels. Prominent right colic node (series 3, image 69). CT/Spine Lumbar without Contrast IMPRESSION: NO ACUTE LUMBAR FRACTURE. Reading Location: [id number]
[2025-01-27 17:34] VITALS: BP 139/65; PULSE 67
[2025-01-27] MEDS: Ondansetron 4 MG/2 ML Vial IV (17:42)
[2025-01-27] MEDS: Ketorolac 15 MG/ML Vial IV (17:43)
[2025-01-27] MEDS: Morphine 4 MG/ML Syringe IV (17:44)
[2025-01-27] MEDS: dexAMETHasone 4 MG/ML Vial IV (17:45)
[2025-01-27 17:47] LABS: Bacteria 0 SEEN /hpf (None Seen); Mucous, Urine 0 SEEN /hpf (<or=2+)
[2025-01-27 17:54] LABS: Hematocrit 34.2 % (37-47); Hemoglobin 11.1 g/dL (12.0-15.0); Mean Corp Hgb Conc 32.5 g/dL (32-36); Mean Corpuscular Hgb 27.2 pg (27.0-32.0); Mean Corpuscular Volume 83.8 fL (81-99); Mean Platelet Vol. 9.1 fl (6.2-12.0); Platelet Count 320 K/mm3 (150-450); RBC Distribution Width CV 14.5 % (11.6-14.6); Red Blood Count 4.08 M/mm3 (4.2-5.4); White Blood Count 7.4 K/mm3 (4.4-11.0)
[2025-01-27 18:08] LABS: Color, Urine Straw (Yellow); Glucose, Dipstick Normal (Normal); Ketone-Dipstick Negative (Negative); Leukocyte Esterase-Dipstick 25 /ul (Negative); Nitrite-Dipstick Negative (Negative); Occult Blood-Urine Negative /ul (Negative); Protein-Dipstick Negative (Negative); Urine Bilirubin Dipstick Negative (Negative); Urine Clarity Clear (Clear); Urine Urobilinogen Normal (Normal)
[2025-01-27 18:27] LABS: Anion Gap 12 (5-15); BUN 10 mg/dL (4-19); BUN/Creat Ratio 11.8 RATIO (10-20); Calcium,Total 9.1 mg/dL (7.6-11.0); Carbon Dioxide 23.5 mmol/L (21.0-32.0); Chloride 104 mmol/L (98-108); Creatinine, Serum 0.82 mg/dL (0.70-1.20); EST Glomerular Filtration Rate 79 (>60); Glucose 102 mg/dL (70-99); Potassium 3.6 mmol/L (3.3-5.1); Sodium Level 140 mmol/L (133-145)
[2025-01-27 18:41] LABS: Red Blood Cells-Urine 0-5 SEEN /hpf (0-5); Squamous Epithelial Cells - UA 0-5 SEEN /hpf (5-10); White Blood Cells 0-5 SEEN /hpf (0-5)
--- NOTE | 2025-01-27 18:42 | EDS_ITS ---
HPI HPI - Female History of Present Illness Chief Complaint: Complaint PFSH PFSH Medical History (Reviewed 03/19/24 @ 11:43 by Rebeka Ragland TOURING PRODUCTION MANAGER, TOURING PRODUCTION MANAGER-C) Anxiety and depression Nonrheumatic aortic (valve) insufficiency Non-rheumatic aortic sclerosis Bipolar disorder Bicuspid aortic valve Essential hypertension Asthma Hemorrhoid GERD (gastroesophageal reflux disease) Personal history of colonic polyps Dyslipidemia Bilateral carotid artery stenosis without cerebral infarction COPD (chronic obstructive pulmonary disease) Home Medications ?Medication ?Instructions ?Recorded ?Last Taken ?Type atorvastatin 10 mg tablet (Lipitor) 10 mg PO QDAY CHOL ESTEROL 04/03/18 12/19/23 History omeprazole 40 mg capsule,delayed 40 mg PO BID GERD 12/19/23 History release tiotropium bromide 2.5 2 puff inhalation QDAY COPD 04/03/18 12/19/23 History mcg/actuation mist for inhalation (Spiriva Respimat) albuterol sulfate 90 mcg/actuation 2 puff inhalation Q 6H PRN Sob &/Or 04/09/19 05/20/19 03:30 History aerosol inhaler Wheezing fluticasone furoate 200 1 inh inhalation DAILY COPD 04/09/19 12/19/23 History mcg-vilanterol 25 mcg/dose inhalation powder metoprolol tartrate 50 mg tablet 50 mg PO BID BP 04/0912/19/23 History budesonide 0.5 mg/2 mL suspension 0.5 mg (2 mL) inhala tion Q12H.RT 05/24/19 12/19/23 Rx for nebulization buspirone 10 mg tablet 10 mg PO BID 12/19/23 History aspirin 81 mg chewable tablet 81 mg PO BREAKFAST 30 da ys #30 tabs 12/22/23 Unknown Rx lisinopril 40 mg tablet 40 mg PO DAILY BP 30 days #3 0 tabs 12/22/23 12/19/23 Rx aripiprazole 5 mg tablet 5 mg PO DAILY 01/27/25 Unkno wn History budesonide 160 mcg-glycopyr 9 inh inhalation 01/27/25 Unknown History mcg-formot 4.8 mcg/actuation HFA inhaler (Breztri Aerosphere) furosemide 20 mg tablet 20 mg PO DAILY 01/27/25 Unkn own History nifedipine 60 mg tablet,extended mg PO 06/09/25 Unknow n History release 24 hr potassium chloride 20 mEq 20 meq PO DAILY 01/27/25 Unk nown History tablet,extended release(part/cryst) valbenazine 40 mg capsule 40 mg PO DAILY 01/27/25 Unkn own History (Ingrezza) Allergy/AdvReac Type Severity Reaction Status Date / Time amlodipine (From Norvasc) Allergy Intermediate Swelling Verified 03/19/24 11:43 fluoxetine (From Prozac) Allergy Intermediate mental Verified 03/19/24 11:43 status change Family History (Reviewed 03/19/24 @ 11:43 by Rebeka Ragland TOURING PRODUCTION MANAGER, TOURING PRODUCTION MANAGER-C) Mother Diabetes Heart disease Hypertension CHF (congestive heart failure) Father Heart disease Diabetes Hypertension Ulcer CHF (congestive heart failure) Brother Kidney disease Sister Cancer Family History no significant family his Surgical History (Reviewed 03/19/24 @ 11:43 by Rebeka Ragland TOURING PRODUCTION MANAGER, TOURING PRODUCTION MANAGER-C) History of fracture of clavicle History of shoulder surgery History of colonoscopy (~2014) History of tubal ligation History of kidney donation Social History household members: family Smoking Status: Former smoker how long ago did patient quit smoking: Quit 10 yrs prior, smoked 2 ppd since teen until quit. alcohol intake: current alcohol intake frequency: holidays/special occasions only Alcohol type: wine substance use type: does not use caffeine: Yes Type: carbonated beverages Number of servings: 1, coffee Number of servings: 2 and tea Number of servings: 2 EXAM Physical Exam Const Vital Signs: 01/27/25 15:34 01/27/25 17:34 Temperature 97.6 F L Temperature Source Oral Pulse Rate 78 67 Respiratory Rate 16 Blood Pressure 133/73 H 139/65 H Blood Pressure Mean 93 89 Pulse Ox 99 Oxygen Delivery Method Room Air MDM MDM MDM Narrative Medical decision making narrative: HISTORY OF PRESENT ILLNESS: Chief complaint: Back pain 65-year-old female presents with acute on chronic back pain. No falls or trauma noted. States pains are worse with several days. She notes urge incontinence but denies uncontrollable bowel or bladder incontinence, urinary retention, fever, diabetes or history of back surgery. She is concerned by her kidney because she only has 1 secondary to kidney donation to her brother. She denies frequency urgency or dysuria. Denies history of kidney stones REVIEW OF SYSTEMS: Pertinent positives: Back pain Pertinent negatives: Syncope, urgency PHYSICAL EXAM: Nursing triage notes reviewed, Vital signs reviewed Constitutional: please see [facility] HENT: MMM Eyes: Pupils equal round and reactive to light, Extraocular muscles intact Neck: No stridor, no JVD, full neck ROM Lungs: Clear to auscultation, No wheezing or rales. No increased work of breathing, no conversational dyspnea, no accessory muscle use, no nasal flaring. No respiratory distress noted Heart: Regular rate and rhythm, No murmurs, No rubs and No gallops, 2+ distal pulses (radial, femoral, posterior tibial) in all extremities Abdomen: Soft, there is no tenderness, rigidity, rebound or guarding, no obvious peritoneal signs, no palpable pulsatile abdominal masses, no auscultated abdominal bruit : No CVAT Extremities: No edema Neuro: Intact sensation L1-S1 dermatomal distributions. Intact 5/5 strength in hip flexion (T12-L3). Knee extension (L2-L4). Ankle dorsiflexion (L4-L5). Ankle plantar flexion (S1). Great toe extension (L5). 2+ patellar and Achilles DTRs. Skin: No rash or lesions noted MEDICAL DECISION MAKING: Chief Complaint: please see HPI External records reviewed: Reviewed prior imaging studies Factors affecting care: Hypertension, Social determinants of health: none History obtained from others: Daughter Consults: none [facility] Narrative: The patient was initially hemodynamically stable, afebrile and nontoxic- appearing. Exam without focal neurologic deficits. I considered the following differential diagnosis: Musculoskeletal back pain, space-occupying lesion of the spine, lumbar fracture, muscle myeloma, UTI, pyelonephritis ALL IMAGES (IF OBTAINED) HAVE BEEN PERSONALLY REVIEWED AND INTERPRETED BY MYSELF. CT scan lumbar spine shows no evidence of obvious bony abnormality. CBC with leukocytosis, mild anemia, no thrombocytopenia BMP without evidence of significant electrolyte abnormalities, no anion gap, no acute kidney injury. Urinalysis shows no evidence of urinary inflammation suggestive of UTI, pyelonephritis The patient's history and physical exam not consistent with a space-occupying lesion of the spine given lack of back pain and red flag symptoms. Likely musculoskeletal in origin. Will prescribe steroids, short course of narcotics and recommend Tylenol ibuprofen. Recommend close outpatient follow-up with PCP for further evaluation and treatment The synthesis of the patient's history, physical exam, labs were to suggest no acute life-limiting etiology. The patient and/or family, caregivers express understanding. The patient and/or family, caregivers agrees with the plan. Shared decision making: I will have a discussion with the patient and or visitors regarding risk/benefits of further testing or admission. They will be made aware of of the risk/benefits inherent in this decision they will be given the opportunity to voice understanding. Total critical care time today provided was at least 0 minutes. This excludes separately billable procedures. Critical care time (if documented) is secondary to the patient having high probability of clinically significant/life threatening deterioration in the patient's condition which required my urgent intervention. Impression: 1. Acute on chronic back pain Dispo: Discharge home This note was generated with [employer] dictation software. It may contain incorrect words, spelling, and punctuation that were not noted in review of the chart prior to signing. Lab Data Labs: Laboratory Results - last 24 hr 01/27/25 17:30 WBC 7.4 RBC 4.08 L Hgb 11.1 L Hct 34.2 L MCV 83.8 MCH 27.2 MCHC 32.5 RDW Std Deviation 44.0 H RDW Coeff of Ryan 14.5 Plt Count 320 MPV 9.1 Sodium 140 Potassium 3.6 Chloride 104 Carbon Dioxide 23.5 Anion Gap 12 BUN 10 Creatinine 0.82 Est GFR (MDRD) Non-Af 79 BUN/Creatinine Ratio 11.8 Glucose 102 H Calcium 9.1 Urine Color Straw Urine Clarity Clear Urine pH 6.0 Ur Specific [place] 1.010 Urine Protein Negative Urine Glucose (UA) Normal Urine Ketones Negative Urine Occult Blood Negative Urine Nitrite Negative Urine Bilirubin Negative Urine Urobilinogen Normal Ur Leukocyte Esterase 25 H Urine RBC 0-5 SEEN Urine WBC 0-5 SEEN Ur Squamous Epith Cells 0-5 SEEN Urine Bacteria 0 SEEN Urine Mucus 0 SEEN Radiography Diagnostic Testing: Clinical Impression(s) from Imaging Studies Lumbar Spine CT 01/27/25 17:21 IMPRESSION: NO ACUTE LUMBAR FRACTURE. Reading Location: [id number] Discharge Plan Triage Chief Complaint: Complaint ED Provider: Mahesh Mccauley Dx/Rx/DC Orders Prescriptions: No Action atorvastatin [Lipitor] 10 mg tablet 10 mg PO QDAY tiotropium bromide [Spiriva Respimat] 2.5 mcg/actuation mist 2 puff INHALATION QDAY omeprazole 40 mg capsule,delayed release(DR/EC) 40 mg PO BID metoprolol tartrate 50 mg tablet 50 mg PO BID fluticasone furoate-vilanterol 200-25 mcg/dose blister with device 1 inh INHALATION DAILY albuterol sulfate 90 mcg/actuation HFA aerosol inhaler 2 puff inhalation Q6H PRN (Reason: Sob &/Or Wheezing) budesonide 0.5 MG/2 ML suspension for nebulization 0.5 mg inhalation Q12H.RT 0RF potassium chloride 20 mEq tablet,ER particles/crystals 20 meq PO DAILY nifedipine 60 mg tablet extended release 24hr PO Patient Comments: [NO ORIGINAL SIG] furosemide 20 mg tablet 20 mg PO DAILY aripiprazole 5 mg tablet 5 mg PO DAILY Ingrezza 40 mg capsule 40 mg PO DAILY Breztri Aerosphere 160-9-4.8 mcg/actuation HFA aerosol inhaler inhalation buspirone 10 mg tablet 10 mg PO BID aspirin 81 mg Tablet,Chewable 81 mg PO BREAKFAST 30 Days Qty: 30 2RF lisinopril 40 mg tablet 40 mg PO DAILY 30 Days Qty: 30 0RF Patient Comments: NOTIFIED THAT PT TAKES BID NOT DAILY Primary Care Provider: Valentin Paige Referrals: Valentin Paige MD [Primary Care Provider] - Print Language: [place]
[2025-01-27 18:52] VITALS: BP 143/79; PULSE 73; RESP 16; TEMP 36.4; O2SAT 91
[2025-01-27 18:53] VITALS: BP 143/79; PULSE 71
== END 2025-01-27 18:59 | disposition home or self-care (01) ==
PROVIDERS: Emergency Provider Emergency Medicine; PCP Family Medicine; Visit Provider Emergency Medicine
DX: M54.9 Dorsalgia, unspecified (principal); F31.9 Bipolar disorder, unspecified; J44.9 Chronic obstructive pulmonary disease, unspecified; I10 Essential (primary) hypertension; E78.5 Hyperlipidemia, unspecified; K21.9 Gastro-esophageal reflux disease without esophagitis; Z79.899 Other long term (current) drug therapy; J45.909 Unspecified asthma, uncomplicated; Z79.51 Long term (current) use of inhaled steroids; F41.8 Other specified anxiety disorders; Z79.82 Long term (current) use of aspirin; Z98.51 Tubal ligation status; Z87.891 Personal history of nicotine dependence; G89.29 Other chronic pain
CPT/HCPCS: 72131; 80048; 81001; 85027; 96374; 96375; 99284; A4216; J2405

== ENCOUNTER 2025-05-26 10:33 | Day surgery (SDC) | payer MEDICARE, MEDICAID, SELFPAY ==
--- NOTE | 2025-05-20 22:39 | PAT.ANESEVAL ---
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 When Was Last Pacemaker Check QUESTION #4 FULL TEXT: You/Your Family Experience fever (hyperthermia) with Anesthesia Last Oral Intake Last Oral intake: Last Oral Intake NPO since Meds taken in AM with sips of water? Meds patient instructed to take am of surgery PONV PONV - vp publisher development: PONV - vp publisher development Female Yes 05/20/25 10:02 HX of Motion Sickness No 05/20/25 10:02 HX of N/V After Surgery No 05/20/25 10:02 Non-Smoker Yes 05/20/25 10:02 Duration of Surgery greater No 05/20/25 10:02 than 60 minutes Number of Risk Factors 2 05/20/25 10:02 PONV Score Moderate Risk 05/20/25 10:02 Height & Weight Height & Weight: Anesthesia: Height & Weight Height 5 ft 4 in 05/14/25 09:02 Respiratory Assessment Respiratory Assessment - vp publisher development: Respiratory Tract Infection Hx - vp publisher development Hx Respiratory Tract Infection No 05/20/25 10:02 STOP Sleep Apnea STOP Sleep Apnea - vp publisher development: STOP Sleep Apnea - vp publisher development Hx Hypertension Yes: CONTROLLED WITH MEDS 05/20/25 10:02 Hx Sleep Apnea No 05/20/25 10:02 CPAP No 12/19/23 21:39 BIPAP No 12/19/23 21:39 Do you snore loudly (louder No 05/20/25 10:02 than talking or can be heard Do you often feel tired/ No 05/20/25 10:02 fatigued/ sleepy during daytime? Has anyone observed you stop No 05/20/25 10:02 breathing during sleep? STOP Results Negative 05/20/25 10:02 QUESTION #5 FULL TEXT : Do you snore loudly (louder than talking or can be heard through closed doors)? Tobacco Use History Tobacco Use History - vp publisher development: Tobacco Use History - vp publisher development Tobacco Use Smoking Status Former smoker 05/20/25 10:02 Hx Tobacco Use Yes 05/20/25 10:02 Years Smoking Packs Smoked per Day Smoking Cessation Date was No - quit smoking greater 05/20/25 10:02 within the last 15 years than 15 years ago Hx Smoking Cessation Date 08/21/14 05/20/25 10:02 Hx Smoking Cessation Yes 05/20/25 10:02 Counseling Hematologic Medial History Hematologic Hx - vp publisher development: Hematologic Medical Hx - family resource specialist Hx of Blood Transfusion No 05/20/25 10:02 Hx of Transfusion in last 3 No 05/20/25 10:02 Months Date of Last Transfusion (if within last 3 months) Ever experience any problems No 05/20/25 10:02 with transfusion(s)? Specify any problems Hx of Preganancy in last 3 No 05/20/25 10:02 Months Nurse Filling Out Transfusion [email or web address] 05/20/25 10:02 & Questions: Date: 05/20/25 05/20/25 10:02 Time: 10:06 05/20/25 10:02 Patient unable to answer at this time (ie. confused, unrespo /Reproduction History /Reproductive History - vp publisher development: /Reproductive Hx- vp publisher development Hx Now Gestational Age (in weeks): EDC: Hx Hx Para Hx Section SAB PFSH Medical History Former smoker Cancer Wears glasses Wears dentures Back pain Leg cramps History of stress test History of echocardiogram Cardiology follow-up encounter Preop cardiovascular exam Anxiety and depression Nonrheumatic aortic (valve) insufficiency Non-rheumatic aortic sclerosis Bipolar disorder Bicuspid aortic valve Essential hypertension Asthma Hemorrhoid GERD (gastroesophageal reflux disease) Personal history of colonic polyps Dyslipidemia Bilateral carotid artery stenosis without cerebral infarction COPD (chronic obstructive pulmonary disease) Home Medications ?Medication ?Instructions ?Recorded ?Last Taken ?Type atorvastatin 10 mg tablet (Lipitor) 10 mg PO QDAY CHOLESTEROL 04/03/18 12/19/23 History omeprazole 40 mg capsule,delayed 40 mg PO BID GERD 04/03/18 12/19/23 History release albuterol sulfate 90 mcg/actuation 2 puff inhalation Q6H PRN Sob &/Or 04/09/19 05/20/19 03:30 History aerosol inhaler Wheezing metoprolol tartrate 50 mg tablet 50 mg PO BID BP 04/09/19 12/19/23 History budesonide 0.5 mg/2 mL suspension 0.5 mg (2 mL) inhalation Q12H.RT 05/24/19 12/19/23 Rx for nebulization aspirin 81 mg chewable tablet 81 mg PO BREAKFAST 30 days #30 tabs 12/22/23 Unknown Rx lisinopril 40 mg tablet 40 mg PO DAILY BP 30 days #30 tabs 12/22/23 12/19/23 Rx aripiprazole 5 mg tablet 5 mg PO DAILY 01/27/25 Unknown History furosemide 20 mg tablet 20 mg PO DAILY 01/27/25 Unknown History nifedipine 90 mg tablet,extended 90 mg PO QDAY 05/14/25 Unknown History release valbenazine 80 mg capsule 80 mg PO QDAY 05/14/25 Unknown History (Ingrezza) Allergy/AdvReac Type Severity Reaction Status Date / Time amlodipine (From Norvasc) Allergy Intermediate Swelling Verified 05/20/25 09:59 fluoxetine (From Prozac) Allergy Intermediate mental Verified 05/20/25 09:59 status change Family History Mother Diabetes Heart disease Hypertension CHF (congestive heart failure) Father Heart disease Diabetes Hypertension Ulcer CHF (congestive heart failure) Brother Kidney disease Sister Cancer Surgical History History of fracture of clavicle History of shoulder surgery History of colonoscopy (~2014) History of tubal ligation History of kidney donation Social History household members: family Smoking Status: Former smoker how long ago did patient quit smoking: Quit 10 yrs prior, smoked 2 ppd since teen until quit. alcohol intake: current alcohol intake frequency: holidays/special occasions only Alcohol type: wine substance use type: does not use caffeine: Yes Type: carbonated beverages Number of servings: 1, coffee Number of servings: 2 and tea Number of servings: 2 Audit: Pertinent Findings Pertinent Findings EKG Perinent findings: 03/19/2024. Sinus rhythm within normal limits. Stress test pertinent findings: August 23, 2021. No ischemia. Normal systolic function. 05/28/2018. EF of 51%. No obvious ischemia. No infarct. Echo (EF%) pertinent findings: April 18, 2024. EF is 65%. Bicuspid aortic valve. Peak aortic valve gradient is 26 mmHg. Mean aortic gradient is 14 mmHg Consult pertinent findings: 05/14/2025. Carter BALDERAS. 1. Aortic insufficiency-most recent echo demonstrates bicuspid aortic valve. Mean aortic valve gradient is 14 mmHg. Mild insufficiency. Patient is not symptomatic. 2. [id number]. Continue current meds. Recommendation Anesthesia Recommendation Anesthesia recommendation: OPTIMIZED for anesthesia
--- NOTE | 2025-05-20 22:39 | PAT.ANE_ITS ---
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 When Was Last Pacemaker Check QUESTION #4 FULL TEXT: You/Your Family Experience fever (hyperthermia) with Anesthesia Last Oral Intake Last Oral intake: Last Oral Intake NPO since Meds taken in AM with sips of water? 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 Female Yes 05/20/25 10:02 HX of Motion Sickness No 05/20/25 10:02 HX of N/V After Surgery No 05/20/25 10:02 Non-Smoker Yes 05/20/25 10:02 Duration of Surgery greater No 05/20/25 10:02 than 60 minutes Number of Risk Factors 2 05/20/25 10:02 PONV Score Moderate Risk 05/20/25 10:02 Height & Weight Height & Weight: Anesthesia: Height & Weight Height 5 ft 4 in 05/14/25 09:02 Respiratory Assessment Respiratory Assessment - cambering machine operator: Respiratory Tract Infection Hx - cambering machine operator Hx Respiratory Tract Infection No 05/20/25 10:02 STOP Sleep Apnea STOP Sleep Apnea - cambering machine operator: STOP Sleep Apnea - cambering machine operator Hx Hypertension Yes: CONTROLLED WITH MEDS 05/20/25 10:02 Hx Sleep Apnea No 05/20/25 10:02 CPAP No 12/19/23 21:39 BIPAP No 12/19/23 21:39 Do you snore loudly (louder No 05/20/25 10:02 than talking or can be heard Do you often feel tired/ No 05/20/25 10:02 fatigued/ sleepy during daytime? Has anyone observed you stop No 05/20/25 10:02 breathing during sleep? STOP Results Negative 05/20/25 10:02 QUESTION #5 FULL TEXT : Do you snore loudly (louder than talking or can be heard through closed doors)? Tobacco Use History Tobacco Use History - cambering machine operator: Tobacco Use History - cambering machine operator Tobacco Use Smoking Status Former smoker 05/20/25 10:02 Hx Tobacco Use Yes 05/20/25 10:02
[2025-05-26] VITALS (10 sets, daily range): BP systolic 119–156; BP diastolic 60–75; PULSE 58–68; RESP 16–20; TEMP 36.3–37; O2SAT 92–98; BMI 28.0
[2025-05-26] MEDS: Lactated Ringers 1,000 ML 15 ML IV (11:00)
--- NOTE | 2025-05-26 11:05 | PRE.ANES_ITS ---
ASA Classification* ASA Classification ASA Classification: 3 Assessment & Plan Anesthesia* Anesthesia Assessment Anesthesia Assessment: Discussed sedation and/or anesthesia options, risks, benefits, and alternatives with patient/parents/legal guardian/POA. Questions invited. The patient/parents/legal guardian/POA seems to understand and agrees to proceed with anesthesia plan. Reviewed the physical assessment, medical history, allergy history and patient home medications list prior to surgery/procedure/anesthetic and documented any changes. Performed airway and anesthesia risk assessments. Anesthesia Type Anesthesia Type: MAC History Source History Obtained from:: Patient and Chart Anesthesia Focused Assessment* Temperature: 98.2 F Pulse Rate: 62 Blood Pressure: 156/73 Respiratory Rate: 16 Pulse Ox: 98 Oxygen Delivery Method: Room Air Airway Assessment Mouth opens: >3 cm Mallampati Score: III Teeth Condition: Missing (Patient is edentulous.) Neck Range of motion (ROM): Limited ROM (Somewhat Decreased) Labs Anesthesia Preop lab: CBC WBC, (4.4-11.0) 7.4 K/mm3 01/27/25, 17: RBC, (4.2-5.4) 4.08 M/mm3 L 01/27/25, 17:30 Hgb, (12.0-15.0) 11.1 g/dL L 01/27/25, 17:30 Hct, (37-47) 34.2 % L 01/27/25, 17:30 Plt Count, (150-450) 320 K/mm3 01/27/25, 17:30 CHEMISTRY Potassium, (3.3-5.1) 3.6 mmol/L 01/27/25, 17:30 Sodium, (133-145) 140 mmol/L 01/27/25, 17:30 Magnesium, (1.6-2.6) 2.1 mg/dL 12/19/23, 14:12 Phosphorus, (2.5-4.9) 2.0 mg/dL L 09/11/15, 09:05 BUN, (4-19) 10 mg/dL 01/27/25, 17:30 Creatinine, (0.70-1.20) 0.82 mg/dL 01/27/25, 17:30 Glucose, (70-99) 102 mg/dL H 01/27/25, 17:30 POC Glucose, (70-110) 141 mg/dL H 05/20/19, 05:50 TSH, (0.358-3.74) 1.29 uIU/mL 09/09/15, 16:45 COAG PT, (11.7-14.9) 13.1 SECONDS 05/15/19, 16:12 Pre-Assessment Diagnosis/Proposed Procedure Planned Operative Procedure(s): CAUDAL Anesthesia History Anesthesia History - communications administrator: Anesthesia History - communications administrator Hx Hospitalization Yes: [facility] 05/20/25 10:02 Any Problems With Anesthesia No 05/20/25 10:02 Cholinesterase deficiency No 05/20/25 10:02 You/Your Family Experience No 05/20/25 10:02 fever (hyperthermia) with Relationship Recent Exposure to Contagious No 05/26/25 10:54 Disease Does patient have nerve No 05/20/25 10:02 stimulator Patient instructed to have device shut off --Does patient have Pacemaker No 05/26/25 10:54 or ICD? When Was Last Pacemaker Check QUESTION #4 FULL TEXT: You/Your Family Experience fever (hyperthermia) with Anesthesia Last Oral Intake Last Oral intake: Last Oral Intake NPO since 23:00 05/26/25 10:54 Meds taken in AM with sips of No 05/26/25 10:54 water? Meds patient instructed to take am of surgery PONV PONV - communications administrator: PONV - communications administrator Female Yes 05/20/25 10:02 HX of Motion Sickness No 05/20/25 10:02 HX of N/V After Surgery No 05/20/25 10:02 Non-Smoker Yes 05/20/25 10:02 Duration of Surgery greater No 05/20/25 10:02 than 60 minutes Number of Risk Factors 2 05/20/25 10:02 PONV Score Moderate Risk 05/20/25 10:02 Height & Weight Height & Weight: Anesthesia: Height & Weight Height 5 ft 4 in 05/26/25 10:54 Weight: 74 kg 05/26/25 10:54 Body Mass Index (BMI) 28.0 05/26/25 10:54 Respiratory Assessment Respiratory Assessment - communications administrator: Respiratory Tract Infection Hx - communications administrator Hx Respiratory Tract Infection No 05/20/25 10:02 STOP Sleep Apnea STOP Sleep Apnea - communications administrator: STOP Sleep Apnea - communications administrator Hx Hypertension Yes: CONTROLLED WITH MEDS 05/20/25 10:02 Hx Sleep Apnea No 05/20/25 10:02 CPAP No 12/19/23 21:39 BIPAP No 12/19/23 21:39 Do you snore loudly (louder No 05/20/25 10:02 than talking or can be heard Do you often feel tired/ No 05/20/25 10:02 fatigued/ sleepy during daytime? Has anyone observed you stop No 05/20/25 10:02 breathing during sleep? STOP Results Negative 05/20/25 10:02 QUESTION #5 FULL TEXT : Do you snore loudly (louder than talking or can be heard through closed doors)? 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 Specify any problems Hx of Preganancy in last 3 No 05/20/25 10:02 Months Nurse Filling Out Transfusion [email or web address] 05/20/25 10:02 & Questions: Date: 05/20/25 05/20/25 10:02 Time: 10:06 05/20/25 10:02 Patient unable to answer at this time (ie. confused, unrespo /Reproduction History /Reproductive History - communications administrator: /Reproductive Hx- communications administrator Hx Now Gestational Age (in weeks): EDC: Hx Hx Para Hx Section SAB Active Medications Active Medications: Current Medications Generic Name Dose Route Start Last Admin Trade Name Freq PRN Reason Stop Dose Admin Lactated Ringer's 1,000 mls @ 15 mls/hr 05/26/25 10:45 05/26/25 11:00 IV 15 mls/hr .Q48H LISA Administration PFSH Medical History Former smoker Cancer Wears glasses Wears dentures Back pain Leg cramps History of stress test History of echocardiogram Cardiology follow-up encounter Preop cardiovascular exam Anxiety and depression Nonrheumatic aortic (valve) insufficiency Non-rheumatic aortic sclerosis Bipolar disorder Bicuspid aortic valve Essential hypertension Asthma Hemorrhoid GERD (gastroesophageal reflux disease) Personal history of colonic polyps Dyslipidemia Bilateral carotid artery stenosis without cerebral infarction COPD (chronic obstructive pulmonary disease) Home Medications ?Medication ?Instructions ?Recorded ?Last Taken ?Type atorvastatin 10 mg tablet (Lipitor) 10 mg PO QDAY CHOL ESTEROL 04/03/18 12/19/23 History omeprazole 40 mg capsule,delayed 40 mg PO BID GERD 12/19/23 History release albuterol sulfate 90 mcg/actuation 2 puff inhalation Q 6H PRN Sob &/Or 04/09/19 05/20/19 03:30 History aerosol inhaler Wheezing metoprolol tartrate 50 mg tablet 50 mg PO BID BP 04/0912/19/23 History budesonide 0.5 mg/2 mL suspension 0.5 mg (2 mL) inhala tion Q12H.RT 05/24/19 12/19/23 Rx for nebulization aspirin 81 mg chewable tablet 81 mg PO BREAKFAST 30 da ys #30 tabs 12/22/23 Unknown Rx Held on 05/26/25. Instructions: pt ran out lisinopril 40 mg tablet 40 mg PO DAILY BP 30 days #3 0 tabs 12/22/23 12/19/23 Rx aripiprazole 5 mg tablet 5 mg PO DAILY 01/27/25 Unkno wn History furosemide 20 mg tablet 20 mg PO DAILY 01/27/25 Unkn own History nifedipine 90 mg tablet,extended 90 mg PO QDAY 5 Unknown History release valbenazine 80 mg capsule 80 mg PO QDAY 05/14/25 Unkno wn History (Ingrezza) Allergy/AdvReac Type Severity Reaction Status Date / Time amlodipine (From [facility]) Allergy Intermediate Swelling Verified 05/26/25 10:52 fluoxetine (From Prozac) Allergy Intermediate mental Verified 05/26/25 10:52 status change Family History Mother Diabetes Heart disease Hypertension CHF (congestive heart failure) Father Heart disease Diabetes Hypertension Ulcer CHF (congestive heart failure) Brother Kidney disease Sister Cancer Surgical History History of fracture of clavicle History of shoulder surgery History of colonoscopy (~2014) History of tubal ligation History of kidney donation Social History household members: family Smoking Status: Former smoker how long ago did patient quit smoking: Quit 10 yrs prior, smoked 2 ppd since teen until quit. alcohol intake: current alcohol intake frequency: holidays/special occasions only Alcohol type: wine substance use type: does not use caffeine: Yes Type: carbonated beverages Number of servings: 1, coffee Number of servings: 2 and tea Number of servings: 2 Review of Systems (Anesthesia) ROS Narrative System reviewed and no additional complaints, except as documented. Physical Exam Resp clear to auscultation bilaterally
--- NOTE | 2025-05-26 11:10 | RAD_ITS ---
PROCEDURE: FLUOR GUIDANCE FOR SPINE INJ 05/26/2025 REASON FOR EXAM: BLOCK, CAUDAL TECHNIQUE: Procedure Code: RADSPN Modality: DX Procedure: FLUOR GUIDANCE FOR SPINE INJ. Intraoperative fluoroscopic services provided for caudal block. Radiation dose: 2.11 mGy. Fluoroscopy: 3.2 seconds. 1 image was submitted. COMPARISON: None FINDINGS: Intraoperative fluoroscopic services provided for caudal block. RAD/Fluor Guidance for Spine Inj IMPRESSION: Intraoperative fluoroscopic services provided for caudal block. Reading Location: [id number]
[2025-05-26] MEDS: 0.9% Normal Saline (Pres. free 10 ML Vial (11:22)
[2025-05-26] MEDS: Lidocaine 1% (5 ml sdv) 5 ML Vial (11:22)
--- NOTE | 2025-05-26 11:23 | PCM.POST.ANE ---
Anesthesia: Postop Eval I Current Vital Signs Temperature: 98.6 F Pulse Rate: 68 Blood Pressure: 149/73 Respiratory Rate: 20 Pulse Ox: 96 Assessment Airway patent: Yes Spontaneous unlabored respirations: Yes nausea: No Vomiting: No Anesthesia Complication: No Fluid Hydration Crystalloid volume administer (ml): 100 Total IV fluid infused: 100 Progress Note Anesthesia document: Postop Eval 1 completed: Yes
--- NOTE | 2025-05-26 11:26 | OP.PCM_ITS ---
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 BLOOD LOSS: Minimal. COMPLICATIONS: None. DESCRIPTION OF PROCEDURE: History and physical of today was reviewed. Risks and benefits of the procedure were explained. The patient understood and agreed to proceed. Informed consent was obtained. IV inserted per routine protocol. The patient was taken to the operating room and placed in the prone position with a pillow positioned underneath the abdomen. The lower back and tailbone area was prepped and draped in a sterile fashion using iodine x3. Under fluoroscopy guidance on a lateral view, the caudal space was identified. The skin and subcutaneous tissue was anesthetized with approximately 3 mL of 1% lidocaine using a 25-gauge regular needle. Under direct visualization with fluoroscopy, using a 22-gauge 3-1/2-inch spinal needle, the needle was advanced via the skin through the sacral hiatus. The tip of the needle was passed through the sacrococcygeal ligament and advanced to approximately S4 area. After negative aspiration of blood or CSF, a total of 3 mL of contrast was injected to confirm correct placement of the needle as well as cephalad spread. The spread was followed to approximately L5 area. After confirmation on AP as well as lateral view and repeated negative aspiration, a total of 15 mL of preservative-free 0.125% Marcaine with 80 mg of Depo-Medrol was injected easily. The needle was then removed intact. The patient experienced no sign or symptoms of intrathecal or intravascular injection. The patient experienced no paresthesia. The procedure was completed without any apparent difficulty or any complications. The patient appeared to tolerate it well. ASSESSMENT AND PLAN: This is a 65-year-old female with lumbosacral radiculopathy lumbosacral spinal stenosis, lumbosacral degenerative disc disease status post diagnostic/therapeutic caudal epidural steroid injection under fluoroscopic guidance, patient will continue her current medications, patient will follow-up in approximately 2 weeks for reevaluation. Surgical Findings: 0 Complications Complications: No Admit VTE Documentation VTE Present on Admission: No VTE Mechan Device Prophylaxis: None VTE Pharm Prophylaxis ordered?: No
--- NOTE | 2025-05-26 12:13 | POSTOPAN2_ITS ---
Anesthesia Postop Eval I Sum Postop Eval Completion status Anesthesia document: Postop Eval 1 completed: Yes Anesthesia Postop Eval I Summary Anesthesia Postop Eval I Summary: Anesthesia Postop Eval I: Assessment Summary Airway patent Yes 05/26/25 11:24 LEARNING OPERATIONS SPECIALIST.CSIR Spontaneous unlabored Yes 05/26/25 11:24 LEARNING OPERATIONS SPECIALIST.CSIR respirations Mental status nausea No 05/26/25 11:24 LEARNING OPERATIONS SPECIALIST.CSIR Vomiting No 05/26/25 11:24 LEARNING OPERATIONS SPECIALIST.CSIR Anesthesia Postop Eval I: Fluid Summary Crystalloid volume administer 100 05/26/25 11:24 LEARNING OPERATIONS SPECIALIST.CSIR (ml) Colloids volume administered ( ml) Blood Product volume administered (ml) Total IV fluid infused 100 05/26/25 11:24 LEARNING OPERATIONS SPECIALIST.CSIR Anesthesia Postop Eval I: Summary Notes Anesthesia Complication No 05/26/25 11:24 LEARNING OPERATIONS SPECIALIST.CSIR Anesthesia Complication Comment: Post-operative progress note Anesthesia: Postop Eval II Evaluation Mental status: Awake and Calm Pain Level: 1 nausea: No Vomiting: No Complications Anesthesia Complication: No
--- NOTE | 2025-05-26 12:13 | PCM.POSTANE2 ---
Anesthesia Postop Eval I Sum Postop Eval Completion status Anesthesia document: Postop Eval 1 completed: Yes Anesthesia Postop Eval I Summary Anesthesia Postop Eval I Summary: Anesthesia Postop Eval I: Assessment Summary Airway patent Yes 05/26/25 11:24 VIDEO RECORDER [email or web address].CSIR Spontaneous unlabored Yes 05/26/25 11:24 VIDEO RECORDER MECHANIC.CSIR respirations Mental status nausea No 05/26/25 11:24 VIDEO RECORDER MECHANIC.CSIR Vomiting No 05/26/25 11:24 VIDEO RECORDER MECHANIC.CSIR Anesthesia Postop Eval I: Fluid Summary Crystalloid volume administer 100 05/26/25 11:24 VIDEO RECORDER MECHANIC.CSIR (ml) Colloids volume administered ( ml) Blood Product volume administered (ml) Total IV fluid infused 100 05/26/25 11:24 VIDEO RECORDER MECHANIC.CSIR Anesthesia Postop Eval I: Summary Notes Anesthesia Complication No 05/26/25 11:24 VIDEO RECORDER MECHANIC.CSIR Anesthesia Complication Comment: Post-operative progress note Anesthesia: Postop Eval II Evaluation Mental status: Awake and Calm Pain Level: 1 nausea: No Vomiting: No Complications Anesthesia Complication: No
== END 2025-05-26 12:33 | disposition home or self-care (01) ==
LOC: SDC 10:36 → AC 10:37
PROVIDERS: PCP Family Medicine; Referring Provider Anesthesiology Pain Medicine; Visit Provider Anesthesiology Pain Medicine
PROC: 3E0S3BZ Introduction of Anesthetic Agent into Epidural Space, Percutaneous Approach (ICD-10-PCS; CPT 62282; principal; 2025-05-26 12:05)
DX: M51.17 Intervertebral disc disorders with radiculopathy, lumbosacral region (principal); J44.9 Chronic obstructive pulmonary disease, unspecified; M47.27 Other spondylosis with radiculopathy, lumbosacral region; M48.07 Spinal stenosis, lumbosacral region; I10 Essential (primary) hypertension; E78.5 Hyperlipidemia, unspecified; Z79.02 Long term (current) use of antithrombotics/antiplatelets; Z79.82 Long term (current) use of aspirin; Z79.899 Other long term (current) drug therapy
CPT/HCPCS: 62323; 64483; 77003; J2405